=== PATIENT | female | born 1930 | race Caucasian/White ===

== ENCOUNTER 2018-02-24 13:14 | Inpatient (IN) | payer MEDICARE, OTHER ==
[~2018-02-24] VITALS: Ht 149.9 cm; Wt 58.1 kg
--- NOTE | ~2018-02-24 | PROC ---
[address] [address] PROCEDURE REPORT Name: ALVINJOSE Room: [address] IN M.R.#: [id number] Admission: 02/24/18 Attend Phys: Tania Cantu Discharge: Date of : 31 Report #: [id number] THIS REPORT FOR: //name// For GI report, please see the Provation report in Perceptive 7 content. By: [facility] Records Staff [facility] /PATRIC
--- NOTE | ~2018-02-24 | OP ---
[facility] [address] [place] [address] OPERATIVE REPORT Name: ROMEL ESQUIVEL Room: [address] IN M.R.#: [id number] Admission: 02/24/18 Attend Phys: Tania Cantu Discharge: Date of : 31 Report #: [id number] THIS REPORT FOR: //name// CC: Martina Ohara DATE OF SERVICE: 02/27/2018 PREPROCEDURE DIAGNOSIS: Cholecystitis. POSTOPERATIVE DIAGNOSES: Cholelithiasis, cholecystitis. SURGEON: Martine Hardy M.D. SITE IDENTIFICATION SPECIALIST: Eliceo Mckeon, PGY-3; Sumanth Goldstein, PGY-2. OPERATION PERFORMED: Laparoscopic cholecystectomy with intraoperative cholangiogram. ANESTHESIA: General endotracheal and local. ESTIMATED BLOOD LOSS: 250 mL. SPECIMEN REMOVED: Gallbladder. COMPLICATIONS: None. INDICATIONS FOR PROCEDURE: The patient is an 87-year-old female who was admitted to the hospital with abdominal pain. She began having pain after eating a high fat meal without any nausea, vomiting, fevers or chills. Pain was in the right upper quadrant with radiation to the right scapula. On ultrasound, she was found to have thickened gallbladder wall as well as gallstones. On presentation, she also had symptoms of urinary tract infection and an elevated troponin. Imaging did reveal dilated ducts, so she underwent an MRCP preoperatively that showed intra and extrahepatic ductal dilatation. However, her bilirubin was not elevated. Her AST, ALT and alkaline phosphatase were elevated, but down trending prior to her operation, DESCRIPTION OF PROCEDURE: After informed consent was obtained, with risks including but not limited to bleeding, infection, damage to common bile duct, damage to other intra-abdominal structures, hernia pain at incisions, and catastrophic complications including cardiopulmonary failure and , the patient was brought to the operating room and placed in a supine position. General anesthesia was administered. The patient was [place] [address] OPERATIVE REPORT Name: ROMEL ESQUIVEL Room: [address] IN [facility].#: [id number] Admission: 02/24/18 Attend Phys: Tania Cantu Discharge: Date of : 31 Report #: [id number] usual sterile fashion. Antibiotics were normal scheduled antibiotics given on the floor. A surgical pause was held to confirm proper patient and procedure. A 12 mm vertical incision was made superior to the umbilicus. Dissection was carried down using Bovie electrocautery until the fascia was identified and elevated with 2 Kochers, incised further using Bovie electrocautery. The peritoneum was bluntly entered. A finger sweep was performed to ensure no adhesions underlying. The 0 Vicryl was placed on either side of the fascia. Tej port was introduced under direct visualization and secured with the 0 Vicryl. The abdomen was insufflated. Camera was introduced and a brief exploration of the abdomen was undertaken. No damage to structures under the incision was noted. Attention was turned to the right upper quadrant. There was a great deal of omentum stuck to the liver and the gallbladder fossa. This was bluntly swept down with ease. An additional 11 mm port was placed in the epigastrium and two 5 mm ports in the right upper quadrant were all introduced under direct visualization. After these adhesions were swept down, the gallbladder was found to be distended. It was aspirated with dark green contents removed, approximately 60 mL. The gallbladder was then elevated. Adhesions between the duodenum and the gallbladder as well as the omentum were taken down with a combination of cautery and Maryland dissector. The fundus of the gallbladder was retracted laterally. The cystic duct was carefully dissected using the Maryland dissector and the cystic artery as well. Retraction of the gallbladder caused a small portion to tear from the liver bed with some bleeding on the liver bed. Hemostasis was achieved using cautery. A critical view was obtained and confirmed. A clip was placed distally on the cystic duct. A 14 gauge Angiocath was introduced through the right upper quadrant through which the cholangiogram catheter was introduced. Scissors were then used to make an incision in the cystic duct. The cholangiogram catheter was then introduced through this hole and secured with a clip. A cholangiogram was performed with dilated ducts intra- and extrahepatic noted. There was great resistance to filling. There was noted to be contrast into the duodenum. The cystic duct, common duct, common hepatic ducts on left and right were all identified and the cystic duct was confirmed as previously thought on critical view. Glucagon was administered and additional saline and contrast was flushed to attempt to decrease the pressure and increase further flow into the duodenum. This was unsuccessful. The clip securing the catheter was removed. The catheter was removed from the incision. The cystic duct was quadruply clipped proximally. The cystic artery was doubly clipped proximally and singly clipped distally. These were cut using scissors. Gallbladder was then dissected carefully free from the liver bed using Bovie electrocautery. The gallbladder again tore from the liver bed causing some bleeding from the liver bed. This was cauterized extensively. During cautery the bleeding became more brisk. Pressure was held directly with immediate hemostasis. Surgicel was introduced into the abdomen and direct pressure was held against this portion of the liver bed and the gallbladder fossa while the remainder of the gallbladder was dissected free, placed in an EndoCatch bag and removed through the 11 mm epigastric port. The liver bed was inspected and noted to be hemostatic. [address] [address] OPERATIVE REPORT Name: ROMEL ESQUIVEL Room: [address] IN [facility].#: [id number] Admission: 02/24/18 Attend Phys: Tania Cantu Discharge: Date of : 31 Report #: [id number] FloSeal was used to fill the gallbladder fossa and an additional piece of Surgicel was placed within the gallbladder fossa. A suction librarian school was used to copiously irrigate and suction the right upper quadrant. The area was hemostatic after application of topical agents. All ports were removed under direct visualization. The abdomen was desufflated and reinsufflated to note any further bleeding under less pressure, it was still hemostatic. Prior to de-sufflation the Eriberto-Cory was used to close the epigastric port with an 0 Vicryl. The abdomen was desufflated. The fascia was elevated using previous stay sutures. An additional 0 Vicryl was placed in a [id number]-[id number]-hguzi fashion to close the fascia. The stay sutures were closed over top of this. A 4-0 Monocryl was used to close all skin incisions. Wounds were cleansed and dressed with Dermabond. The patient tolerated the procedure well and was transferred to the PACU in stable condition. By: 1600 [id number] nikki Lester
[~2018-02-24 13:14] MED LIST: ASPIR 8181 MG PO; BYSTOLIC 5 MG5 M1 PO; CEFUROXIME500 MG PO; CIPRO500 MG PO; COZAAR 50 MG TA50 M2 PO; COZAAR100 MG PO; FLAGYL500 MG PO; HYDRALAZINE 10M10 MG PO; NAPROSYN500 MG PO; PANTOPRAZOLE SO40 M1 PO; PRAVACHOL20 MG PO; RANEXA500 MG PO
[2018-02-24 13:16] VITALS: BP 175/64
[2018-02-24 13:38] LABS: HEMATOCRIT 28.1 % (37.0-47.0); HEMOGLOBIN 9.4 gm/dL (12.0-15.0); MCHC 33.5 g/dL (28.0-37.0); MCV 77.6 fL (80.0-100.0); NUCLEATED RBCS 0 /100WBC; PLATELET COUNT* 304 thou/uL (150-400); RBC 3.62 mil/uL (4.20-5.00); RDW-CV 15.3 % (10.5-14.5); WBC 9.6 thou/uL (4.0-11.0)
[2018-02-24] MEDS ORDERED: FLAGYL500 MG PO (13:45)
[2018-02-24] MEDS ORDERED: LEXAPRO 10 MG T10 M2 PO (13:45)
[2018-02-24 13:46] LABS: ANION GAP 10 mmol/L (7-16); BUN 20 mg/dL (7-18); CALCIUM 8.8 mg/dL (8.5-10.1); CHLORIDE 96 mmol/L (98-107); CO2 22 mmol/L (21-32); CREATININE 2.1 mg/dL (0.6-1.3); GLUCOSE 162 mg/dL (70-99); POTASSIUM 3.6 mmol/L (3.5-5.1); SODIUM 128 mmol/L (136-145)
[2018-02-24] MEDS ORDERED: VITAMIN D2000 UNIT PO (13:46)
[2018-02-24] MEDS ORDERED: PROTONIX 20 MG20 M1 PO (13:46)
[2018-02-24 13:49] LABS: APTT 30.3 Seconds (25.0-31.3); INR 1.1; PROTIME 10.5 Seconds (9.20-11.50)
[2018-02-24 14:05] LABS: ALBUMIN 3.8 g/dL (3.4-5.0); ALKALINE PHOSPHATASE 212 U/L (46-116); CK-MB MASS 1.9 ng/mL (<0.5-3.6); LIPASE 174 U/L (73-393); MAGNESIUM 1.7 mg/dL (1.8-2.4); NT-PRO BRAIN NAT PEPTIDE 1339 pg/mL (<300); SGOT 117 U/L (15-37); SGPT 45 U/L (30-65); TOTAL BILIRUBIN 0.8 mg/dL (<0.1-1.0); TOTAL PROTEIN 7.4 g/dL (6.4-8.2); TROPONIN-I LEVEL <0.06 ng/mL (<0.06)
[2018-02-24 14:40] LABS: ABSOLUTE LYMPHOCYTES 0.3 thou/uL (0.8-5.3); ABSOLUTE MONOCYTES 0.2 thou/uL (0.0-1.2); ABSOLUTE NEUTROPHILS 9.1 thou/uL (1.6-8.1); ANISOCYTOSIS Occasional; PLATELET ESTIMATE ADEQUATE
[2018-02-24 14:41] LABS: MICROCYTES Occasional
[2018-02-24 16:05] VITALS: BP 147/82
[2018-02-24 16:34] VITALS: BP 173/67
[2018-02-24 16:52] LABS: URINE BILIRUBIN NEGATIVE (Negative); URINE BLOOD NEGATIVE (Negative); URINE CLARITY CLEAR; URINE COLOR YELLOW; URINE GLUCOSE-RANDOM NEGATIVE (Negative); URINE KETONES NEGATIVE (Negative); URINE PROTEIN TRACE (Negative); URINE SPECIFIC GRAVITY 1.015 (1.005-1.030); URINE UROBILINOGEN 0.2 E.U./dl (0.2-1.0)
[2018-02-24 16:56] LABS: URINE LEUKOCYTES-REFLEX 2+ (Negative); URINE NITRITE-REFLEX POSITIVE (Negative)
[2018-02-24 17:00] LABS: BACTERIA-REFLEX >30 Many /HPF (None Seen); SQUAMOUS 4-10 Moderate /LPF (0-3); URINE RBC 3-10 Few /HPF (0-2); URINE WBC-REFLEX >25 Many /HPF (0-5)
[2018-02-24 17:01] LABS: CRYSTALS None Seen /LPF (None Seen); HYALINE CASTS 4-10 Moderate /LPF (None Seen); MUCUS 0-3 Light strn/LPF (None Seen)
--- NOTE | 2018-02-24 19:05 | NUR ---
PATIENT ADMITTED TO ROOM 202 FROM ER. ALERT AND ORIENTED 4. DENIES CHEST PAIN, C/O ABD PAIN AND NAUSEA. PRN PHENERGAN INFUSING AT THIS TIME. DR. ALLEN NOTIIED OF NEGATIVE CARDIAC ENZYMES AND EKG. UP TO BATHROOM WITH ASSISTANCE. REFUSING DINNER THIS EVENING. ORIENTED TO CALL LIGHT. CALL LIGHT WITHIN REACH, WILL CONTINUE TO MONITOR.
[2018-02-24 20:00] VITALS: BP 123/44
[2018-02-25] VITALS: BP 144/68
--- NOTE | 2018-02-25 02:03 | NUR ---
ASSUMED PT CARE AT 19;15 REPORT RECEIVED FORM NURSE, PT IS ALET AWAKE, ORIENTED X 4 ANXIOUS ABOUT HER HEADACHE. VITAL SIGNS WITHIN NORMAL LIMIT. TYLENOL WAS ADMINISTERED FOR HEADACHE WHICH HAS SUBSIDES. O2 SATURATIO WAS 92 % ON RA . OXYGEN WAS INITIATED 2L NC PT SATURATION WENT UP TO 94%. 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 IV LINE PATENT NS RUNNING AT 75CC/HR ORDERED. ROUTINE EKG PERFORMED RESULT SHOWS SINUS RYTHM. HOSPITALIST LEATHER NOVELTY PARTS CUTTER PLACED DR ON NPO FOR AFTER MIDNIGHT FOR MACHINIST SUPERVISOR CONSULT IN THE MORNING. DR SAVAGE WAS FOUND AND EXPECTING TO SEE PT AT 07:30 AM DISCUSSED WITH ANSWERING SERVICE. BALJINDER CONTINUE TO MONITOR.
[2018-02-25 04:00] VITALS: BP 151/56
--- NOTE | 2018-02-25 04:06 | NUR ---
PT HEART RYTHM CONVERTED TO A FIB AT 0400. DR ISSA CONTATED. PT IS ASYMPTOMATIC , RATE CONTROLLEF I 60 AND BELOW 60. EXCEPT FOR SOB WHICH WAS DISPLAYED BEFORE BELOW 50 SOMETIMES. STAT EKG ORDER
--- NOTE | 2018-02-25 04:20 | NUR ---
EKG RESULT SHOWS A FIB. NO NEW ORDER RECEIVED/ WILL CONTINUE TO MAKONITOR TE WORK EVIRONNENT MICHELET/
--- NOTE | 2018-02-25 07:15 | NUR ---
ASSUMED CARE OF PT ASSESSED AND DOCUMENTED. PT ON CARDIAC MONITER TRACING A-FIB HR 66. PT IS A&O. VSS WNL. PT IS AFEBRILE. SHE HAS NO C/O N&V. SHE DOES STATE SHE HAS CHEST PAIN RATES A 6 ON PAIN SCALE BUT REQUIRES NO PAIN MED.PT ON 3L OF OF STAT 98 SO LOWERED TO 2L. BED IS IN LOW POSITION CALL LIGHT IS IN REACH. WM.
[2018-02-25 08:00] VITALS: BP 133/46
[2018-02-25 12:30] VITALS: BP 173/55
--- NOTE | 2018-02-25 14:14 | NUR ---
Pt is A&O. Pt resides at [facility]. Pt is independent with ADLS and IADLs. Pt stated that she has the choice to either cook her meals or dine in the DR, Pt stated that the majority of the time she cooks her own meals. House cleaning is provided. No DME. Hx of [facility]. No hx of SNF. Strong support sx that is involved in POC. Goal is to return home at dc. Following for dc needs.
--- NOTE | 2018-02-25 15:04 | EKG ---
[place] [address] ELECTROCARDIOGRAM REPORT Name: ROMEL ESQUIVEL Room: [address] ADM IN .R.#: [id number] Admission: 02/24/18 Attend Phys: Tania Cantu Discharge: Date of : 31 Report #: [id number] THIS REPORT FOR: //name// [facility] ED Test Date: 2018-02-24 Test Time: 13:21:41 Pat Name: ROMEL ESQUIVEL Department: Room: [address] Gender: F Net Software Engineer: GERSON : 1930 Requested By: Harvinder Odonnell Order Number: [id number] Reading MD: Alex Garrett Measurements Intervals [place] Rate: 69 P: 27 NM: 217 QRS: -21 QRSD: 106 T: 81 QT: 458 QTc: 491 Interpretive Statements Sinus rhythm Borderline prolonged NM interval Borderline left axis deviation Repol abnrm suggests ischemia, anterolateral Compared to ECG 02/19/2017 20:47:12 Possible ischemia now present Electronically Signed On 02-25-2018 15:03:49 CDT by Alex Garrett [email or web address] <ELECTRONICALLY SIGNED> By: Alex Garrett MD, FAC 02/25/18 1503 1321 1321 Alex Garrett MD, [facility] /EPI
--- NOTE | 2018-02-25 15:06 | EKG ---
[place] [address] ELECTROCARDIOGRAM REPORT Name: ROMEL ESQUIVEL Room: [address] IN [facility]#: [id number] Admission: 02/24/18 Attend Phys: Tania Cantu Discharge: Date of : 31 Report #: [id number] THIS REPORT FOR: //name// [facility] Test Date: 2018-02-24 Test Time: 16:24:46 Pat Name: ROMEL ESQUIVEL Department: Room: Gender: F Slate Roofer: : 1930 Requested By: Harvinder Odonnell Order Number: [id number] MD: Alex Garrett Measurements Intervals [place] Rate: 89 P: 120 MN: 256 QRS: -19 QRSD: 151 T: 92 QT: 353 QTc: 430 Interpretive Statements Sinus rhythm Prolonged MN interval t wave changes noted Electronically Signed On 02-25-2018 15:06:26 CDT by Alex Garrett [email or web address] <ELECTRONICALLY SIGNED> By: Alex Garrett MD, [facility] 02/25/18 1506 1624 1624 Alex Garrett MD, [facility] /EPI
--- NOTE | 2018-02-25 15:08 | EKG ---
[place] [address] ELECTROCARDIOGRAM REPORT Name: ROMEL ESQUIVEL Room: [address] ADM IN M.R.#: [id number] Admission: 02/24/18 Attend Phys: Tania Cantu Discharge: Date of : 31 Report #: [id number] THIS REPORT FOR: //name// [facility] Test Date: 2018-02-24 Test Time: 19:37:51 Pat Name: ROMEL ESQUIVEL Department: Room: [address] Gender: F Head Of Store Operations: MARY : 1930 Requested By: Harvinder Odonnell Order Number: [id number] Zac MD: Alex Garrett Measurements Intervals [place] Rate: 80 P: 8 VA: 239 QRS: -24 QRSD: 94 T: -11 QT: 452 QTc: 522 Interpretive Statements Sinus rhythm Prolonged VA interval Borderline left axis deviation Abnormal R-wave progression, late transition Borderline repolarization abnormality Prolonged QT interval Electronically Signed On 02-25-2018 15:08:30 CDT by Alex Garrett [email or web address] <ELECTRONICALLY SIGNED> By: Alex Garrett MD, [facility] 02/25/18 1508 36 36 Alex Garrett MD, [facility] /EPI
[2018-02-25 15:21] VITALS: BP 140/42
--- NOTE | 2018-02-25 15:22 | EKG ---
[place] [address] ELECTROCARDIOGRAM REPORT Name: ROMEL ESQUIVEL Room: [address] ADM IN M.R.#: [id number] Admission: 02/24/18 Attend Phys: Tania Cantu Discharge: Date of : 31 Report #: [id number] THIS REPORT FOR: //name// [facility] Test Date: 2018-02-25 Test Time: 04:16:17 Pat Name: ROMEL ESQUIVEL Department: Room: [address] Gender: F Appraisal Manager: MARY : 1930 Requested By: Cathy Dewitt Order Number: [id number] Zac MD: Alex Garrett Measurements Intervals [place] Rate: 60 P: WI: QRS: -25 QRSD: 104 T: 26 QT: 517 QTc: 517 Interpretive Statements sinus rhythm with first degree av block Borderline left axis deviation RSR' in V1 or V2, probably normal variant Borderline repolarization abnormality Prolonged QT interval Electronically Signed On 02-25-2018 15:22:16 CDT by Alex Garrett [email or web address] <ELECTRONICALLY SIGNED> By: Alex Garrett MD, [facility] 02/25/18 1522 0416 0416 Alex Garrett MD, [facility] /EPI
--- NOTE | 2018-02-25 16:21 | CON ---
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 The old records are not available. The patient has been here to [facility] in the past. The history is obtained from the patient. Apparently 6 years ago, she had chest pain and was admitted to [facility]. She is found to have multivessel coronary artery disease. She underwent multivessel bypass surgery she claims during the night. She had a free radial graft placed from her left arm. She notes a couple of years later, she had a stent placed at [facility]. She actually had a nuclear stress test here at [facility] a year ago, 12/2016. Her nuclear stress test showed no perfusion abnormalities with ejection fraction of 60%. She also had an echocardiogram at that time that showed ejection fraction of 60%. Left ventricular hypertrophy, left atrial enlargement, mild mitral regurgitation. The patient states she has been doing fairly well and continues to see Dr. Gage. She goes for walks every day. She has had no recent chest pain. She has been short of breath, but no palpitations, syncope. She was doing well until yesterday, she felt a pain in her right upper quadrant of her abdomen. She apparently felt nauseated, vomited. She was brought here to [facility] and admitted. Cardiology consultation requested. She denied any chest pain, palpitations, syncope. She has had no blood in her vomit. She denied any rash. PAST MEDICAL HISTORY: Otherwise significant for an appendectomy. She does have a history of hypertension, hyperlipidemia. No history of diabetes. MEDICATIONS: On admission included aspirin, nebivolol, pravastatin, Ranexa. ALLERGIES: SHE HAS AN ALLERGY TO PENICILLIN, SULFA. FAMILY HISTORY: Her mom of heart attack. 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 She currently lives in a shelter home. No smoking or alcohol abuse. REVIEW OF SYSTEMS: She has had no history of stroke or asthma. She had a peptic ulcer years ago. No history of kidney disease. She has had breast cancer in the past. No psychiatric illness. No chronic skin condition. PHYSICAL EXAMINATION: [place] [address] CONSULTATION Name: ROMEL ESQUIVEL Room: [address] IN .R.#: [id number] Admission: 02/24/18 Attend Phys: Tania Cantu Discharge: Date of : 31 Report #: [id number] GENERAL: Revealed an elderly female, lying in bed. She appeared in no acute distress. VITAL SIGNS: She had a blood pressure of 140/70, pulse 70. She is afebrile. HEENT: She was anicteric, conjunctiva pink. Mucous membranes moist. NECK: Veins nondistended. Neck was supple. CHEST: Clear to auscultation. CARDIOVASCULAR: Regular rate and rhythm without murmur. ABDOMEN: Soft and she had mild right upper quadrant tenderness. EXTREMITIES: Had no edema. Dorsalis pedis pulse could not be palpated. SKIN: Cool and dry. NEUROLOGIC: Nonfocal. LABORATORY DATA: ECG showed a sinus rhythm with nonspecific T-wave changes. Her workup yesterday, she had CT scan of the abdomen and pelvis that showed gallstone, prominent bile duct, renal scarring, possible diverticulitis. She had a CT scan of the chest that showed a hiatal hernia. She had a previous CT scan of the head in 02/2017 that showed no acute abnormality. Sodium 128, BUN 20. Creatinine 2.1, which is elevated from a year ago. Liver function studies showed normal findings. Troponin was 0.16. BNP 1339. White blood cell count 9.6, hemoglobin 9.4, which was unchanged from 2017. IMPRESSION AND RECOMMENDATIONS: 1. Right upper quadrant pain. Suspect cholecystitis. 2. Coronary artery disease. No history of angina. Troponin borderline elevated. Recommend no further cardiac workup. 3. Hypertension. The patient is on a beta mindy. 4. Hyperlipidemia. The patient is on a statin drug. 5. History of breast cancer. 6. Chronic kidney disease. 7. Anemia. No history of bleeding. <ELECTRONICALLY SIGNED> By: Alex Garrett MD, [facility] 02/25/18 1621 0925 [id number] Garrett MD, [facility] /nt
--- NOTE | 2018-02-25 16:51 | NUR ---
PT HAS RESTED IN HER ROOM THIS SHIFT. SHE WAS NPO UNTILL APPROX 1550 WHEN I GAVE HER A BOXED LUNCH. PT IS TO BE NPO AFTER MIDNIGHT FOR MRCP TOMORROW. EDUCATION GIVEN ON DEMAND. HOURLY ROUNDING COMPLETE.
[2018-02-25 20:00] VITALS: BP 131/61
[2018-02-26] VITALS (7 sets, daily range): BP systolic 129–164; BP diastolic 55–100
--- NOTE | 2018-02-26 02:13 | NUR ---
ASSUMED PT CARE AT 19:15 REPORT RECEIVED FROM NURSE. PT IS ALERT AWAKE ORIENTED X4 SINUS RYTHM 1ST DEGREE AV BLOCK ON THE MONITOR. COMPLAIN OF PAIN IN LOWER BACK. TYLEMOL GIVEN. PAIN SUBSIDES. IV ANTIBIOTIC ADMINISTERED ORDERED. IV FLUID RUNNING AT 100CC.HR. PT ON RA SATURATIONIS 96% NO SOB NOTED. VITALS ARE WITHIN NORMAL LIMT. SHE IS NPO AFTER MIDNIGHT FOR EGD IN THE AM. PT HAD EPISODE OF HARD COUGHING TODAY AND SPUTUM WAS THICK WHITE SMALL AMOUNT. SHE SAID SHE FELT WARM BUT DD NOT HAVE A TEMP. WET COLD COMPRESSED WAS APPLIED TO HER HEAD AND SIP OF SEVEN UP PROVIDED. PT SAYS SHE FEELS BETTER. SHE IS NOW LAYING IN BED. BED ALARM ON. WILL CONTINUE TO MONITOR
[2018-02-26 05:21] LABS: ALBUMIN 2.8 g/dL (3.4-5.0); DIRECT BILIRUBIN 0.2 mg/dL (<0.1-0.3); TOTAL BILIRUBIN 0.5 mg/dL (<0.1-1.0); TOTAL PROTEIN 5.9 g/dL (6.4-8.2)
[2018-02-26 06:00] LABS: % SATURATION 4 % (20-39); IRON 11 ug/dL (50-175)
--- NOTE | 2018-02-26 11:18 | NUR ---
ASSUMED CARE OF PATIENT THIS AM AT 0730. PATIENT IS ALERT AND ORIENTED X 4. SHE DENIES PAIN, NAUSEA AND VOMITING THIS AM. PATIENT KEPT NPO FOR PROCEDURES TODAY. IV FLUID INFUSING AT 100/HR. PATIENT HAS BIBASILAR CRACKLES ON AULSCULTATION. PATIENT TAKEN TO RADIOLOGY PER W/C FOR MRI AND RETURNED. TELE SHOWS SR WITH A 1DAVB. WILL CONTINUE TO MONITOR COMFORT AND LAB RESULTS.
--- NOTE | 2018-02-26 16:59 | CON ---
[address] [address] CONSULTATION Name: ROMEL ESQUIVEL Room: [address] IN .R.#: [id number] Admission: 02/24/18 Attend Phys: Tania Cantu Discharge: Date of : 31 Report #: [id number] THIS REPORT FOR: //name// CC: Martina Voss DO DATE OF SERVICE: 02/25/2018 REQUESTING PHYSICIAN: Chano Voss DO HISTORY OF PRESENT ILLNESS: This is an 87-year-old female with acute abdominal pain, which prompted her to come to hospital. Since hospitalization, the patient was found to have cholelithiasis and cholecystitis as she has thickened gallbladder wall, gallstones, and positive Crane sign per imaging. The patient also found to be anemic with hemoglobin in range of 9, which is microcytic as MCV is 77. She denies any hematochezia or melena. She has never had any endoscopic evaluation. She complains of early satiety, which has been a problem for her for a long time. She takes a PPI for GERD. PAST MEDICAL HISTORY: Significant for history of hypertension, coronary artery disease status post CABG, bilateral mastectomy, appendectomy, pneumonia, dyslipidemia, depression, chronic aspirin use, and cholelithiasis. ALLERGIES: SIGNIFICANT TO PENICILLIN, SULFA AND THE PATIENT HAS LATEX ALLERGY. MEDICATIONS: Please refer to hospital MAR. 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 FAMILY HISTORY: Negative for GI malignancy. PHYSICAL EXAMINATION: VITAL SIGNS: Reveals blood pressure of 140/42, respirations 17, pulse 66, temperature 99.3. LUNGS: Clear. CARDIOVASCULAR: Regular. ABDOMEN: Soft, mildly tender to palpation in the right upper quadrant. Bowel sounds are positive. NEUROLOGIC: The patient is hard of hearing, but is alert and oriented x 3. LABORATORY DATA: Reveal sodium of 128, potassium is 3.6, BUN is 20, creatinine is 2.1, AST is 117, ALT is 45, alkaline phosphatase is 212. CPK is 517. INR is 1.1. WBC is 9.6 with hemoglobin of 9.4 and platelets of 304. UA reveals wbc's more than 25 [place] [address] CONSULTATION Name: ROMEL ESQUIVEL Room: [address] IN [facility].#: [id number] Admission: 02/24/18 Attend Phys: Tania Cantu Discharge: Date of : 31 Report #: [id number] IMAGING: CT of abdomen and pelvis and ultrasound has been obtained and discussed above. Note that MRI is pending. ASSESSMENT AND PLAN: The patient with anemia with a hemoglobin of 9 and MCV of 77. She has never been scoped and also complains of early satiety. We will consider EGD. She also has cholecystitis and rhabdomyolysis. Her elevation of transaminases is suggestive of rhabdo as her ALT is normal and AST is 3 times ALT. The patient's alkaline phosphatase is also elevated. We will consider GGT and await MRCP results. Finally, the patient is hyponatremic, her sodium should be replaced. We will continue to monitor her during this hospital stay. I will make further recommendation after completing her EGD and reviewing her MRCP. <ELECTRONICALLY SIGNED> By: Carolina Key MD 02/26/18 1659 1559 [id number] Key MD /nt
--- NOTE | 2018-02-26 19:20 | NUR ---
ASSUMED CARE AT 1920, ASSESSMENT CHARTED. PATIENT ALERT/ORIENTED X4, FORGETFUL AT TIMES, RESTING IN BED. ON TELE, SR. ON ROOM AIR, SOB NOTED WITH TALKING/EXERTION, SATS 93%. IVF INFUSING TO RIGHT WRIST IV SITE PER OCT. UP WITH SBA TO BATHROOM. DENIES PAIN OR NEEDS BUT STATES HAVING TENDERNESS OVER RUQ WHEN PALPATED. DR. ISSA NOTIFIED REGARDING PATIENT BEING SOA, ORDERS RECEIVED AND NOTED. REFUSING SCD'S. BED ALARM ON. CALL LIGHT WITHIN REACH, ENCOURAGED TO CALL FOR NEEDS.
[2018-02-27] VITALS (7 sets, daily range): BP systolic 134–165; BP diastolic 49–78
--- NOTE | 2018-02-27 | NUR ---
DR. ISSA NOTIFIED REGARDING XRAY RESULTS, NEW ORDERS RECEIVED. UP WITH SBA TO BATHROOM. BED ALARM ON. WILL MONITOR.
[2018-02-27 04:31] LABS: HEMOGLOBIN 7.5 gm/dL (12.0-15.0); RDW-CV 15.7 % (10.5-14.5)
[2018-02-27 04:36] LABS: HEMATOCRIT 22.5 % (37.0-47.0); MCHC 33.3 g/dL (28.0-37.0); MPV 7.8 fl. (7.2-11.1); RBC 2.89 mil/uL (4.20-5.00); WBC 8.1 thou/uL (4.0-11.0)
[2018-02-27 05:34] LABS: ALBUMIN 2.7 g/dL (3.4-5.0); CALCIUM 8.1 mg/dL (8.5-10.1); CREATININE 1.7 mg/dL (0.6-1.3); MAGNESIUM 1.5 mg/dL (1.8-2.4); POTASSIUM 3.1 mmol/L (3.5-5.1); TOTAL BILIRUBIN 0.6 mg/dL (<0.1-1.0); TOTAL PROTEIN 5.9 g/dL (6.4-8.2)
--- NOTE | 2018-02-27 07:25 | NUR ---
PATIENT RESTING IN BED. REPORT GIVEN TO ONCOMING NURSE. PATIENT NOTED TO HAVE IMPROVEMENT WITH BREATHING. DR. ISSA NOTIFIED WITH AM LABS, ORDERS RECEIVED. BED ALARM ON. WILL MONITOR.
--- NOTE | 2018-02-27 11:46 | NUR ---
ASSUMED CARE OF PT AROUND 0730 THIS AM. REFER TO ASSESSMENT. PT GETTING IV POTASSIUM REPLACEMENT AND REQUIRING BLOOD TRANSFUSION AT THIS TIME BEFORE SURGERY. ATTEMPTED TO OBTAIN A 2ND IV ACCESS WITHOUT SUCCESS TO INFUSE BOTH. PT TO HAVE SURGERY TO REMOVE GALLBLADDER ANTICIPATED AT 1300 TODAY. CURRENTLY NPO. HAD TO GIVE ONE DOSE ORAL MAG THIS AM D/T NO IV MAG IN HOSPITAL. VSS. SISTER AT BEDSIDE. NO OTHER CONCERNS AT THIS TIME. CLWR. WCTM.
[2018-02-27 19:17] LABS: HEMATOCRIT 33.7 % (37.0-47.0); HEMOGLOBIN 11.4 gm/dL (12.0-15.0); MCH 27.8 pg (26.0-34.0); MCV 81.7 fL (80.0-100.0); MPV 7.9 fl. (7.2-11.1); NUCLEATED RBCS 0 /100WBC; PLATELET COUNT* 230 thou/uL (150-400); RBC 4.12 mil/uL (4.20-5.00); RDW-CV 16.4 % (10.5-14.5); WBC 10.1 thou/uL (4.0-11.0)
[2018-02-27 19:22] LABS: CALCIUM 8.7 mg/dL (8.5-10.1); CREATININE 1.5 mg/dL (0.6-1.3)
[2018-02-27 19:27] LABS: POTASSIUM 4.2 mmol/L (3.5-5.1)
[2018-02-27 19:39] LABS: ABSOLUTE LYMPHOCYTES 0.2 thou/uL (0.8-5.3); ABSOLUTE MONOCYTES 0.3 thou/uL (0.0-1.2); ABSOLUTE NEUTROPHILS 9.6 thou/uL (1.6-8.1); ANISOCYTOSIS 1+; PLATELET ESTIMATE ADEQUATE
[2018-02-27 19:40] LABS: OVALOCYTES Occasional
[2018-02-28] VITALS (7 sets, daily range): BP systolic 146–186; BP diastolic 65–91
--- NOTE | 2018-02-28 03:59 | NUR ---
ASSUMED PT CARE AT 1915 REPORT RECEIVED FROM NURSE. PT IS ALERT SLEEPING IN BED. VITAL SIGN WITHIN NORMAL LIMIT. DOES NOT COMPLAIN OF PAIN AT THIS TIME. SHE IS ON 3 L NC AND SATURATION IS 100% SOB ON CONTINUOUS PULSE OXYGEN WHICH HAS BEEN READING A SATURATION OF 96% AND ABOVE FOR THE WHOLE NIGHT. IV LINE PATENT SALINE LOCK. FOUR LAP SITES ARE OPEN TO AIR, NO DRESSING, NO DRAINAGE, PAIN LEVEL OF 3 AT SITES TYLENOL GIVEN . PT BP WAS 170/100 AT MIDNIGHT LABETOLOL ORDER RECEIVED FRON SAND MIXER OPERATOR. AFTER 1 HOUR OF ADMINISTRATION OF BP MED BP DECREASED TO 146/65 . WILL CONTINUE TO MONITIOR
[2018-02-28 04:27] LABS: HEMATOCRIT 31.2 % (37.0-47.0); HEMOGLOBIN 10.6 gm/dL (12.0-15.0); MCH 27.5 pg (26.0-34.0); MCHC 33.9 g/dL (28.0-37.0); MPV 7.8 fl. (7.2-11.1); RBC 3.86 mil/uL (4.20-5.00); RDW-CV 15.8 % (10.5-14.5); WBC 10.3 thou/uL (4.0-11.0)
[2018-02-28 04:41] LABS: ALBUMIN 2.9 g/dL (3.4-5.0); CALCIUM 8.1 mg/dL (8.5-10.1); CREATININE 1.8 mg/dL (0.6-1.3); MAGNESIUM 1.7 mg/dL (1.8-2.4); POTASSIUM 4.1 mmol/L (3.5-5.1); TOTAL BILIRUBIN 0.8 mg/dL (<0.1-1.0); TOTAL PROTEIN 6.2 g/dL (6.4-8.2)
--- NOTE | 2018-02-28 16:57 | NUR ---
PATIENT SITTING IN CHAIR MOST OF SHIFT. PRN TYLENOL GIVEN X 1 FOR ABD PAIN. SURGERY REQUESTING THAT GI ROUND ON PATIENT REGARDING CHOLANGIOGRAM ON 02/27, SPOKE WITH DR. ELISE AND HERE ROUNDING ON PATIENT. PATIENT ADVANCED TO FULL LIQUID DIET THIS EVENING. PATIENT HAD SMALL BM'S X 2. PATIENT CALLING OUT STATING SHE THOUGHT THERE WAS BLOOD IN STOOL, THIS NURSE OBSERVED STOOL WITH URINE IN TOILET AND NO BLOOD NOTED. PATIENT URINE ORANGE IN COLOR. DR. ELISE AWARE. NPO AFTER MIDNIGHT FOR POSSIBLE ERCP TOMORROW.
[2018-03-01 03:23] LABS: URINE BILIRUBIN NEGATIVE (Negative); URINE BLOOD NEGATIVE (Negative); URINE CLARITY CLEAR; URINE COLOR YELLOW; URINE GLUCOSE-RANDOM NEGATIVE (Negative); URINE KETONES NEGATIVE (Negative); URINE PROTEIN 1+ (Negative); URINE UROBILINOGEN 0.2 E.U./dl (0.2-1.0)
[2018-03-01 03:27] LABS: URINE LEUKOCYTES-REFLEX 2+ (Negative); URINE NITRITE-REFLEX POSITIVE (Negative)
[2018-03-01 03:47] LABS: BACTERIA-REFLEX >30 Many /HPF (None Seen); CASTS None Seen /LPF (None Seen); CRYSTALS None Seen /LPF (None Seen); MUCUS 0-3 Light strn/LPF (None Seen); SQUAMOUS 0-3 Few /LPF (0-3); URINE RBC 0-2 Rare /HPF (0-2); URINE WBC-REFLEX >25 Many /HPF (0-5); WBC CLUMPS Moderate (None Seen)
[2018-03-01 04:00] VITALS: BP 150/71
[2018-03-01 04:24] LABS: HEMATOCRIT 30.2 % (37.0-47.0); HEMOGLOBIN 10.2 gm/dL (12.0-15.0); MCH 27.1 pg (26.0-34.0); MCHC 33.7 g/dL (28.0-37.0); MCV 80.4 fL (80.0-100.0); MPV 7.8 fl. (7.2-11.1); RBC 3.75 mil/uL (4.20-5.00); WBC 12.3 thou/uL (4.0-11.0)
--- NOTE | 2018-03-01 04:30 | NUR ---
ASSUMED PT CARE AT 1930, PT IS A&OX4, PT IS FORGETFUL AND CONFUSED AT TIMES. PT IS TRACING NSR ON THE MONITOR, ON 2L NC SATTING MID TO HIGH 90'S. PT IS ONE DAY POST OP WITH A LAP MAMIE. 4 LAP SITES CDI TO ABDOMEN. PT C/O A HEADACHE ONCE THIS SHIFT. PRN PAIN MEDICATION GIVEN PER OCT. BED IN LOW POSITION, CALL LIGHT IN REACH, BED ALARM ON, YELLOW ARM BAND AND SOCKS IN PLACE. HOURLY ROUNING COMPLETED FOR PT SAFETY.
[2018-03-01 05:14] LABS: ALBUMIN 2.8 g/dL (3.4-5.0); CALCIUM 7.8 mg/dL (8.5-10.1); CREATININE 1.6 mg/dL (0.6-1.3); MAGNESIUM 1.9 mg/dL (1.8-2.4); PHOSPHORUS* 2.4 mg/dL (2.5-4.9); TOTAL BILIRUBIN 0.6 mg/dL (<0.1-1.0); TOTAL PROTEIN 5.5 g/dL (6.4-8.2)
[2018-03-01 09:00] VITALS: BP 169/74
[2018-03-01 11:35] VITALS: BP 169/74
[2018-03-01] MEDS ORDERED: CEFUROXIME250 MG PO (11:41)
--- NOTE | 2018-03-01 13:24 | NUR ---
PATIENT REFUSING ERCP TODAY, SPOKE WITH DR. ELISE AND OK FOR PATIENT TO DISCHARGE AND HAVE LFT'S DRAWN IN 1 WEEK. SURGERY OK TO DISCHARGE HOME. PATIENT TOLERATED LOW FAT DIET. IV DC'D. VERBALIZED UNDERSTANDING OF PAPERWORK AND SCRIPT FOR UTI ABX. PATIENT TAKEN OUT VIA WHEELCHAIR WITH STAFF AND ALL BELONINGS.
--- NOTE | 2018-03-04 07:52 | CON ---
[address] [address] CONSULTATION Name: ROMEL ESQUIVEL Room: [address] IN .R.#: [id number] Admission: 02/24/18 Attend Phys: Tania Cantu Discharge: 03/01/18 Date of : 31 Report #: [id number] THIS REPORT FOR: //name// CC: Martina Voss DATE OF SERVICE: 03/01/2018 ATTENDING PHYSICIAN: Dr. Voss. REASON FOR EVALUATION: Complicated urinary tract infection due to moderately resistant Escherichia coli. HISTORY OF PRESENT ILLNESS: Chart reviewed, the patient examined. This is an 87-year-old with known vasculopathy, coronary artery disease who was admitted with fairly severe abdominal pain. She states at that point, she almost passed out. She was evaluated and found to have cholecystitis secondary to cholelithiasis. She did undergo resuscitative measures 02/27/2018 and underwent laparoscopic cholecystectomy with intraoperative cholangiogram. Postop LFTs are still mildly elevated. There is some recommendation for ERCP; however, she has declined. EGD did show mild hiatal hernia. It is not entirely clear, but on 02/28/2018, blood cultures, urine culture were collected. Urine culture now with growth of Escherichia coli as notably urinalysis did show marked pyuria, greater than 25 white cells. She denies significant difficulty with urinating. No burning. No flank pain. Does have residual right upper quadrant pain. She has not been febrile. She was started empirically on Levaquin, results today show it is in vitro resistant. ALLERGIES: TO PENICILLINS AND SULFA, BOTH OF WHICH CAUSES A RASH, ALSO LATEX. CURRENT MEDICATIONS: Include levofloxacin, cholecalciferol, escitalopram, pantoprazole, atorvastatin, hydrocodone. PAST MEDICAL HISTORY: Known coronary artery disease, hypertension, bilateral breast cancer with mastectomies, appendectomy. SOCIAL HISTORY: Nonsmoker, no ethanol. FAMILY HISTORY: Noncontributory. REVIEW OF SYSTEMS: As above. Denies any significant pulmonary-related complaints. She is on supplemental oxygen, which she states that she is on at night [facility]. PHYSICAL EXAMINATION: GENERAL: Pleasant, alert, cooperative, mildly undernourished[place] [address] CONSULTATION Name: ROMEL ESQUIVEL Room: [address]#: [id number] Admission: 02/24/18 Attend Phys: Tania Cantu Discharge: 03/01/18 Date of : 31 Report #: [id number]. VITAL SIGNS: Temperature 98.6, pulse 63, respirations 16, blood pressure 150/71. SKIN: Warm, dry, no rashes. HEENT: She has got nasal cannula oxygen in place. NECK: Supple. LUNGS: Few scattered coarse breath sounds. HEART: Regular. Borderline bradycardic. I do not appreciate a murmur. ABDOMEN: Soft, nontender, nondistended. No CVA tenderness. GENITOURINARY AND RECTAL: Deferred. LABORATORY DATA: Urine culture with greater than 100,000 gram-negative rods identified as Escherichia coli. It is in vitro resistant to ampicillin, cefazolin and quinolones. Blood culture is sterile thus far. Electrolytes: Sodium 131, potassium 4, chloride 102, bicarbonate is 20, BUN and creatinine 29 and 1.6, glucose of 100, total bilirubin of 0.6, albumin 2.8, total protein of 5.5. LFTs unremarkable. CBC: White count 12.3, H and H 10.2 and 30.2, platelets of 240. Urinalysis greater than 25 white cells, greater than 30 bacteria. Lactic acid of 2.0, most recently on 02/28/2018. Prealbumin of 12.8. ASSESSMENT AND PLAN: Complicated urinary tract infection. At this point, we did have confirmation of in vitro resistant to the quinolones. We will adjust therapy. Sounds as if she may be discharged. Treat for perhaps 7 days. This prescription being written. Thank you. We will follow as needed. <ELECTRONICALLY SIGNED> By: Paulie Caruso MD 03/04/18 0752 0932 [id number] Caruso MD /nt
--- NOTE | 2018-03-04 15:08 | PATH ---
[address] [address] PATHOLOGY RPT PROCEDURE Name: ROMEL ESQUIVEL Room: [address] IN M.R.#: [id number] Admission: 02/24/18 Date of : 31 Discharge: 03/01/18 Report #: [id number] Path Case #: [id number] [facility] Accession Number: [id number] . 01 Material submitted: . GALLBLADDER . 01 Clinical history: . Abdominal pain, cholecystitis, cholelithiasis . 02 Diagnosis: Gallbladder: - Chronic follicular cholecystitis and cholelithiasis. . (BECKY:mml; 03/01/18) [facility]/03/01/2018 . 02 Electronically signed: . Daron Bartlett MD, Pathologist NPI- [id number] . 01 Gross description: . Received in formalin labeled "Romel [place], gallbladder" is a glistening, velasquez, pink, markedly hemorrhagic, collapsed, and intact gallbladder(8.6 x 4.0 x 2.2 cm). The lumen contains 2 mL thick tenacious yellow-green bile and a few "sand-like" black calculi, 0.4 x 0.3 x 0.3 cm in aggregate. The wall is pliable with thickness ranging from 0.1 cm-0.3 cm. The mucosa is diffusely finely granular, slightly roughened, green, and hyperemic. Optical Glass Etcher sections are submitted as A1. (HARJIT; 02/28/2018) JBR/JBR . 02 Pathologist provided ICD-10: K80.10 . 02 CPT . 055309 Performed at: [address], [place] [id number] MD Jh Almaguer MD Phone: [phone] Performed at: 02 [facility] [address], [place], [place] [id number] MD Daron Bartlett MD Phone: [phone]
== END 2018-03-01 12:45 | disposition home or self-care (01) | DRG 417 ==
LOC: M.ERS 13:14 → M.2W 14:16 → M.TBA-ER 14:16 → M.2W 15:52
PROVIDERS: Family Medicine; Internal Medicine; Internal Medicine Gastroenterology; Surgery; ADMIT Internal Medicine
PROC: 0DJ08ZZ Inspection of Upper Intestinal Tract, Via Natural or Artificial Opening Endoscopic (ICD-10-PCS; principal; 2018-02-26)
PROC: 0FT44ZZ Resection of Gallbladder, Percutaneous Endoscopic Approach (ICD-10-PCS; 2018-02-27)
PROC: BF131ZZ Fluoroscopy of Gallbladder and Bile Ducts using Low Osmolar Contrast (ICD-10-PCS; 2018-02-27)
PROC: 30233N1 Transfusion of Nonautologous Red Blood Cells into Peripheral Vein, Percutaneous Approach (ICD-10-PCS; 2018-02-27)
DX: K80.11 Calculus of gallbladder with chronic cholecystitis with obstruction (principal); I50.33 Acute on chronic diastolic (congestive) heart failure; E43 Unspecified severe protein-calorie malnutrition; I13.0 Hypertensive heart and chronic kidney disease with heart failure and stage 1 through stage 4 chronic kidney disease, or unspecified chronic kidney disease; N17.9 Acute kidney failure, unspecified; E87.1 Hypo-osmolality and hyponatremia; N39.0 Urinary tract infection, site not specified; K57.92 Diverticulitis of intestine, part unspecified, without perforation or abscess without bleeding; M31.9 Necrotizing vasculopathy, unspecified; M62.82 Rhabdomyolysis; I25.10 Atherosclerotic heart disease of native coronary artery without angina pectoris; R79.89 Other specified abnormal findings of blood chemistry; D64.9 Anemia, unspecified; K44.9 Diaphragmatic hernia without obstruction or gangrene; E83.42 Hypomagnesemia; N18.9 Chronic kidney disease, unspecified; E78.5 Hyperlipidemia, unspecified; F32.9 Major depressive disorder, single episode, unspecified; Z88.0 Allergy status to penicillin; Z88.2 Allergy status to sulfonamides; Z91.040 Latex allergy status; Z79.2 Long term (current) use of antibiotics; Z79.82 Long term (current) use of aspirin; Z79.899 Other long term (current) drug therapy; Z68.25 Body mass index [BMI] 25.0-25.9, adult; Z85.3 Personal history of malignant neoplasm of breast; Z90.49 Acquired absence of other specified parts of digestive tract; Z90.13 Acquired absence of bilateral breasts and nipples; Z95.1 Presence of aortocoronary bypass graft; Z82.49 Family history of ischemic heart disease and other diseases of the circulatory system

== ENCOUNTER 2018-04-14 08:11 | Inpatient (IN) | payer MEDICARE, OTHER ==
[2018-04-14] VITALS (10 sets, daily range): BP systolic 119–168; BP diastolic 60–109
[~2018-04-14] VITALS: Ht 144.8 cm; Wt 54.0 kg
[~2018-04-14 08:11] MED LIST changes: +CEFUROXIME250 MG PO; +LEXAPRO 10 MG T10 M2 PO; +PROTONIX 20 MG20 M1 PO; +VITAMIN D2000 UNIT PO
[2018-04-14 08:42] LABS: HEMATOCRIT 26.7 % (37.0-47.0); MCHC 33.8 g/dL (28.0-37.0); MPV 8.1 fl. (7.2-11.1); NUCLEATED RBCS 0 /100WBC; PLATELET COUNT* 263 thou/uL (150-400); RBC 3.22 mil/uL (4.20-5.00); RDW-CV 18.5 % (10.5-14.5); WBC 10.8 thou/uL (4.0-11.0)
[2018-04-14 08:48] LABS: ANION GAP 11 mmol/L (7-16); BUN 62 mg/dL (7-18); CHLORIDE 101 mmol/L (98-107); CO2 22 mmol/L (21-32); CREATININE 1.4 mg/dL (0.6-1.3); GLUCOSE 155 mg/dL (70-99); POTASSIUM 3.8 mmol/L (3.5-5.1); SODIUM 134 mmol/L (136-145)
[2018-04-14 08:55] LABS: ALBUMIN 3.3 g/dL (3.4-5.0); ALKALINE PHOSPHATASE 66 U/L (46-116); LIPASE 94 U/L (73-393); SGOT 14 U/L (15-37); SGPT 11 U/L (30-65); TOTAL BILIRUBIN 0.4 mg/dL (<0.1-1.0); TOTAL PROTEIN 6.7 g/dL (6.4-8.2); TROPONIN-I LEVEL <0.06 ng/mL (<0.06)
[2018-04-14 09:19] LABS: BE -2.7 mmol/L (-2 to +3); HCO3 20.6 mmol/L (22.0-26.0); PCO2 30.3 mmHg (35.0-45.0); PO2 71.7 mmHg (75.0-100.0); pH 7.451 (7.340-7.450)
[2018-04-14 09:20] LABS: ABSOLUTE MONOCYTES 0.1 thou/uL (0.0-1.2); ABSOLUTE NEUTROPHILS 9.7 thou/uL (1.6-8.1); ATYPICAL LYMPHS 1 %
[2018-04-14 09:21] LABS: PLATELET ESTIMATE ADEQUATE
[2018-04-14 09:38] LABS: URINE BILIRUBIN NEGATIVE (Negative); URINE BLOOD 1+ (Negative); URINE CLARITY CLEAR; URINE COLOR YELLOW; URINE GLUCOSE-RANDOM NEGATIVE (Negative); URINE KETONES NEGATIVE (Negative); URINE LEUKOCYTES-REFLEX NEGATIVE (Negative); URINE NITRITE-REFLEX NEGATIVE (Negative); URINE PROTEIN 1+ (Negative); URINE UROBILINOGEN 0.2 E.U./dl (0.2-1.0)
[2018-04-14 09:54] LABS: CASTS None Seen /LPF (None Seen); MUCUS 0-3 Light strn/LPF (None Seen); SQUAMOUS 0-3 Few /LPF (0-3)
[2018-04-14 09:55] LABS: AMORPHOUS PHOSPHATES Many /LPF (None Seen); URINE RBC None Seen /HPF (0-2); URINE WBC-REFLEX 0-5 Rare /HPF (0-5)
[2018-04-14 13:14] LABS: HEMATOCRIT 22.2 % (37.0-47.0); HEMOGLOBIN 7.5 gm/dL (12.0-15.0); MCH 27.8 pg (26.0-34.0); MCHC 33.8 g/dL (28.0-37.0); MCV 82.4 fL (80.0-100.0); MPV 7.7 fl. (7.2-11.1); RBC 2.69 mil/uL (4.20-5.00); RDW-CV 18.4 % (10.5-14.5); WBC 11.2 thou/uL (4.0-11.0)
--- NOTE | 2018-04-14 13:25 | NUR ---
BLACK STOOL NOTED WHEN EMPTYING COMODE. PROVIDER AND PRIMARY RN AWARE.
[2018-04-14 13:35] LABS: MAGNESIUM 1.6 mg/dL (1.8-2.4); PHOSPHORUS* 3.3 mg/dL (2.5-4.9)
[2018-04-14 13:37] LABS: APTT 18.9 Seconds (25.0-31.3); PROTIME 10.2 Seconds (9.20-11.50)
[2018-04-14 21:58] LABS: ABSOLUTE LYMPHOCYTES 0.9 thou/uL (0.8-5.3); ABSOLUTE MONOCYTES 0.7 thou/uL (0.0-1.2); ABSOLUTE NEUTROPHILS 7.6 thou/uL (1.6-8.1); BASOPHILS 0.3 %; EOSINOPHILS 0.1 %; HEMATOCRIT 22.8 % (37.0-47.0); HEMOGLOBIN 7.7 gm/dL (12.0-15.0); LYMPHOCYTES 9.3 %; MCH 28.2 pg (26.0-34.0); MCHC 33.8 g/dL (28.0-37.0); MCV 83.3 fL (80.0-100.0); MONOCYTES 7.9 %; MPV 7.9 fl. (7.2-11.1); NUCLEATED RBCS 0 /100WBC; POLYS 82.4 %; RBC 2.74 mil/uL (4.20-5.00); RDW-CV 17.7 % (10.5-14.5); WBC 9.2 thou/uL (4.0-11.0)
[2018-04-14 21:59] LABS: PLATELET COUNT* 179 thou/uL (150-400)
[2018-04-14 22:04] LABS: CALCIUM 7.7 mg/dL (8.5-10.1); CREATININE 1.2 mg/dL (0.6-1.3); POTASSIUM 3.3 mmol/L (3.5-5.1)
[2018-04-15] VITALS (11 sets, daily range): BP systolic 97–150; BP diastolic 45–77
[2018-04-15 04:01] LABS: HEMATOCRIT 24.1 % (37.0-47.0); HEMOGLOBIN 8.2 gm/dL (12.0-15.0); MCH 28.5 pg (26.0-34.0); MCHC 33.8 g/dL (28.0-37.0); MCV 84.2 fL (80.0-100.0); MPV 8.1 fl. (7.2-11.1); RBC 2.86 mil/uL (4.20-5.00); RDW-CV 17.6 % (10.5-14.5); WBC 9.5 thou/uL (4.0-11.0)
[2018-04-15 04:25] LABS: ABSOLUTE BASOPHILS 0.1 thou/uL (0.0-0.2); ABSOLUTE EOSINOPHILS 0.1 thou/uL (0.0-0.7); ABSOLUTE LYMPHOCYTES 0.9 thou/uL (0.8-5.3); ABSOLUTE MONOCYTES 0.6 thou/uL (0.0-1.2); ABSOLUTE NEUTROPHILS 7.8 thou/uL (1.6-8.1); BASOPHILS 0.6 %; EOSINOPHILS 0.6 %; HEMOGLOBIN 8.1 gm/dL (12.0-15.0); LYMPHOCYTES 9.6 %; MCH 28.5 pg (26.0-34.0); MCHC 33.6 g/dL (28.0-37.0); MCV 84.8 fL (80.0-100.0); MONOCYTES 6.3 %; NUCLEATED RBCS 0 /100WBC; PLATELET COUNT* 170 thou/uL (150-400); POLYS 82.9 %; RBC 2.84 mil/uL (4.20-5.00); RDW-CV 17.9 % (10.5-14.5); WBC 9.4 thou/uL (4.0-11.0)
[2018-04-15 04:52] LABS: ALBUMIN 2.5 g/dL (3.4-5.0); CALCIUM 7.8 mg/dL (8.5-10.1); CREATININE 1.2 mg/dL (0.6-1.3); POTASSIUM 3.1 mmol/L (3.5-5.1); TOTAL BILIRUBIN 0.3 mg/dL (<0.1-1.0)
[2018-04-15 04:56] LABS: TROPONIN-I LEVEL 5.56 ng/mL (<0.06)
[2018-04-15 05:03] LABS: CALCIUM 7.9 mg/dL (8.5-10.1); CREATININE 1.2 mg/dL (0.6-1.3); POTASSIUM 3.3 mmol/L (3.5-5.1)
--- NOTE | 2018-04-15 06:11 | NUR ---
PT. PROGRESSING TOWARDS GOALS. HGB 8.2. EGD TO BE DONE THIS A.M. AT 0800. NPO SINCE MIDNIGHT. MG+ REPLACED, POTASSIUM REPLACING AT THIS TIME. CALL LIGHT IN REACH, WILL CONTINUE TO MONITOR.
[2018-04-15 08:56] LABS: HEMATOCRIT 23.7 % (37.0-47.0); MCH 28.7 pg (26.0-34.0); MCHC 33.8 g/dL (28.0-37.0); MPV 8.3 fl. (7.2-11.1); RBC 2.78 mil/uL (4.20-5.00); RDW-CV 17.7 % (10.5-14.5); WBC 9.8 thou/uL (4.0-11.0)
[2018-04-15 09:01] LABS: CALCIUM 7.9 mg/dL (8.5-10.1); CREATININE 1.2 mg/dL (0.6-1.3); POTASSIUM 4.1 mmol/L (3.5-5.1)
--- NOTE | 2018-04-15 10:46 | EKG ---
[place] [address] ELECTROCARDIOGRAM REPORT Name: ROMEL ESQUIVEL Room: [address] ADM IN M.R.#: [id number] Admission: 04/14/18 Attend Phys: Lior Freitas, Discharge: Date of : 31 Report #: [id number] THIS REPORT FOR: //name// [facility] ED Test Date: 2018-04-14 Test Time: 08:31:38 Pat Name: ROMEL ESQUIVEL Department: Room: [facility] Gender: F Shop Worker: CAROLINE : 1930 Requested By: Marcy Stewart Order Number: [id number] MD: Benjy Serna Measurements Intervals [place] Rate: 107 P: [place]: QRS: -24 QRSD: 83 T: 141 QT: 367 QTc: 490 Interpretive Statements Atrial fibrillation Borderline left axis deviation Repol abnrm suggests ischemia, anterolateral Compared to ECG 02/25/2018 04:16:17 Possible ischemia now present Sinus rhythm no longer present First degree AV block no longer present Prolonged QT interval no longer present Electronically Signed On 04-15-2018 10:46:41 CDT by Benjy Serna [email or web address] <ELECTRONICALLY SIGNED> By: Benjy Serna MD, [facility] 04/15/18 1046 Benjy Serna MD, FAC /EPI
--- NOTE | 2018-04-15 14:35 | NUR ---
PT REQUESTING TO HAVE LEADS, BP AND FINGER PROBE REMOVED. SHE STATED IT MAKES IT DIFFICULT TO GET UP THE THE COMODE AND BACK TO BED. I INFORMED THE PATIENT THAT UNFORTUNATELY SHE WILL NEED TO KEEP THEM ON WHILE SHE IS IN ICU. SHE HAS REQUESTED TO BE PLACED IN TELE. LEFT A MESSAGE WITH DR. LINARES'S STUDENT FOR STATUS CHANGE TO TELE.
[2018-04-15 18:05] LABS: HEMATOCRIT 23.8 % (37.0-47.0)
[2018-04-15 18:12] LABS: CREATININE 1.3 mg/dL (0.6-1.3); POTASSIUM 4.3 mmol/L (3.5-5.1)
--- NOTE | 2018-04-15 19:35 | NUR ---
PT PROGRESSING TOWARD GOALS. PT ABLE TO AMUBLATE TO CHAIR WITH LITTLE ASSISTANCE. PT COMPLAINS SHE IS NOT HUNGRY AND HAS EATEN VERY LITTLE. PT REQUESTING MEDICATION TO ASSIST WITH SLEEP THIS EVENING.
[2018-04-16] VITALS (8 sets, daily range): BP systolic 91–156; BP diastolic 52–87
[2018-04-16 05:09] LABS: ABSOLUTE EOSINOPHILS 0.1 thou/uL (0.0-0.7); ABSOLUTE LYMPHOCYTES 0.6 thou/uL (0.8-5.3); ABSOLUTE MONOCYTES 0.9 thou/uL (0.0-1.2); ABSOLUTE NEUTROPHILS 7.5 thou/uL (1.6-8.1); BASOPHILS 0.2 %; EOSINOPHILS 1.1 %; HEMATOCRIT 22.7 % (37.0-47.0); HEMOGLOBIN 7.5 gm/dL (12.0-15.0); LYMPHOCYTES 6.8 %; MCH 28.6 pg (26.0-34.0); MCHC 33.3 g/dL (28.0-37.0); MCV 85.8 fL (80.0-100.0); NUCLEATED RBCS 0 /100WBC; PLATELET COUNT* 146 thou/uL (150-400); POLYS 81.9 %; RBC 2.64 mil/uL (4.20-5.00); RDW-CV 17.4 % (10.5-14.5); WBC 9.1 thou/uL (4.0-11.0)
[2018-04-16 05:24] LABS: CALCIUM 7.7 mg/dL (8.5-10.1); CREATININE 1.4 mg/dL (0.6-1.3); POTASSIUM 3.8 mmol/L (3.5-5.1)
--- NOTE | 2018-04-16 05:24 | NUR ---
PT SLEPT WELL AFTER RECIEVING PO NORCO AND KLONAPIN. PT BEING TRANSFERED TO ROOM 213. REPORT GIVEN TO FELICITA PERDUE RN.
--- NOTE | 2018-04-16 07:16 | NUR ---
PT TO FLOOR APROX 0600 AND ASSUMED CARE. PT BELONGINGS IN ROOM. SR ON THE MONITOR. VITALS WNL. PT COMFORTABLE IN BED.
--- NOTE | 2018-04-16 08:02 | CON ---
[address] [address] CONSULTATION Name: ROMEL ESQUIVEL Room: [address] IN M.R.#: [id number] Admission: 04/14/18 Attend Phys: Lior Freitas, Discharge: Date of : 31 Report #: [id number] THIS REPORT FOR: //name// CC: Martina Freitas DATE OF SERVICE: 04/15/2018 ATTENDING PHYSICIAN: Lior Freitas MD REASON FOR EVALUATION: Acute diverticulitis. HISTORY OF PRESENT ILLNESS: Chart reviewed, patient examined. This is an 87-year-old whom I am familiar with having seen her last month. At that point, she presented with abdominal pain, was felt to have acute cholecystitis. She did require some resuscitation, underwent laparoscopic cholecystectomy. She does have probably urinary tract infection as well. She was treated; however, she was readmitted through the Emergency Room yesterday with complaints of vomiting, associated nausea with diarrhea, right lower quadrant pain, did have some fevers as well. Evaluation including imaging suggested evidence of acute diverticulitis involving the hepatic flexure. There is no evidence of perforation or abscess. She was empirically started on therapy with metronidazole and Cipro. She is scheduled to undergo EGD. She is quite anxious, does admit to significant pain associated with the right side. ALLERGIES: PENICILLINS, SULFA, LATEX. MEDICATIONS: Include pantoprazole, metronidazole, ciprofloxacin, p.r.n. analgesics, antiemetics. PAST MEDICAL HISTORY: The patient has known vasculopathy, coronary artery disease, hypertension. PREVIOUS SURGERIES: Coronary artery bypass grafting, cholecystectomy, appendectomy, bilateral mastectomies. SOCIAL HISTORY: Nonsmoker, no ethanol. FAMILY HISTORY: Noncontributory. REVIEW OF SYSTEMS: Somewhat limited. PHYSICAL EXAMINATION: GENERAL: Again, quite anxious, very scared. VITAL SIGNS: Temperature 98.7, pulse 85, respirations 36, blood pressure 128/56. [place] [address] CONSULTATION Name: ROMEL ESQUIVEL Room: [address]#: [id number] Admission: 04/14/18 Attend Phys: Lior Freitas, Discharge: Date of : 31 Report #: [id number] SKIN: Warm, dry, no rashes. HEENT: Otherwise, unremarkable. Nasal cannula oxygen in place. NECK: Supple. LUNGS: Diminished breath sounds, scattered crackles at the bases. HEART: Regular. I do not appreciate murmur. ABDOMEN: Soft. There are no overt peritoneal signs. It is tender, particularly on the right side. GENITOURINARY: Deferred. RECTAL: Deferred. LABORATORY DATA: Most recent labs, sodium 139, potassium 4.1, chloride 111, bicarbonate is 23, BUN and creatinine 33 and 1.2, glucose of 103. Estimated GFR of 43. CBC: White count 9.8, H and H 8.0 and 23.7, platelets 168. Blood cultures are sterile thus far. Chest x-ray initially showed no acute process. LFTs unremarkable. Albumin of 3.3. Total protein of 6.7. ABGs: PH 7.451, pCO2 of 30.3, pO2 of 71.7 on room air. Lactic acid initially was 1.1. Urinalysis 0-[address] as noted above. ASSESSMENT: Acute diverticulitis in the setting of recent hospitalization. We will continue broad spectrum therapy. Await results pending studies. We will have to monitor expectantly. Certainly at risk for nosocomial related infectious complications. <ELECTRONICALLY SIGNED> By: Paulie Caruso MD 04/16/18 0802 1027 1327Josebucky Caruso MD /nt
--- NOTE | 2018-04-16 10:01 | NUR ---
ASSUMED CARE OF PT THIS AM AROUND 07- SENIOR QA ENGINEER IN PLACE ORDERED, TRACING SR- UPON ASSESSMENT PT NOTED TO BE RESTING IN BED- PT A&O X4, FORGETFULL-NOTED ANXIETY AT TIMES- CONTINET OF BOWEL AND BLADDER- LCTA, EXPIRATORY WHEEZE NOTED TO BASES- OCCASSIONAL NON-PRODUCTIVE COUGH NOTED- ABDOMEN SOFT/ROUND/NON-TENDER, BS X4 QUADS- PT REPORTED TO HAVE HAD BM EARLY AM, NO VISIBLE SIGNS OF BLEEDING REPORTED- LEFT SUB-CLAV TRIPLE LUMEN PICC NNOTED INTACT WITH IVF INFUSSING PRESCIBED, DRESSING C/D/I WITH NO S/S INFECTION-IV ABT GIVEN THIS AM WITH NO ADVERSE REACTIONS NOTED- PT DENIES ANY C/O PAIN/DISCOMFORT- POOR PO INTAKE NOTED-CALL LIGHT AND PERSONAL BELONGINGS WITH IN REACH-HOURLY ROUNDS IN PLACE R/T SAFETY/NEEDS- CHAIR/BED ALARM IN PLACE R/T SAFETY/NEEDS- ALL NEEDS MET AT THIS TIME-WCTM
--- NOTE | 2018-04-16 12:44 | EKG ---
[place] [address] ELECTROCARDIOGRAM REPORT Name: ROMEL ESQUIVEL Room: [address] ADM IN .R.#: [id number] Admission: 04/14/18 Attend Phys: Lior Freitas, Discharge: Date of : 31 Report #: [id number] THIS REPORT FOR: //name// [facility] ED Test Date: 2018-04-14 Test Time: 11:56:02 Pat Name: ROMEL ESQUIVEL Department: Room: [facility] Gender: F Stiff Neck Loader: MS : 1930 Requested By: Marcy Stewart Order Number: [id number] MD: Benjy Serna Measurements Intervals [place] Rate: 88 P: 84 [place]: 190 QRS: -24 QRSD: 80 T: -23 QT: 457 QTc: 553 Interpretive Statements Sinus rhythm Borderline left axis deviation RSR' in V1 or V2, probably normal variant Borderline repolarization abnormality Prolonged QT interval Baseline wander in lead(s) V6 Compared to ECG 04/14/2018 08:31:38 RSR' in V1 or V2 now present Prolonged QT interval now present Atrial fibrillation no longer present Possible ischemia no longer present Electronically Signed On 04-16-2018 12:44:39 CDT by Benjy Serna [email or web address] <ELECTRONICALLY SIGNED> By: Benjy Serna MD, [facility] 04/16/18 1244 1156 1156 Benjy Serna MD, [facility] /EPI
--- NOTE | 2018-04-16 12:47 | EKG ---
[place] [address] ELECTROCARDIOGRAM REPORT Name: ROMEL ESQUIVEL Room: [address] ADM IN .R.#: [id number] Admission: 04/14/18 Attend Phys: Lior Freitas, Discharge: Date of : 31 Report #: [id number] THIS REPORT FOR: //name// [facility] ED Test Date: 2018-04-14 Test Time: 14:20:10 Pat Name: ROMEL ESQUIVEL Department: Room: [facility] Gender: F Stenographer Print Shop: NICK : 1930 Requested By: Marcy Stewart Order Number: [id number] MD: Benjy Serna Measurements Intervals [place] Rate: 102 P: 142 [place]: 187 QRS: -16 QRSD: 77 T: 142 QT: 371 QTc: 484 Interpretive Statements Sinus tachycardia Atrial premature complex Borderline left axis deviation Repol abnrm, severe global ischemia (LM/MVD) Compared to ECG 04/14/2018 08:31:38 Atrial premature complex(es) now present anterolateral and high lateral st depression more prominent Electronically Signed On 04-16-2018 12:47:30 CDT by Benjy Serna [email or web address] <ELECTRONICALLY SIGNED> By: Benjy Serna MD, FAC 04/16/18 1247 1420 1420 Benjy Serna MD, FAC /EPI
--- NOTE | 2018-04-16 12:54 | EKG ---
[place] [address] ELECTROCARDIOGRAM REPORT Name: ROMEL ESQUIVEL Room: [address] ADM IN M.R.#: [id number] Admission: 04/14/18 Attend Phys: Lior Freitas, Discharge: Date of : 31 Report #: [id number] THIS REPORT FOR: //name// [facility] Test Date: 2018-04-15 Test Time: 11:36:44 Pat Name: ROMEL ESQUIVEL Department: Room: [facility] Gender: F Centrifugal Separator: FRITZ : 1930 Requested By: Quan Ramires Order Number: [id number] Reading MD: Benjy Serna Measurements Intervals [place] Rate: 90 P: 104 [place]: 204 QRS: -23 QRSD: 93 T: 250 QT: 384 QTc: 470 Interpretive Statements Sinus rhythm Borderline left axis deviation Nonspecific repol abnormality, diffuse leads Baseline wander in lead(s) I,II,aVR Compared to ECG 04/14/2018 08:31:38 Atrial fibrillation no longer present Possible ischemia no longer present Electronically Signed On 04-16-2018 12:53:54 CDT by Benjy Serna [email or web address] <ELECTRONICALLY SIGNED> By: Benjy Serna MD, [facility] 04/16/18 1253 1136 1136 Benjy Serna MD, [facility] /EPI
--- NOTE | 2018-04-16 13:21 | 2DMMODE ---
[place] [address] 2 D/M-MODE ECHOCARDIOGRAM Name: ROMEL ESQUIVEL Room: [address] IN [facility]#: [id number] Admission: 04/14/18 Attend Phys: Lior Saldaña Discharge: Date of : 31 Date of Service: 04/16/18 1320 Report #: [id number] THIS REPORT FOR: //name// APPROVED REPORT Study performed: 04/16/2018 10:50:42 EXAM: Comprehensive 2D, Doppler, and color-flow Echocardiogram Patient Location: In-Patient Room #: formerly [facility] Status: routine BSA: 1.45 HR: 97 bpm BP: 143/66 mmHg Rhythm: NSR Other Information Study Quality: Good Indications Acute MO 2D Dimensions LVEF(%): 66.25 (>50%) IVSd: 11.69 (7-11mm) LVOT Diam: 16.67 (18-24mm) LVDd: 40.95 mm PWd: 10.40 (7-11mm) Ascending Ao: 26.16 (22-36mm) LVDs: 26.16 (25-40mm) Aortic Root: 25.81 mm Mireles's LVEF: 66.25 % Volumes Left Atrial Volume (Systole) LA ESV Index: 58.00 mL/m2 Aortic Valve AoV Peak Martinez.: 1.60 m/s AO Peak Gr.: 10.25 mmHg LVOT Max P.99 mmHg AO Mean Gr.: 5.64 mmHg LVOT Mean P.06 mmHg LVOT Max V: 0.71 m/s AO V2 VTI: 29.61 cm LVOT Mean V: 0.48 m/s DANNIE (VTI): 1.05 cm2 LVOT V1 VTI: 14.28 cm AI Trimble: 2.65 m/s2 AI PHT: 382.97 [place] [address] 2 D/M-MODE ECHOCARDIOGRAM Name: ROMEL ESQUIVEL Room: [address] IN .R.#: [id number] Admission: 04/14/18 Attend Phys: Lior Saldaña Discharge: Date of : 31 Date of Service: 04/16/18 1320 Report #: [id number] Mitral Valve E/A Ratio: 1.37 MV Decel. Time: 126.39 ms MV E Max Martinez.: 1.46 m/s MV PHT: 36.65 ms MVA (PHT): 6.00 cm2 TDI E/Lateral E': 20.86 Lateral E' Martinez.: 0.07 m/s Pulmonary Valve PV Peak Martinez.: 1.03 m/s PV Peak Gr.: 4.27 mmHg Tricuspid Valve RAP Estimate: 5.00 mmHg TR Peak Gr.: 39.77 mmHg RVSP: 44.77 mmHg PA Pressure: 44.77 mmHg Left Ventricle The left ventricle is normal size. There is normal LV segmental wall motion. There is normal left ventricular wall thickness. Left ventricular systolic function is normal. LVEF is 50-55%. Transmitral Doppler flow pattern suggests impaired LV relaxation. Right Ventricle The right ventricle is normal size. The right ventricular systolic function is normal. Atria Left atrium is moderately dilated. Right atrium is moderately dilated. Aortic Valve Moderate aortic valve sclerosis. Mild aortic regurgitation. Mild aortic stenosis. Mitral Valve The mitral valve is normal in structure. Mild mitral regurgitation. No evidence of mitral valve stenosis. Tricuspid Valve The tricuspid valve is normal in structure. Moderate tricuspid regurgitation. Moderate pulmonary [place] [address] 2 D/M-MODE ECHOCARDIOGRAM Name: ROMEL ESQUIVEL Room: [address] IN [facility]#: [id number] Admission: 04/14/18 Attend Phys: Lior Saldaña Discharge: Date of : 31 Date of Service: 04/16/18 1320 Report #: [id number] The pulmonary valve is normal in structure. Trace pulmonic regurgitation. Great Vessels The aortic root is normal in size. IVC is normal in size and collapses with >50% inspiration Pericardium There is no pericardial effusion. <Conclusion> The left ventricle is normal size. There is normal left ventricular wall thickness. Left ventricular systolic function is normal. LVEF is 50-55%. Transmitral Doppler flow pattern suggests impaired LV relaxation. Left atrium is moderately dilated. Right atrium is moderately dilated. Moderate aortic valve sclerosis. Mild aortic regurgitation. Mild aortic stenosis. Mild mitral regurgitation. Moderate tricuspid regurgitation. Moderate pulmonary hypertension. Trace pulmonic regurgitation. <ELECTRONICALLY SIGNED> By: Kraig Wiseman MD, FACC 04/16/18 1320 19 19 Kraig Wiseman MD, FACC /INF
--- NOTE | 2018-04-16 16:25 | NUR ---
PT CURRENTLY RESTING IN BED- JOURNEYMAN PRESS OPERATOR IN PLACE ORDERED, TRACING SR- LEFT CHEST PICC IN PLACE, IVF INFUSSING PRESCRIBED- IV CIPRO NOTED TO BE D/C'D THIS SHIFT PER THIS SHIFT WITH CEFEPIME BID IV ORDERED AND GIVEN- PT NOTED TO VERY ANXIOUIS AT TIMES, INDECISIVE WITH DECISSION MAKING AND MOSER AT TIMES- PT C/O X1 OF FEELLING SLIGHT DISCOMFORT TO CHEST WITH HARD TIME BREATHING- VS NOTED TO BE 156/87 96-HR 97.6 AND 97.6 TEMP- THIS NURSE TRY TO GIVE EDUCATION TO PT ON ANXIETY, WHEN PT SISTER STATES "HOW ARE YOU GOING TO JUMP TO THAT CONCLUSION, I'M A NURSE TO AND YOU CAN NOT JUST AUTOMATICALLY GO THERE"- UPDATED ON PT ASSESSMENT FINDINGS ALONG WITH COMPLAINTS- ORDERS NOTED FOR D-DIMMER AND BLE US DOPPLER- D-DIMER NOTED TO BE WNL OF 0.43 AND US NEGATIVE FOR DVT- ECHO COMPLETED THIS SHIFT, RESULTS NOTE 50-55% LVEF- PT REPORTING TO OTHER STAFF THAT 2 MEN LAST NIGHT TOOK HER TO THE SMOKE ROOM, POSSIBLE HALLUCINATIONS, CONFUSSION NOTED- GI HERE TO SEE, COLONOSCOPY ON HOLD RIGHT NOW WITH PLANS OP IN 2 WEEKS-PT OFFERED TO GET UP TO BED SIDE RECLINER, BUT REFUSSES- POOR PO INTAKE NOTED WITH MEALS, ALTERNATIVES OFFERED AND REFUSSED PER PT- CALL LIGHT AND PERSONAL BELONGINGS WITH IN REACH- BED ALARM IN PLACE AND WORKING FOR PT SAFETY- ALL NEEDS MET AT THIS TIME-[facility]
[2018-04-17 00:03] VITALS: BP 147/65
[2018-04-17 04:00] VITALS: BP 144/64
[2018-04-17 04:50] LABS: HEMATOCRIT 23.7 % (37.0-47.0); HEMOGLOBIN 7.9 gm/dL (12.0-15.0); MCH 28.9 pg (26.0-34.0); MCHC 33.2 g/dL (28.0-37.0); MPV 8.6 fl. (7.2-11.1); NUCLEATED RBCS 0 /100WBC; PLATELET COUNT* 163 thou/uL (150-400); RBC 2.72 mil/uL (4.20-5.00); RDW-CV 18.5 % (10.5-14.5); WBC 9.7 thou/uL (4.0-11.0)
[2018-04-17 05:13] LABS: ALBUMIN 2.6 g/dL (3.4-5.0); CALCIUM 8.1 mg/dL (8.5-10.1); CREATININE 1.3 mg/dL (0.6-1.3); TOTAL BILIRUBIN 0.6 mg/dL (<0.1-1.0); TOTAL PROTEIN 5.8 g/dL (6.4-8.2)
[2018-04-17 06:01] LABS: ABSOLUTE BASOPHILS 0.1 thou/uL (0.0-0.2); ABSOLUTE LYMPHOCYTES 0.4 thou/uL (0.8-5.3); ABSOLUTE MONOCYTES 0.7 thou/uL (0.0-1.2); ABSOLUTE NEUTROPHILS 8.5 thou/uL (1.6-8.1); PLATELET ESTIMATE ADEQUATE
[2018-04-17 06:02] LABS: ANISOCYTOSIS 1+; POIKILOCYTOSIS 1+
--- NOTE | 2018-04-17 06:05 | NUR ---
PT AAOX3 RESP REG AND UNALBORED SKIN WITH NO ACUTE DISTRESS NOTED. PT DOES HOWEVER BECOME SOB WTH EXERTION. O2 2L BNC INTACT. PTS LEFT SUBCLAVIAN IV IS LEAKING AND NOT ABLE TO USE AT THIS TIME. DRESSING CHANGED. VSS AND NO ACUTE CHANGES DURING THIS SHIFT. WILL CONTINUE TO MONITOR. TELEMETRY PACK INTACT WITH ALARMS SET.
[2018-04-17 07:30] VITALS: BP 148/77
[2018-04-17 13:04] VITALS: BP 160/87
--- NOTE | 2018-04-17 15:51 | NUR ---
Pt known to this CM from previous hospital stay. Pt A&O, maybe a little confused when CM asked orientation questions. Pt resides at [facility]. Normally independent, no DME. Hx of [facility]. No hx of SNF. Strong support sx. Pt would like to go to [facility] [place], wants to go to [facility]. CM to fax referral to [facility]. Following.
[2018-04-17 16:30] VITALS: BP 146/71
--- NOTE | 2018-04-17 19:00 | NUR ---
PATIENT PROGRESSING TOWARDS GOALS. IV SALINE LOCKED. SHE IS TOLERATING HER DIET WELL WITHOUT NAUSEA OR VOMIITNG. UP WITH ASSIST X1 TO BEDSIDE COMMODE. GAIT UNSTEADY. PAIN CONTROLLED WITH PRN PAIN MEDICATION. REPOSITIONED FOR COMFORT. SHE WAS UP IN THE CHAIR FOR MEALS. BED ALARM ON. CALL LIGHT WITHIN REACH. HOURLY ROUNDING CHARTED. PLANNING FOR DC TO SNF TOMORROW IF STABLE. WILL CONTINUE TO MONITOR.
[2018-04-18 00:31] VITALS: BP 124/73
--- NOTE | 2018-04-18 05:05 | NUR ---
PT AAOX3 BUT IS FORGETFUL. PT WAS UPSET AT BEGINNING OF SHIFT STATIGN THAT HER BROTHER HAD BEEN ADMITTED TO THE HOSPITAL [place] ANOTHER CITY. TELEMETRY PACK INTACT WITH ALARMS SET. O2 2L BNC INTACT. PT IS GETING UP EASIER TODAY WITH NO DISTRESS NOTED. VSS AND NO ACUTE CHANGES DURIGN SHIFT. PT STATED SHE HOPES TO GO TO REHAB TODAY. WILL CONTINUE TO MONITOR
[2018-04-18 05:32] LABS: ABSOLUTE EOSINOPHILS 0.2 thou/uL (0.0-0.7); ABSOLUTE LYMPHOCYTES 0.6 thou/uL (0.8-5.3); ABSOLUTE MONOCYTES 0.8 thou/uL (0.0-1.2); ABSOLUTE NEUTROPHILS 6.2 thou/uL (1.6-8.1); BASOPHILS 0.4 %; EOSINOPHILS 2.5 %; HEMATOCRIT 20.1 % (37.0-47.0); LYMPHOCYTES 7.4 %; MCH 28.9 pg (26.0-34.0); MCHC 33.1 g/dL (28.0-37.0); MCV 87.3 fL (80.0-100.0); MONOCYTES 10.3 %; MPV 8.2 fl. (7.2-11.1); NUCLEATED RBCS 0 /100WBC; PLATELET COUNT* 160 thou/uL (150-400); POLYS 79.4 %; RDW-CV 18.7 % (10.5-14.5); WBC 7.8 thou/uL (4.0-11.0)
[2018-04-18 05:39] LABS: HEMOGLOBIN 6.7 gm/dL (12.0-15.0)
[2018-04-18 06:12] LABS: ANION GAP 8 mmol/L (7-16); BUN 23 mg/dL (7-18); CALCIUM 7.9 mg/dL (8.5-10.1); CHLORIDE 109 mmol/L (98-107); CO2 18 mmol/L (21-32); CREATININE 1.4 mg/dL (0.6-1.3); GLUCOSE 102 mg/dL (70-99); SODIUM 135 mmol/L (136-145)
[2018-04-18 06:13] LABS: NT-PRO BRAIN NAT PEPTIDE > 35000 pg/mL (<300)
[2018-04-18 07:30] VITALS: BP 136/60
--- NOTE | 2018-04-18 08:54 | NUR ---
Nutrition: Pt assessed for supplement order. Heart Healthy diet, supplements requested bid. Wt loss of ~7-10# in 3 months. Usual wt was ~130#, current wt is 120#. Admitted with N/V, abd pain. H/o gallstones, diverticulitis, CAD, CKD, HTN, UTI. Pt is tolerating diet well, no N/V today, feeling better. RD ordered Ensure Enlive b.i.d. for added kcals/protein. Consider Mild risk at this time. GOALS: >75% intake of meals/supplements, no wt loss from 119#. Follow up 04/25/18.
[2018-04-18 10:01] VITALS: BP 130/87; BP 132/78; BP 141/73; BP 153/80
[2018-04-18 11:52] VITALS: BP 141/73
--- NOTE | 2018-04-18 13:00 | NUR ---
RECEIVED PT CARE 0700. SHE IS ALERT AND ORIENTED X4, FORGETFUL AT TIMES. VSS. 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 O2 SAT 99% ON 2L NC. TITRATED TO ROOM AIR. UP WITH ASSIST X1 TO CHAIR/BEDSIDE COMMODE. AM ASSESSMENT CHARTED. MEDS PER OCT. SHE C/O BACK PAIN AND RLQ PAIN. PRN PAIN MEDICATION GIVEN WITH GOOD RELIEF. HGB 6.7. 1 UNIT PACKED RBC'S TRANSFUSED. VITAL SIGNS STABLE. BED/CHAIR ALARM ON. WILL CONTINUE TO MONITOR.
[2018-04-18 16:08] VITALS: BP 156/80
[2018-04-18 18:17] LABS: HEMATOCRIT 24.7 % (37.0-47.0); HEMOGLOBIN 8.5 gm/dL (12.0-15.0); MCH 29.5 pg (26.0-34.0); MCHC 34.4 g/dL (28.0-37.0); MCV 85.9 fL (80.0-100.0); MPV 8.3 fl. (7.2-11.1); RBC 2.87 mil/uL (4.20-5.00); RDW-CV 17.5 % (10.5-14.5); WBC 9.9 thou/uL (4.0-11.0)
[2018-04-19] VITALS: BP 153/84
--- NOTE | 2018-04-19 02:33 | NUR ---
ASSUMED CARE OF PT AT 1900. PT IS ALERT AND ORIENTED. VSS. PERRLA. PT REPORTS SOME BACK PAIN. PT BECAME SLIGHTLY CONFUSED AND A LITTLE ANGRY RIGHT BEFORE SHE FELL ASLEEP. PT IS IN SINUS RYTHM ON THE TELEMETRY. PT IS RESTING COMFORTABLY IN BED. RESPIRATIONS ARE EVEN AND NONLABORED. WILL CONTINUE TO MONITOR PT.
[2018-04-19 04:00] VITALS: BP 145/78
[2018-04-19 05:05] LABS: HEMATOCRIT 26.7 % (37.0-47.0); HEMOGLOBIN 9.3 gm/dL (12.0-15.0); MCH 29.4 pg (26.0-34.0); MCHC 34.7 g/dL (28.0-37.0); MCV 84.7 fL (80.0-100.0); MPV 8.3 fl. (7.2-11.1); RBC 3.15 mil/uL (4.20-5.00); RDW-CV 17.2 % (10.5-14.5); WBC 8.7 thou/uL (4.0-11.0)
[2018-04-19 05:31] LABS: ALBUMIN 2.6 g/dL (3.4-5.0); CALCIUM 8.3 mg/dL (8.5-10.1); CREATININE 1.5 mg/dL (0.6-1.3); POTASSIUM 3.8 mmol/L (3.5-5.1); TOTAL BILIRUBIN 0.5 mg/dL (<0.1-1.0); TOTAL PROTEIN 5.7 g/dL (6.4-8.2)
--- NOTE | 2018-04-19 09:14 | CON ---
[address] [address] CONSULTATION Name: ROMEL ESQUIVEL Room: [address] IN .R.#: [id number] Admission: 04/14/18 Attend Phys: Lior Freitas, Discharge: Date of : 31 Report #: [id number] THIS REPORT FOR: //name// CC: Martina Freitas DATE OF SERVICE: 04/15/2018 CHIEF COMPLAINT: GI bleeding, abnormal troponin and ECG. HISTORY OF PRESENT ILLNESS: The patient is an 87-year-old female who had a laparoscopic cholecystectomy for cholelithiasis and on 02/27/2018. She had done well relatively until a few days ago when she started to have lower quadrant pain and presented to the Emergency Department with acute diverticulitis, nausea and vomiting and fever. At that time, her hemoglobin was 9.0. She was admitted for acute diverticulitis and her hemoglobin dropped to 7.5. She denied having chest pain or pressure, but somewhere along the line serial cardiac troponin levels were checked and her troponin I was 5.56 this morning. A second set is pending. Upon my arrival, the patient's ECG shows a sinus rhythm with diffuse T-wave inversions, but no ST segment elevation. She remains chest pain free. She is alert, oriented. She is now in the ICU with stable hemodynamics. She had an EGD, which revealed a hiatal hernia with multiple Rosendo ulcers and she has been on Protonix IV. The plan is for her to have a colonoscopy later in the hospitalization because of diverticula noted on the CT scan of the abdomen. From a cardiovascular standpoint, she has a history of prior bypass surgery remotely when she is followed by Dr. Gage fairly regularly and has had negative stress test in the past. She has hypertension, hyperlipidemia, frequent urinary tract infections and known history of diverticulitis and known history of chronic anemia. ALLERGIES: SHE HAS ALLERGIES TO PENICILLIN AND SULFA. HOME MEDICATIONS: Include pravastatin 20 mg daily, baby aspirin, Protonix, Bystolic 5 mg daily and escitalopram 10 mg daily. PAST SURGICAL HISTORY: Prior in addition to bypass surgery she has also had breast cancer surgery and the aforementioned cholecystectomy. REVIEW OF SYSTEMS: GASTROINTESTINAL: No nausea or vomiting at this time. No abdominal pain. GENITOURINARY: No dysuria or hematuria. CARDIOVASCULAR: No chest pain or pressure. No neck or jaw discomfort. [place] [address] CONSULTATION Name: ROMEL ESQUIVEL Room: [address]#: [id number] Admission: 04/14/18 Attend Phys: Lior Freitas, Discharge: Date of : 31 Report #: [id number] PULMONARY: No shortness of breath. HEMATOLOGIC: Positive anemia. No bleeding disorders. RENAL: No history of kidney failure. GENERAL: No fevers or chills. SKIN: No rashes. NEUROLOGIC: Denies any headaches, blurry vision, slurred speech, numbness or weakness. PHYSICAL EXAMINATION: VITAL SIGNS: Blood pressure is 128/56, pulse is 85, respiratory rate 18, O2 sats 92% on 3 liters nasal cannula. GENERAL: This is an elderly female. She is alert, oriented, no apparent distress. HEENT: Eyes: EOMs intact. No facial asymmetry. Sclerae are anicteric. There is some pallor in her sclerae. NECK: Supple. No jugular venous distention. CARDIOVASCULAR: Regular, I cannot hear a murmur. There is no rub or gallop. LUNGS: Clear to auscultation. ABDOMEN: Soft, diffusely tender. EXTREMITIES: There is no peripheral edema. There is some peripheral wasting. LABORATORY DATA: Hemoglobin is 8.0, white blood count is 9.8, platelet count 168,000. INR is 1.0. Chest x-ray, 04/14/2018, demonstrates mild cardiomegaly with slight vascular prominence. IMPRESSION: 1. Abnormal troponin. She has an abnormally elevated troponin level secondary to demand ischemia most likely. Her blood pressures are currently stable in the 120s/50s and she remains in a sinus rhythm. Her ECG is abnormal. However, she has no clinical symptoms for angina and this does not seem to be an acute thrombotic event, so I would continue with the conservative approach. 2. Anemia. I would like to keep her hemoglobin level greater than 9. 3. Coronary artery disease status post prior coronary artery bypass graft. We will check an echocardiogram to assess left ventricular function and compared to prior studies in 2017 her echocardiogram showed grossly normal left ventricular function. 4. Acute diverticulitis and hiatal hernia with Rosendo ulcers. She is on aggressive proton pump inhibitor therapy and colonoscopy is likely to be performed. <ELECTRONICALLY SIGNED> By: Quan Ramires MD, FACC 04/19/18 0914 1126 [id number] Ramires MD, FACC /nt
[2018-04-19 11:59] VITALS: BP 150/69
--- NOTE | 2018-04-19 11:59 | NUR ---
Pt discharging to acute rehab today. Faxed dc orders. Sister aware of disposition.
[2018-04-19 12:02] VITALS: BP 150/69
[2018-04-19 12:17] VITALS: BP 155/72
[2018-04-19] MEDS ORDERED: IRON325 PO (13:16)
[2018-04-19] MEDS ORDERED: FLAGYL500 MG PO (13:17)
[2018-04-19] MEDS ORDERED: MIRALAX17 GM PO (13:20)
[2018-04-19] MEDS ORDERED: CEFDINIR300 MG PO (13:22)
[2018-04-19] MEDS ORDERED: HYDROCHLOROTHIA25 M2 PO (13:25)
--- NOTE | 2018-04-19 14:50 | NUR ---
ASSUMED CARE THIS AM, A/O, VSS, NO DISTRESS NOTED, SEE ASSESSMENT FOR DETAILS. ORDERS RECEIVED FOR DISCHARGE TO ACUTE REHAB, REPORT GIVEN TO VIRI, PERSONAL EFFECTS GATHERED, ACCOUNTED FOR, IN COMPANY OF PATIENT, TRANSPORTED VIA WHEELCHAIR TO [facility] IN STABLE CONDITION.
--- NOTE | 2018-04-20 07:55 | CON ---
[address] [address] CONSULTATION Name: ROMEL ESQUIVEL Room: [address] IN M.R.#: [id number] Admission: 04/14/18 Attend Phys: Lior Freitas, Discharge: 04/19/18 Date of : 31 Report #: [id number] THIS REPORT FOR: //name// CC: Martina Vásquez MD [facility] Lior Freitas MD DATE OF SERVICE: 04/14/2018 REFERRING PHYSICIAN: Lior Freitas MD REASON FOR CONSULTATION: Hematemesis. IMPRESSION: 1. Acute anemia with associated melena and hematemesis - suspect upper gastrointestinal bleed. 2. Right upper quadrant pain with abnormal CAT scan of the abdomen and pelvis revealing some thickening of the colon to the level of hepatic flexure with pericolonic stranding - evaluate for diverticulitis versus colitis versus less likely tumor. 3. History of diverticulitis in the past involving the descending and sigmoid colon. 4. Coronary artery disease with previous bypass surgery for the same. 5. Personal history of breast cancer with previous mastectomies. 6. Mild dementia. RECOMMENDATIONS: 1. Agree with the patient being admitted to ICU. 2. N.p.o. except for ice chips for now. 3. We will begin the patient on Protonix 40 mg IV q. 12 hours. 4. Agree with IV antibiotics for possible diverticulitis. 5. We will proceed with upper endoscopy tomorrow either tomorrow late morning or early afternoon or earlier if she should develop any overt hematemesis. 6. We would hold all anticoagulants nonsteroidals, and aspirin for now. I have discussed the plans with the patient as well and she is agreeable to the same. HISTORY OF PRESENT ILLNESS: The patient is a pleasant 87-year-old white female who had been having some problem with rather severe abdominal pain associated with nausea, vomiting, and black tarry stools. She is recently recovered from recent laparoscopic cholecystectomy for gallbladder disease, had been doing well until she came to the emergency room. She has a known history of diverticular disease in the past and has been treated for the [place] [address] CONSULTATION Name: ROMEL ESQUIVEL Room: [address]#: [id number] Admission: 04/14/18 Attend Phys: Lior Freitas, Discharge: 04/19/18 Date of : 31 Report #: [id number] complaints of any dysphagia, odynophagia, postprandial pain or any other major issues. She is very emotional at this time and her history is not all that well received. Most of the history is obtained from the patient's emergency room visit. She also received some promethazine in the emergency room because of problems with nausea. She is admitted to the hospital for further treatment. ALLERGIES: LATEX, PENICILLIN, SULFA. MEDICATIONS: Lexapro, vitamin D3, Pravachol, aspirin, pantoprazole 40 mg once daily and Bystolic. She may or may not have been taking naproxen, but she does not recall. PAST MEDICAL AND SURGICAL HISTORY: Remarkable for previous coronary artery disease with previous open heart surgery for the same. She has had bilateral breast cancer, for which she has had surgeries for the same. Appendectomy. She has underlying hyperlipidemia, diabetes, chronic reflux, history of hiatal hernia. She has had a broken arm in the past. SOCIAL HISTORY: The patient does not smoke or drink. FAMILY HISTORY: Negative. PHYSICAL EXAMINATION: GENERAL: Pleasant, but very anxious 87-year-old white female who is awake and alert. CARDIOPULMONARY: Revealed a regular rate and rhythm. LUNGS: Clear. ABDOMEN: Soft. She is mildly tender in lower quadrants. No rebound or guarding noted. LABORATORY TESTS: From admission revealed a white count of 10.8, hemoglobin 9.0; platelet count 263,000, MCV is 83, RDW 18.5. Her sodium is 134, potassium 3.8, chloride 101, bicarbonate is 22. Her BUN is 62, creatinine 1.4. Her total bilirubin is 0.4, alkaline phosphatase 66, AST is 14, ALT is 11. Her albumin is 3.3. Her INR is 1.0. Her troponin is less than 0.6. Within 6 hours, the patient's hemoglobin dropped down to 7.5 with some hemodynamic instability. She is admitted to the ICU for further care. The patient did undergo a CT scan of the abdomen and pelvis with IV contrast, which revealed short segment of mural thickening and pericolonic soft tissue stranding at the level of hepatic flexure, which could represent diverticular disease. In comparison to previous CT scan done in February, this was not present and likely represents an area of diverticulosis, as the patient has had previous bouts of the same. [address] [address] CONSULTATION Name: ROMEL ESQUIVEL Room: [address] [facility] IN M.R.#: [id number] Admission: 04/14/18 Attend Phys: Lior TimothyAnjali Samuelrigo, Discharge: 04/19/18 Date of : 31 Report #: [id number] DISCUSSION: At the present time, the patient has some issues with GI bleed. We will proceed with upper endoscopy today or tomorrow depending on how she is doing and make further recommendations thereafter. Discussed the plans with the patient as well and she is agreeable to the same. With regards to the pericolonic stranding at level of hepatic flexure, we will determine whether or not we will treat her empirically for diverticulitis and whether or not she is a candidate for endoscopic evaluation of her lower GI tract even during his hospital stay or more likely as an outpatient testing and otherwise. <ELECTRONICALLY SIGNED> By: Abdiel Nelson DO 04/20/18 0755 0500 [id number] Nelson DO /nt
== END 2018-04-19 14:53 | DRG 871 ==
LOC: M.ERS 08:11 → M.TBA-ER 11:03 → M.ERS 11:03 → M.TBA-ER 11:52 → M.ERS 11:52 → M.2W 13:23 → M.ICU 13:23 → M.TBA-ER 13:23 → M.ICU 15:20 → M.2W 04-16 06:00
PROVIDERS: Internal Medicine; Internal Medicine Gastroenterology; Personal Emergency Response Attendant; ADMIT Family Medicine
DX: A41.9 Sepsis, unspecified organism (principal); G93.40 Encephalopathy, unspecified; I21.4 Non-ST elevation (NSTEMI) myocardial infarction; R57.1 Hypovolemic shock; K25.4 Chronic or unspecified gastric ulcer with hemorrhage; K57.33 Diverticulitis of large intestine without perforation or abscess with bleeding; N39.0 Urinary tract infection, site not specified; N17.9 Acute kidney failure, unspecified; K92.1 Melena; M31.9 Necrotizing vasculopathy, unspecified; I13.0 Hypertensive heart and chronic kidney disease with heart failure and stage 1 through stage 4 chronic kidney disease, or unspecified chronic kidney disease; I25.10 Atherosclerotic heart disease of native coronary artery without angina pectoris; K21.9 Gastro-esophageal reflux disease without esophagitis; I45.81 Long QT syndrome; E78.5 Hyperlipidemia, unspecified; D64.9 Anemia, unspecified; K44.9 Diaphragmatic hernia without obstruction or gangrene; F03.90 Unspecified dementia, unspecified severity, without behavioral disturbance, psychotic disturbance, mood disturbance, and anxiety; N18.9 Chronic kidney disease, unspecified; E11.22 Type 2 diabetes mellitus with diabetic chronic kidney disease; E87.6 Hypokalemia; E53.8 Deficiency of other specified B group vitamins; I50.9 Heart failure, unspecified; Z85.3 Personal history of malignant neoplasm of breast; Z90.13 Acquired absence of bilateral breasts and nipples; Z90.49 Acquired absence of other specified parts of digestive tract; Z87.01 Personal history of pneumonia (recurrent); Z79.899 Other long term (current) drug therapy; Z79.82 Long term (current) use of aspirin; Z88.0 Allergy status to penicillin; Z88.2 Allergy status to sulfonamides; Z91.040 Latex allergy status; Z95.1 Presence of aortocoronary bypass graft; Z87.440 Personal history of urinary (tract) infections; Z80.0 Family history of malignant neoplasm of digestive organs

== ENCOUNTER 2018-04-19 12:14 | Inpatient (IN) | payer MEDICARE, OTHER ==
[~2018-04-19] VITALS: Ht 149.9 cm; Wt 58.2 kg
[2018-04-19] MEDS ORDERED: IRON325 PO (13:16)
[2018-04-19] MEDS ORDERED: FLAGYL500 MG PO ×2 (13:17)
[2018-04-19] MEDS ORDERED: MIRALAX17 GM PO ×2 (13:20)
[2018-04-19] MEDS ORDERED: CEFDINIR300 MG PO ×2 (13:22)
[2018-04-19] MEDS ORDERED: HYDROCHLOROTHIA25 M2 PO ×2 (13:25)
[2018-04-19 19:45] VITALS: BP 147/77
[2018-04-20 03:58] LABS: HEMOGLOBIN 9.2 gm/dL (12.0-15.0); MCHC 34.2 g/dL (28.0-37.0); MCV 84.7 fL (80.0-100.0); MPV 7.7 fl. (7.2-11.1); RBC 3.18 mil/uL (4.20-5.00); RDW-CV 17.9 % (10.5-14.5); WBC 7.8 thou/uL (4.0-11.0)
[2018-04-20 04:19] LABS: CREATININE 1.4 mg/dL (0.6-1.3); POTASSIUM 3.4 mmol/L (3.5-5.1)
[2018-04-20 20:00] VITALS: BP 143/86
[2018-04-21 04:49] LABS: CALCIUM 8.2 mg/dL (8.5-10.1); CREATININE 1.4 mg/dL (0.6-1.3); POTASSIUM 3.5 mmol/L (3.5-5.1)
[2018-04-21 08:07] VITALS: BP 156/83
[2018-04-21 20:00] VITALS: BP 136/65
[2018-04-22 07:30] VITALS: BP 148/74
[2018-04-22 20:00] VITALS: BP 141/77
[2018-04-23 08:00] VITALS: BP 144/61
[2018-04-23 20:00] VITALS: BP 137/75
[2018-04-24 08:03] VITALS: BP 141/75
[2018-04-24 20:00] VITALS: BP 138/58
[2018-04-25 08:00] VITALS: BP 148/61
[2018-04-25 08:27] VITALS: BP 148/61
[2018-04-25 20:19] VITALS: BP 141/62
[2018-04-26 08:05] VITALS: BP 142/68
[2018-04-26 20:19] VITALS: BP 130/71
[2018-04-27 08:00] VITALS: BP 138/70
[2018-04-27 11:27] LABS: HEMATOCRIT 27.1 % (37.0-47.0); HEMOGLOBIN 9.2 gm/dL (12.0-15.0); MCH 28.9 pg (26.0-34.0); MCHC 33.8 g/dL (28.0-37.0); MCV 85.5 fL (80.0-100.0); MPV 8.4 fl. (7.2-11.1); RBC 3.18 mil/uL (4.20-5.00); RDW-CV 16.9 % (10.5-14.5); WBC 7.6 thou/uL (4.0-11.0)
[2018-04-27 11:41] LABS: ALBUMIN 2.7 g/dL (3.4-5.0); CALCIUM 8.4 mg/dL (8.5-10.1); CREATININE 1.5 mg/dL (0.6-1.3); POTASSIUM 4.3 mmol/L (3.5-5.1); TOTAL BILIRUBIN 0.4 mg/dL (<0.1-1.0); TOTAL PROTEIN 5.9 g/dL (6.4-8.2)
[2018-04-27 20:00] VITALS: BP 120/53
[2018-04-28 07:30] VITALS: BP 134/63
[2018-04-28 08:27] VITALS: BP 157/75
[2018-04-28 19:00] VITALS: BP 140/76
[2018-04-29 07:15] VITALS: BP 132/66
[2018-04-29 19:12] LABS: ALBUMIN 3.1 g/dL (3.4-5.0); CALCIUM 8.8 mg/dL (8.5-10.1); CREATININE 1.5 mg/dL (0.6-1.3); POTASSIUM 3.9 mmol/L (3.5-5.1); TOTAL BILIRUBIN 0.5 mg/dL (<0.1-1.0); TOTAL PROTEIN 7.1 g/dL (6.4-8.2)
[2018-04-29 19:30] VITALS: BP 131/67
[2018-04-30 07:45] VITALS: BP 149/66
[2018-04-30 08:22] VITALS: BP 149/66
[2018-04-30 15:15] VITALS: BP 138/70
[2018-05-01] MEDS ORDERED: LOPRESSOR25 PO (15:34)
--- NOTE | 2018-05-02 13:19 | H ---
[address] [address] HISTORY AND PHYSICAL Name: ROMEL ESQUIVEL Room: [address] IN .R.#: [id number] Admission: 04/19/18 Attend Phys: Angie Montemayor DO Discharge: 04/30/18 Date of : 31 Report #: [id number] THIS REPORT FOR: //name// CC: Martina Montemayor DATE OF SERVICE: 04/19/2018 HISTORY OF PRESENT ILLNESS: This is a female admitted to inpatient rehabilitation status post acute hospitalization for hepatic flexure diverticulitis and encephalopathy and UTI. 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 Needs in PT, OT and BOOK SALESMAN. No significant changes since preadmission screening. Previous level of function is vklyckkxrjr-bp-hbyweuxv independent with activities of daily living. Current level of function is rwpzjys-jw-cmlwpuju assistance of 1-2 depending on therapy, activity and time of day. Estimated length of stay is 16-17 days, with discharge disposition to the home setting with supportive family and an accessible home. PMH: HTN CAD DM, UNCONTROLLED UTI ANEMIA HGB 9.3 DYSURIA CKD B/L BREAST CANCER GERD SEPSIS NAUSEA AND VOMITING ACUTE RENAL FILURE PSH: APPENDECTOMY B/L MASTECTOMIES CABG CHOLECYSTECTOMY Allergies: Latex, PNC, Sulfa [address] [place] [address] HISTORY AND PHYSICAL Name: ROMEL ESQUIVEL Room: [address] IN [facility]#: [id number] Admission: 04/19/18 Attend Phys: Angie Montemayor DO Discharge: 04/30/18 Date of : 31 Report #: [id number] Social Hx: no tobacco, alcohol or illicity drug use Medications: reviewed, reconciled and in the MAR Family Hx: cardiac disease and DM ROS: 14 point completed and negative except as mentioned in the HPI Physical Exam: AA NAD VSS CV reg Pulmonary symmetric expansion Neuro: 5/5 BLLE, BLUE MSK: no CCE Skin: warm and dry Assessment: Diverticulitis Encephalopathy UTI DM Vasculopathy Plan: PT, OT, BOOK SALESMAN HMS, CM, RN to make evaluations HP/ POC (pending) team weekly <ELECTRONICALLY SIGNED> By: Angie Montemayor DO 05/02/18 1319 1130 1251Angie Montemayor DO /nt
--- NOTE | 2018-06-06 10:39 | D ---
[address] [address] DISCHARGE SUMMARY Name: ROMEL ESQUIVEL Room: [address] IN M.R.#: [id number] Admission: 04/19/18 Attend Phys: Angie Montemayor DO Discharge: 04/30/18 Date of : 31 Report #: [id number] THIS REPORT FOR: //name// CC: Martina Montemayor DATE OF SERVICE: 04/30/2018 HOSPITAL COURSE: The patient was admitted with encephalopathy, complicated urinary tract infection, hepatic flexure diverticulitis with multiple medical comorbid conditions. She was noted to have ongoing hyponatremia and after being seen by Internal Medicine it was decided she needed to be closely monitored on tele, so she was discharged urgently after rounds had been completed. MEDICATIONS: Reviewed and reconciled by Internal Medicine. Due to the urgency of her discharge, physical exam was not completed, but we will follow her on telemetry and we will anticipate return to acute inpatient rehabilitation once medically stable. <ELECTRONICALLY SIGNED> By: Angie Montemayor DO 06/06/18 1039 1347 [id number] Montemayor DO /nt
== END 2018-04-30 16:15 | disposition short-term general hospital (02) | DRG 70 ==
LOC: M.REH 12:14
PROVIDERS: Internal Medicine; ADMIT Physical Medicine & Rehabilitation
DX: G93.40 Encephalopathy, unspecified (principal); K57.33 Diverticulitis of large intestine without perforation or abscess with bleeding; K27.4 Chronic or unspecified peptic ulcer, site unspecified, with hemorrhage; S42.309A Unspecified fracture of shaft of humerus, unspecified arm, initial encounter for closed fracture; B02.8 Zoster with other complications; N39.0 Urinary tract infection, site not specified; E11.51 Type 2 diabetes mellitus with diabetic peripheral angiopathy without gangrene; K44.9 Diaphragmatic hernia without obstruction or gangrene; D52.9 Folate deficiency anemia, unspecified; H91.93 Unspecified hearing loss, bilateral; I25.10 Atherosclerotic heart disease of native coronary artery without angina pectoris; I12.9 Hypertensive chronic kidney disease with stage 1 through stage 4 chronic kidney disease, or unspecified chronic kidney disease; E11.22 Type 2 diabetes mellitus with diabetic chronic kidney disease; N18.9 Chronic kidney disease, unspecified; K21.9 Gastro-esophageal reflux disease without esophagitis; D50.0 Iron deficiency anemia secondary to blood loss (chronic); X58.XXXA Exposure to other specified factors, initial encounter; R10.9 Unspecified abdominal pain; Z90.13 Acquired absence of bilateral breasts and nipples; Z85.3 Personal history of malignant neoplasm of breast; Z95.1 Presence of aortocoronary bypass graft; Z87.440 Personal history of urinary (tract) infections; Z90.49 Acquired absence of other specified parts of digestive tract; Z88.0 Allergy status to penicillin; Z88.2 Allergy status to sulfonamides; Z91.040 Latex allergy status; Z82.49 Family history of ischemic heart disease and other diseases of the circulatory system; Z83.3 Family history of diabetes mellitus; Y93.89 Activity, other specified; Y92.89 Other specified places as the place of occurrence of the external cause; Y99.8 Other external cause status; Z79.899 Other long term (current) drug therapy; Z79.82 Long term (current) use of aspirin

== ENCOUNTER 2018-04-30 17:33 | Observation (INO) | payer MEDICARE, OTHER ==
[~2018-04-30] VITALS: Ht 149.9 cm; Wt 59.6 kg
[2018-04-30 14:30] VITALS: BP 138/55
[~2018-04-30 17:33] MED LIST changes: +CEFDINIR300 MG PO; +HYDROCHLOROTHIA25 M2 PO; +IRON325 PO; +MIRALAX17 GM PO
--- NOTE | 2018-04-30 18:33 | NUR ---
PT ADMITTED FROM REHAB WITH NA 117. ALERT AND ORIENTED X4, FORGETFUL AND ANXIOUS AT TIMES. PT SOA ON ARRIVAL THAT HAS WORSENED. CRACKLES IN LUNG BASES. RESPIRATIONS EVEN AND LABORED AT REST, SAT MID 90S RA. MADE AWARE. TELE SR HRR 80'S. PT UP WITH STEADY GAIT, SBA. PT ORIENTED TO ROOM, ABLE TO MAKE NEEDS KNOWN, CALL LIGHT IN REACH
[2018-04-30 19:10] LABS: BE -5.2 mmol/L (-2 to +3); HCO3 17.2 mmol/L (22.0-26.0); PCO2 24.4 mmHg (35.0-45.0); PO2 67.1 mmHg (75.0-100.0); pH 7.467 (7.340-7.450)
[2018-04-30 19:26] LABS: HEMATOCRIT 25.7 % (37.0-47.0); HEMOGLOBIN 9.1 gm/dL (12.0-15.0); MCHC 35.3 g/dL (28.0-37.0); MCV 85.1 fL (80.0-100.0); MPV 8.3 fl. (7.2-11.1); NUCLEATED RBCS 0 /100WBC; PLATELET COUNT* 275 thou/uL (150-400); RBC 3.03 mil/uL (4.20-5.00); RDW-CV 17.2 % (10.5-14.5); WBC 9.5 thou/uL (4.0-11.0)
[2018-04-30 19:47] LABS: ALBUMIN 2.9 g/dL (3.4-5.0); CREATININE 1.4 mg/dL (0.6-1.3); POTASSIUM 3.9 mmol/L (3.5-5.1); TOTAL BILIRUBIN 0.4 mg/dL (<0.1-1.0); TOTAL PROTEIN 6.3 g/dL (6.4-8.2)
[2018-04-30 20:00] LABS: ABSOLUTE EOSINOPHILS 0.1 thou/uL (0.0-0.7); ABSOLUTE LYMPHOCYTES 0.2 thou/uL (0.8-5.3); ABSOLUTE MONOCYTES 0.6 thou/uL (0.0-1.2); ABSOLUTE NEUTROPHILS 8.6 thou/uL (1.6-8.1); ANISOCYTOSIS 1+; PLATELET ESTIMATE ADEQUATE
[2018-04-30 20:34] VITALS: BP 123/71
[2018-04-30 21:58] LABS: ESR (SEDRATE) 42 mm/hr (0-30)
[2018-05-01] VITALS: BP 129/66
[2018-05-01 04:00] VITALS: BP 133/73
[2018-05-01 05:17] LABS: URINE BILIRUBIN NEGATIVE (Negative); URINE BLOOD NEGATIVE (Negative); URINE CLARITY CLEAR; URINE COLOR YELLOW; URINE GLUCOSE-RANDOM NEGATIVE (Negative); URINE KETONES NEGATIVE (Negative); URINE LEUKOCYTES 1+ (Negative); URINE NITRITE NEGATIVE (Negative); URINE PROTEIN 1+ (Negative); URINE SPECIFIC GRAVITY <= 1.005 (1.005-1.030); URINE UROBILINOGEN 0.2 E.U./dl (0.2-1.0)
[2018-05-01 05:42] LABS: BACTERIA 1-9 Few /HPF (None Seen); CASTS None Seen /LPF (None Seen); CRYSTALS None Seen /LPF (None Seen); MUCUS 0-3 Light strn/LPF (None Seen); SQUAMOUS 4-10 Moderate /LPF (0-3); URINE RBC 0-2 Rare /HPF (0-2); URINE WBC 6-15 Few /HPF (0-5)
--- NOTE | 2018-05-01 06:57 | NUR ---
PT IS ABLE TO COMMUNICATE HER NEEDS TO STAFF EFFECTIVELY; SHE IS A LITTLE [id number]. SHE HAS DENIED THE NEED FOR PAIN MEDICATION UP TO THIS TIME. CONTACT ISOLATION FOR OLD SCABBED OVER SHINGLES ON HER RIGHT TORSO MAINTAINED. NEPHROLOGY CONSULT ORDERED.
[2018-05-01 08:00] VITALS: BP 149/63
[2018-05-01 12:00] VITALS: BP 146/54
--- NOTE | 2018-05-01 14:36 | NUR ---
PT ADMITTED FROM INPT REHAB WITH HYPONATREMIA. PER DR MARRUFO, MAY RETURN TO REHAB TODAY. SPOKE WITH ANGELO AND DR READ, NO FURTHER W/U PLANNED PER DR MARRUFO. MET WITH PT AND HER SISTER, IN AGREEMENT WITH RETURN TO REHAB. PT HOPEFUL TO GO HOME SOON. UPDATED GUERLINE JIMENEZ.
[2018-05-01] MEDS ORDERED: LOPRESSOR25 PO (15:34)
[2018-05-01 16:02] VITALS: BP 146/54
--- NOTE | 2018-05-01 17:03 | NUR ---
ASSUMED PT CARE AT 0730, FULL ASSESMENT DONE CHARTED. PT A/O X4, VERY [place], C/O SOME PAIN IN RIGHT FLANK FROM SHINGLES, THEY ARE SCABBED OVER, DRY. PT DENIES THE NEED FOR ANY PAIN MEDS WHEN ASKED SEVERAL TIMES THROUGHOUT THE SHIFT. PT UP WITH ASSIST, FEELING VERY TIRED. PTS VSS, SR/1ST AVB ON THE MONITOR. REVCIEVED OK TO DISCHARGE BACK TO REHAB TODAY. DISCHARGE ORDERS REVIEWED WITH PT. REPORT GIVEN TO JERRY CUNHA ON REHAB. PT TRANSFERED TO ROOM 328 AT APPROX 1650 WITH STAFF
== END 2018-05-01 16:45 | disposition still patient (30) ==
LOC: M.2W 17:33
PROVIDERS: ADMIT Internal Medicine
DX: R53.1 Weakness (principal); I25.10 Atherosclerotic heart disease of native coronary artery without angina pectoris; I10 Essential (primary) hypertension; Z95.5 Presence of coronary angioplasty implant and graft; Z90.13 Acquired absence of bilateral breasts and nipples; Z90.49 Acquired absence of other specified parts of digestive tract; Z98.890 Other specified postprocedural states; Z87.19 Personal history of other diseases of the digestive system; E87.1 Hypo-osmolality and hyponatremia

== ENCOUNTER 2018-05-01 14:44 | Inpatient (IN) | payer MEDICARE, OTHER ==
[~2018-05-01] VITALS: Ht 149.9 cm; Wt 57.6 kg
[2018-05-01] MEDS ORDERED: LOPRESSOR25 PO (15:34)
[2018-05-01 17:17] VITALS: BP 133/67
[2018-05-01 20:00] VITALS: BP 135/54
[2018-05-02 04:33] LABS: HEMATOCRIT 26.2 % (37.0-47.0); MCH 30.3 pg (26.0-34.0); MCHC 34.5 g/dL (28.0-37.0); MCV 87.9 fL (80.0-100.0); MPV 8.9 fl. (7.2-11.1); RBC 2.98 mil/uL (4.20-5.00); RDW-CV 17.6 % (10.5-14.5); WBC 8.8 thou/uL (4.0-11.0)
[2018-05-02 04:49] LABS: CALCIUM 8.3 mg/dL (8.5-10.1); CREATININE 1.3 mg/dL (0.6-1.3); POTASSIUM 4.4 mmol/L (3.5-5.1)
[2018-05-02 07:30] VITALS: BP 150/82
[2018-05-02 20:17] VITALS: BP 127/60
[2018-05-03 08:25] VITALS: BP 149/77
[2018-05-03 11:30] VITALS: BP 143/60
[2018-05-03 20:00] VITALS: BP 146/77
[2018-05-04 08:00] VITALS: BP 143/67
[2018-05-04 21:01] VITALS: BP 152/68
[2018-05-05 08:30] VITALS: BP 136/60
[2018-05-05 13:31] LABS: CALCIUM 8.3 mg/dL (8.5-10.1); CREATININE 1.6 mg/dL (0.6-1.3); POTASSIUM 4.5 mmol/L (3.5-5.1)
[2018-05-05 20:00] VITALS: BP 134/73
[2018-05-06 07:30] VITALS: BP 149/70
--- NOTE | 2018-05-06 11:08 | CON ---
[address] [address] CONSULTATION Name: ROMEL ESQUIVEL Room: [address] IN .R.#: [id number] Admission: 05/01/18 Attend Phys: Angie Montemayor DO Discharge: Date of : 31 Report #: [id number] THIS REPORT FOR: //name// CC: Martina Montemayor DATE OF SERVICE: 05/01/2018 REQUESTING PHYSICIAN: Italo Robison M.D. REASON FOR CONSULTATION: Hyponatremia. HISTORY OF PRESENT ILLNESS: The patient is an 87-year-old female who was transferred here for evaluation of hyponatremia from rehabilitation. She has history of hyponatremia in the past and they had the numbers were low in the past, we did see her in 2017. At that time, assessment was hyponatremia, probably due to over production of ADH. At this time, her serum sodium also dropped down to 117 after she was given normal saline. She has multiple medical problems including chronic abdominal pain, coronary artery disease, chronic kidney disease, diverticulitis, history of hypertension, history of recurrent urinary tract infection, history of recurrent hyponatremia. She also has a history of bilateral mastectomies for breast cancer 12 years ago. SOCIAL HISTORY: No tobacco or alcohol abuse. MEDICATIONS: Reviewed from my standpoint, she was on hydrochlorothiazide. FAMILY HISTORY: Noncontributory to this 87-year-old female. PHYSICAL EXAMINATION: GENERAL: Awake, alert, oriented. VITAL SIGNS: Blood pressure 149/63, heart rate 79, afebrile. HEENT: Pupils are round. NECK: Supple. LUNGS: Clear. CARDIOVASCULAR: Regular rate. ABDOMEN: Soft. LOWER EXTREMITIES: No edema. LABORATORY DATA: This morning, serum sodium of 127, potassium 3.9, chloride 90, carbon dioxide 25, BUN 25, creatinine 1.4, the urine sodium was 30. [place] [address] CONSULTATION Name: ROMEL ESQUIVEL Room: [address] IN [facility]#: [id number] Admission: 05/01/18 Attend Phys: Angie Montemayor DO Discharge: Date of : 31 Report #: [id number] ASSESSMENT: An 87-year-old female with hyponatremia. It is difficult to say the etiology of that, but probably was overproduction of ADH because her serum sodium actually dropped after she was given normal saline with a history of the breast cancer even it was 12 years ago, but still make sure she does not have any breast cancer recurrence. PLAN: She is an 87-year-old and not sure what kind of options will be available later. At hydrochlorothiazide was appropriately stopped. I will keep her on a fluid restriction and monitor serum sodium very carefully. Chronic kidney disease stage 3. I discussed this case with Dr. Wilcox. <ELECTRONICALLY SIGNED> By: Dion Huerta MD 05/06/18 1108 1207 [id number] Huerta, /gonzalez
[2018-05-06 12:00] LABS: CALCIUM 8.4 mg/dL (8.5-10.1); CREATININE 1.5 mg/dL (0.6-1.3); POTASSIUM 4.6 mmol/L (3.5-5.1)
[2018-05-06 12:43] LABS: URINE BILIRUBIN NEGATIVE (Negative); URINE BLOOD NEGATIVE (Negative); URINE CLARITY CLEAR; URINE COLOR YELLOW; URINE GLUCOSE-RANDOM NEGATIVE (Negative); URINE KETONES NEGATIVE (Negative); URINE LEUKOCYTES NEGATIVE (Negative); URINE NITRITE NEGATIVE (Negative); URINE PROTEIN TRACE (Negative); URINE UROBILINOGEN 0.2 E.U./dl (0.2-1.0)
[2018-05-06 20:00] VITALS: BP 144/83
[2018-05-07 04:26] LABS: CALCIUM 8.5 mg/dL (8.5-10.1); CREATININE 1.5 mg/dL (0.6-1.3); POTASSIUM 4.2 mmol/L (3.5-5.1)
[2018-05-07 07:30] VITALS: BP 137/76
[2018-05-07 20:26] VITALS: BP 138/61
[2018-05-08 08:14] VITALS: BP 144/67
[2018-05-08 08:50] LABS: CALCIUM 8.5 mg/dL (8.5-10.1); CREATININE 1.6 mg/dL (0.6-1.3); POTASSIUM 4.6 mmol/L (3.5-5.1)
[2018-05-08 19:30] VITALS: BP 138/58
[2018-05-09 04:35] LABS: CALCIUM 9.2 mg/dL (8.5-10.1); CREATININE 1.5 mg/dL (0.6-1.3); POTASSIUM 4.6 mmol/L (3.5-5.1)
[2018-05-09 08:03] VITALS: BP 132/60
[2018-05-09 19:20] VITALS: BP 144/60
[2018-05-10 02:09] VITALS: BP 144/60
[2018-05-10 08:07] VITALS: BP 149/63
[2018-05-10 10:55] VITALS: BP 144/60
--- NOTE | 2018-05-27 10:19 | D ---
[address] [address] DISCHARGE SUMMARY Name: ROMEL ESQUIVEL Room: [address] IN M.R.#: [id number] Admission: 05/01/18 Attend Phys: Angie Montemayor, Discharge: 05/10/18 Date of : 31 Report #: [id number] THIS REPORT FOR: //name// CC: Martina Montemayor DISCHARGE DIAGNOSIS: Encephalopathy. DISCHARGE DISPOSITION: To home with home health PT, OT and nursing. She will follow with her primary care physician in 1 week. Notifications for physician were given. She will maintain a heart-healthy diet. Monitor weight gain and maintain fall precautions. MEDICATIONS: Reviewed and reconciled by myself and are available in the MAR. One medication change was initiated as her Lexapro was increased to 20; however, on discharge it was replaced back to the 10 mg daily as opposed to 20. She did have some sustained hyponatremia. She had an interrupted stay where she went down to acute for a short time to be evaluated a little bit more closely for that. Otherwise, she did well with her rehabilitation process. DISCHARGE PHYSICAL EXAMINATION: GENERAL: Alert, oriented, no apparent distress. VITAL SIGNS: Reviewed and are stable. HEENT: Head atraumatic, normocephalic. Pupils equal, round, reactive. ABDOMEN: Soft, nontender, nondistended. NEUROLOGIC: Cranial nerves 2-12 are grossly intact with no focal neuro deficits, 5/5 strength in the bilateral upper and lower extremities. SKIN: Warm and dry. No rashes or lesions noted. The patient's sister is going to come stay with her upon discharge for supervision and safety until she is settled in her independent living space. <ELECTRONICALLY SIGNED> By: Angie Montemayor DO 05/27/18 1019 1348 [id number] Montemayor DO /nt
--- NOTE | 2018-06-19 13:56 | H ---
[address] [address] HISTORY AND PHYSICAL Name: ROMEL ESQUIVEL Room: [address] IN M.R.#: [id number] Admission: 05/01/18 Attend Phys: Angie Montemayor DO Discharge: 05/10/18 Date of : 32 Report #: [id number] THIS REPORT FOR: //name// CC: Martina Montemayor Please note this was an interrupted stay. The previous medical record that this current stay should be linked to is [id number]. The patient was taken to acute for 24-hour period to be monitored closely for hyponatremia. She was then brought back to acute inpatient rehabilitation to finish her stay. Please refer to the plan of care on as needed. <ELECTRONICALLY SIGNED> By: Angie Montemayor DO 06/19/18 1356 1345 [id number] Montemayor DO /nt
== END 2018-05-10 13:22 | disposition home health service (06) | DRG 948 ==
LOC: M.REH 14:44
PROVIDERS: Internal Medicine; Internal Medicine Nephrology; ADMIT Physical Medicine & Rehabilitation
DX: R53.1 Weakness (principal); E87.1 Hypo-osmolality and hyponatremia; D64.9 Anemia, unspecified; G89.29 Other chronic pain; R10.9 Unspecified abdominal pain; I25.10 Atherosclerotic heart disease of native coronary artery without angina pectoris; K57.90 Diverticulosis of intestine, part unspecified, without perforation or abscess without bleeding; I12.9 Hypertensive chronic kidney disease with stage 1 through stage 4 chronic kidney disease, or unspecified chronic kidney disease; E86.0 Dehydration; B02.9 Zoster without complications; N18.3 Chronic kidney disease, stage 3 (moderate); Z87.440 Personal history of urinary (tract) infections; Z90.13 Acquired absence of bilateral breasts and nipples; Z85.3 Personal history of malignant neoplasm of breast; Z88.0 Allergy status to penicillin; Z88.2 Allergy status to sulfonamides; Z91.040 Latex allergy status; Z79.899 Other long term (current) drug therapy; Z79.82 Long term (current) use of aspirin; Z95.1 Presence of aortocoronary bypass graft; Z87.01 Personal history of pneumonia (recurrent); Z90.49 Acquired absence of other specified parts of digestive tract; Z80.0 Family history of malignant neoplasm of digestive organs

== ENCOUNTER 2018-06-08 21:38 | Inpatient (IN) | payer MEDICARE, OTHER ==
[~2018-06-08] VITALS: Ht 149.9 cm; Wt 57.6 kg
[~2018-06-08 21:38] MED LIST changes: +LOPRESSOR25 PO
[2018-06-08 21:39] VITALS: BP 164/87
[2018-06-08 22:26] LABS: HEMATOCRIT 29.5 % (37.0-47.0); HEMOGLOBIN 9.6 gm/dL (12.0-15.0); MCH 27.7 pg (26.0-34.0); MCHC 32.7 g/dL (28.0-37.0); MCV 84.9 fL (80.0-100.0); NUCLEATED RBCS 0 /100WBC; PLATELET COUNT* 253 thou/uL (150-400); RBC 3.47 mil/uL (4.20-5.00); WBC 10.5 thou/uL (4.0-11.0)
[2018-06-08 22:45] LABS: INR 1.3; PROTIME 12.8 Seconds (9.20-11.50)
[2018-06-08 22:46] LABS: ANION GAP 15 mmol/L (7-16); BUN 24 mg/dL (7-18); CHLORIDE 97 mmol/L (98-107); CO2 18 mmol/L (21-32); CREATININE 1.6 mg/dL (0.6-1.3); GLUCOSE 170 mg/dL (70-99); POTASSIUM 4.1 mmol/L (3.5-5.1); SODIUM 130 mmol/L (136-145)
[2018-06-08 22:59] LABS: ALBUMIN 3.6 g/dL (3.4-5.0); ALKALINE PHOSPHATASE 93 U/L (46-116); NT-PRO BRAIN NAT PEPTIDE > 35000 pg/mL (<300); SGOT 26 U/L (15-37); SGPT 17 U/L (30-65); TOTAL BILIRUBIN 0.9 mg/dL (<0.1-1.0); TROPONIN-I LEVEL 0.11 ng/mL (<0.06)
[2018-06-08 23:40] LABS: BE -6.9 mmol/L (-2 to +3); HCO3 17.8 mmol/L (22.0-26.0); PCO2 32.9 mmHg (35.0-45.0); pH 7.352 (7.340-7.450)
[2018-06-08 23:49] LABS: ABSOLUTE LYMPHOCYTES 0.1 thou/uL (0.8-5.3); ABSOLUTE MONOCYTES 0.2 thou/uL (0.0-1.2); ABSOLUTE NEUTROPHILS 10.2 thou/uL (1.6-8.1)
[2018-06-08 23:50] LABS: ANISOCYTOSIS 1+; HYPOCHROMASIA 1+; PLATELET ESTIMATE ADEQUATE
[2018-06-09 00:02] LABS: URINE BILIRUBIN NEGATIVE (Negative); URINE BLOOD TRACE (Negative); URINE CLARITY CLEAR; URINE COLOR YELLOW; URINE GLUCOSE-RANDOM NEGATIVE (Negative); URINE KETONES NEGATIVE (Negative); URINE LEUKOCYTES-REFLEX NEGATIVE (Negative); URINE NITRITE-REFLEX NEGATIVE (Negative); URINE PROTEIN 2+ (Negative); URINE SPECIFIC GRAVITY >= 1.030 (1.005-1.030); URINE UROBILINOGEN 0.2 E.U./dl (0.2-1.0)
[2018-06-09 00:46] LABS: BACTERIA-REFLEX 1-9 Few /HPF (None Seen); CASTS None Seen /LPF (None Seen); SQUAMOUS NONE SEEN /LPF (0-3); URINE RBC 0-2 Rare /HPF (0-2); URINE WBC-REFLEX 0-5 Rare /HPF (0-5)
[2018-06-09 00:47] LABS: AMORPHOUS URATES Moderate /LPF (None Seen)
[2018-06-09 03:31] LABS: BE -8.6 mmol/L (-2 to +3); HCO3 16.9 mmol/L (22.0-26.0); PCO2 34.4 mmHg (35.0-45.0); pH 7.308 (7.340-7.450)
[2018-06-09 03:36] LABS: PO2 34.1 mmHg (75.0-100.0)
[2018-06-09 05:23] VITALS: BP 131/86
[2018-06-09 06:01] VITALS: BP 128/64
[2018-06-09 07:19] LABS: HEMATOCRIT 28.8 % (37.0-47.0); HEMOGLOBIN 9.4 gm/dL (12.0-15.0); MCH 27.6 pg (26.0-34.0); MCHC 32.6 g/dL (28.0-37.0); MCV 84.6 fL (80.0-100.0); MPV 8.2 fl. (7.2-11.1); RBC 3.4 mil/uL (4.20-5.00); RDW-CV 18.1 % (10.5-14.5); WBC 7.8 thou/uL (4.0-11.0)
[2018-06-09 07:32] LABS: ALBUMIN 3.5 g/dL (3.4-5.0); CALCIUM 8.6 mg/dL (8.5-10.1); CREATININE 1.7 mg/dL (0.6-1.3); POTASSIUM 4.3 mmol/L (3.5-5.1); TOTAL BILIRUBIN 0.6 mg/dL (<0.1-1.0); TOTAL PROTEIN 6.7 g/dL (6.4-8.2)
[2018-06-09 08:00] VITALS: BP 129/68
--- NOTE | 2018-06-09 11:25 | NUR ---
ASSUMED PT CARE AT 0700 PT C/O PAIN IN LEFT LEG GAVE PT PAIN MEDS PT STATES PAIN MEDS HELP, PT DENIES SOA ON 15L/NON-REBREATHER PT REEDUCATED TO KEEP MASK ON, PT IS BEDREST PT IS TURNED Q2 HOURS, PT IS SR 1ST ON MONITOR, SPOKE WITH ORTHO WHO STATES NO SURGERY TODAY NEEDS CARDIOLOGY CLEARANCE AND MAY PROCEED WITH SURGERY TOMORROW, PT IS HARD OF HEARING ORTHO CLEARED PT TO EAT TODAY PT WILL BE NPO AT MIDNIGHT EDUCATED PT ON PLAN OF CARE PT STATES UNDERSTANDING, WILL CONTINUE TO MONITOR
--- NOTE | 2018-06-09 12:00 | EKG ---
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 : 1930 Requested By: Maddy Green Order Number: [id number] MD: Quan Ramires Measurements Intervals [place] Rate: 91 P: 56 ND: 203 QRS: -13 QRSD: 86 T: 166 QT: 406 QTc: 500 Interpretive Statements Sinus rhythm Low voltage, extremity leads Repol abnrm suggests ischemia, lateral leads Compared to ECG 04/15/2018 11:36:44 Low QRS voltage now present Possible ischemia now present Electronically Signed On 06-09-2018 12:00:21 CDT by Quan Ramires [email or web address] <ELECTRONICALLY SIGNED> By: Quan Ramires MD, FACC 06/09/18 1200 03 03 Quan Ramires MD, FACC /EPI
--- NOTE | 2018-06-09 12:01 | EKG ---
[place] [address] ELECTROCARDIOGRAM REPORT Name: ROMEL ESQUIVEL Room: [address] ADM IN M.R.#: [id number] Admission: 06/09/18 Attend Phys: Lior Freitas, Discharge: Date of : 31 Report #: [id number] THIS REPORT FOR: //name// [facility] ED Test Date: 2018-06-09 Test Time: 03:17:46 Pat Name: ROMEL ESQUIVEL Department: Room: 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: : 1930 Requested By: Maddy Green Order Number: [id number] MD: Quan Ramires Measurements Intervals [place] Rate: 84 P: 51 HI: 196 QRS: -34 QRSD: 95 T: 122 QT: 470 QTc: 556 Interpretive Statements Sinus rhythm Left axis deviation Borderline low voltage, extremity leads Abnormal R-wave progression, late transition Borderline repolarization abnormality Prolonged QT interval Compared to ECG 04/15/2018 11:36:44 Prolonged QT interval now present Electronically Signed On 06-09-2018 12:01:25 CDT by Quan Ramires [email or web address] <ELECTRONICALLY SIGNED> By: Quan Ramires MD, FACC 06/09/18 1201 0317 6 Quan Ramires MD, FAC /EPI
[2018-06-09 12:02] VITALS: BP 127/61
[2018-06-09 16:00] VITALS: BP 103/76
[2018-06-09 17:03] LABS: BE -5.8 mmol/L (-2 to +3); HCO3 18.1 mmol/L (22.0-26.0); PCO2 29.4 mmHg (35.0-45.0); pH 7.406 (7.340-7.450)
[2018-06-09 17:04] LABS: PO2 168.4 mmHg (75.0-100.0)
[2018-06-09 19:50] VITALS: BP 157/53
[2018-06-10] VITALS: BP 124/61
[2018-06-10 04:00] VITALS: BP 136/52
[2018-06-10 04:56] LABS: HEMATOCRIT 26.4 % (37.0-47.0); HEMOGLOBIN 8.6 gm/dL (12.0-15.0); MCH 27.7 pg (26.0-34.0); MCHC 32.5 g/dL (28.0-37.0); MCV 85.3 fL (80.0-100.0); MPV 8.2 fl. (7.2-11.1); RBC 3.1 mil/uL (4.20-5.00); RDW-CV 17.7 % (10.5-14.5)
[2018-06-10 05:20] LABS: ALBUMIN 3.2 g/dL (3.4-5.0); CALCIUM 8.8 mg/dL (8.5-10.1); CREATININE 1.9 mg/dL (0.6-1.3); MAGNESIUM 1.8 mg/dL (1.8-2.4); TOTAL BILIRUBIN 0.6 mg/dL (<0.1-1.0); TOTAL PROTEIN 6.1 g/dL (6.4-8.2)
--- NOTE | 2018-06-10 06:03 | NUR ---
END SHIFT: PT RESTED WELL. PAIN CONTROLLED WITH PAIN MEDICATION, IV AND ORAL. HAS REMAINED NPO SINCE [place] AWAITING DECISION FOR SURGERY. NSR/SB ON MONITOR. TITRATED OFF NRB TO NC AND TOLERATING WELL. LUNGS REMAIN WET AND COURSE SOUNDING. ICE PACK TO LEFT HIP FOR COMFORT. MCKINNON DRAINING ADEQUATE. SAFETY PRECAUTIONS IN PLACE. VSS. ASSESSMENT UNCHANGED. CALL LIGHT IN REACH. PERFORMED HOURLY ROUNDING. WILL CONT TO MONITOR.
[2018-06-10 08:00] VITALS: BP 150/66
--- NOTE | 2018-06-10 09:11 | CON ---
[address] [address] CONSULTATION Name: ROMEL ESQUIVEL Room: [address] IN .R.#: [id number] Admission: 06/09/18 Attend Phys: Lior Freitas, Discharge: Date of : 31 Report #: [id number] THIS REPORT FOR: //name// CC: Martina Freitas DATE OF SERVICE: 06/09/2018 INPATIENT CONSULTATION REASON FOR CONSULTATION: Preop hip surgery, congestive heart failure. HISTORY OF PRESENT ILLNESS: The patient is an 87-year-old female with a history of diastolic heart failure who presents with a fall and fracture of her hip. We were asked to see her for preop evaluation. She had a mildly displaced intertrochanteric fracture of the left femoral neck. She has a significant oxygen requirement and presents with bilateral rales. She denies chest pain or pressure, but admits she had been short of breath increasingly over the last several days. She denies palpitations. She presents in sinus rhythm. She has a known history of preserved LV systolic function, but mild valvular disease, mild aortic valve stenosis. PAST MEDICAL HISTORY: She has a history of chronic diastolic heart failure, followed by Dr. Gage. She also has remote history of atherosclerotic heart disease; records are not available. She has chronic kidney disease, remote history of GI bleeding, frequent urinary tract infections. ALLERGIES: SHE HAS ALLERGIES TO LATEX, PENICILLIN. MEDICATIONS: She takes iron, Protonix 40 mg daily, baby aspirin, Toprol 25 mg p.o. b.i.d. REVIEW OF SYSTEMS: GASTROINTESTINAL: No nausea or vomiting. HEMATOLOGIC: No anemia or bleeding disorders. GENITOURINARY: No dysuria or hematuria. MUSCULOSKELETAL: Positive fall. SKIN: No rashes. GENERAL: No fevers or chills. CARDIOVASCULAR: No chest pain. Positive dyspnea, positive orthopnea, positive PND. No palpitations. RENAL: No history of kidney failure. Chronic kidney [place] [address] CONSULTATION Name: ROMEL ESQUIVEL Room: [address]#: [id number] Admission: 06/09/18 Attend Phys: Lior Freitas, Discharge: Date of : 31 Report #: [id number] PHYSICAL EXAMINATION: VITAL SIGNS: Blood pressure is 128/64, pulse is 80. She is in a sinus rhythm. Respiratory rate is 22. Her O2 sats are 100% on oxygen via facemask delivery. GENERAL: This is a cachectic, elderly female. HEENT: There is no evidence of trauma. Eyes, EOMs are intact. Ears, she is hard of hearing. NECK: Supple. No jugular venous distention. CARDIOVASCULAR: Regular. Systolic murmur. LUNGS: Coarse breath sounds bilaterally. ABDOMEN: Soft, nontender. EXTREMITIES: No peripheral edema. There is peripheral wasting. DIAGNOSTIC DATA: X-ray shows congestive heart failure. V/Q scan was low probability for PE. LABORATORY DATA: Hemoglobin is 9.4, white blood cell count is 7.8, platelet count is 225,000. Sodium is 131, potassium is 4.3, chloride is 99, CO2 is 20, BUN is 25, creatinine is 1.7. Troponin I was 2.27, 1.33 on presentation. It is noted on 04/14/2018 her troponin I was normal and then on 04/15/2018 it was 5.56. IMPRESSION: 1. Acute congestive heart failure, diastolic. She has significant oxygen requirements and infiltrates on x-ray. She has been given a low dose of IV Lasix, I would redose this again today. We will continue with high-flow oxygen. 2. Non-ST elevation myocardial infarction. At this point in time, she reports no angina, but has a history of coronary artery disease and not currently a candidate for aggressive coronary intervention. 3. Hip fracture. She is a high risk for this type of surgery. We would need to stabilize her oxygen function, she presents with active congestive heart failure exacerbation and likely had a myocardial ischemic event recently. I will check a limited echocardiogram to assess her LV function. 4. Coronary artery disease. As noted above. 5. Acute kidney injury. We will need to monitor renal function closely. <ELECTRONICALLY SIGNED> By: Kraig Wiseman MD, FACC 06/10/18 0911 1152 [id number] Ramires MD, FACC /nt
--- NOTE | 2018-06-10 11:30 | NUR ---
MET WITH PT AND SR LAURA COLLADO IN ROOM TO DISCUSS HOME SITUATION/DC PLANNING. PT KNOWN TO CM FROM PREVIOUS STAY IN HOSPITAL AND REHAB STAY IN APR. 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 SHE HAS HH WITH [facility] AND USES WALKER AND W/C NEEDED. HAD FALL AND NOW WITH HIP FX, TO HAVE SURGERY SOON. DISCUSSED POSSIBLE DC NEEDS REHAB VS SNF. PER SR SANCHEZ, SHE IS DPOA WELL SR HORTENCIA TARIQ. SR SANCHEZ ALSO STATED THAT 'THE COMMUNITY' HELPS MAKE DECISIONS RE: LIVING SITUATION ALSO. WILL FOLLOW AND ASSIST
[2018-06-10 13:10] VITALS: BP 150/66; BP 158/65
--- NOTE | 2018-06-10 13:20 | 2DMMODE ---
[place] [address] 2 D/M-MODE ECHOCARDIOGRAM Name: ROMEL ESQUIVEL Room: [address] IN [facility]#: [id number] Admission: 06/09/18 Attend Phys: Lior Saldaña Discharge: Date of : 31 Date of Service: 06/10/18 1320 Report #: [id number] THIS REPORT FOR: //name// APPROVED REPORT Study performed: 06/10/2018 10:00:33 EXAM: Comprehensive 2D, Doppler, and color-flow Echocardiogram Patient Location: In-Patient Room #: [facility] Status: routine BSA: 1.54 HR: 74 bpm BP: 150/66 mmHg Rhythm: NSR Other Information Study Quality: Good Indications Dyspnea 2D Dimensions IVSd: 8.88 (7-11mm) LVOT Diam: 18.57 (18-24mm) LVDd: 41.13 mm PWd: 7.99 (7-11mm) Ascending Ao: 27.77 (22-36mm) LVDs: 29.64 (25-40mm) Aortic Root: 25.13 mm Volumes Left Atrial Volume (Systole) LA ESV Index: 44.00 mL/m2 Aortic Valve AoV Peak Martinez.: 1.68 m/s AO Peak Gr.: 11.26 mmHg LVOT Max P.12 mmHg AO Mean Gr.: 5.92 mmHg LVOT Mean P.12 mmHg LVOT Max V: 0.73 m/s AO V2 VTI: 33.09 cm LVOT Mean V: 0.49 m/s DANNIE (VTI): 1.31 cm2 LVOT V1 VTI: 15.99 cm Mitral Valve E/A Ratio: 1.51 MV Decel. Time: 171.97 ms MV E Max Martinez.: 1.14 m/[place] [address] 2 D/M-MODE ECHOCARDIOGRAM Name: ROMEL ESQUIVEL E Room: [address] IN .R.#: [id number] Admission: 06/09/18 Attend Phys: Lior Saldaña Discharge: Date of : 31 Date of Service: 06/10/18 1320 Report #: [id number] MV PHT: 49.87 ms MVA (PHT): 4.41 cm2 TDI E/Lateral E': 14.25 E/Medial E': 28.50 Medial E' Martinez.: 0.04 m/s Lateral E' Martinez.: 0.08 m/s Pulmonary Valve PV Peak Martinez.: 0.92 m/s PV Peak Gr.: 3.36 mmHg Tricuspid Valve RAP Estimate: 5.00 mmHg TR Peak Gr.: 39.16 mmHg RVSP: 44.00 mmHg PA Pressure: 44.00 mmHg Left Ventricle The left ventricle is normal size. There is normal LV segmental wall motion. There is normal left ventricular wall thickness. Left ventricular systolic function is mildly decreased. LVEF is 45%. The left ventricular diastolic function is normal. Right Ventricle Right ventricle is mildly dilated. Atria Left atrium is moderately dilated. Right atrium is mildly dilated. Aortic Valve Moderate aortic valve sclerosis. Trace aortic regurgitation. Mild aortic stenosis. Mitral Valve The mitral valve is normal in structure. Mild to moderate mitral regurgitation. No evidence of mitral valve stenosis. Tricuspid Valve The tricuspid valve is normal in structure. Mild tricuspid regurgitation. Moderate pulmonary hypertension. Pulmonic Valve The pulmonary valve is normal in structure. Mild pulmonic regurgitation[place] [address] 2 D/M-MODE ECHOCARDIOGRAM Name: ROMEL ESQUIVEL Room: [address] [facility].#: [id number] Admission: 06/09/18 Attend Phys: Lior Saldaña Discharge: Date of : 32 Date of Service: 06/10/18 1320 Report #: [id number] The aortic root is normal in size. IVC is normal in size and collapses >50% with inspiration. Pericardium There is no pericardial effusion. <Conclusion> The left ventricle is normal size. There is normal left ventricular wall thickness. Left ventricular systolic function is mildly decreased. LVEF is 45%. The left ventricular diastolic function is normal. Right ventricle is mildly dilated. Left atrium is moderately dilated. Right atrium is mildly dilated. Moderate aortic valve sclerosis. Trace aortic regurgitation. Mild aortic stenosis. The mitral valve is normal in structure. Mild to moderate mitral regurgitation. No evidence of mitral valve stenosis. The tricuspid valve is normal in structure. IVC is normal in size and collapses >50% with inspiration. There is no pericardial effusion. There is normal LV segmental wall motion. <ELECTRONICALLY SIGNED> By: Benjy Serna MD, FACC 06/10/18 132 1320 19 Benjy Serna MD, FACC /INF
[2018-06-10 20:00] VITALS: BP 133/62
[2018-06-11] VITALS: BP 139/61
[2018-06-11 04:00] VITALS: BP 116/50; BP 119/55
[2018-06-11 08:00] VITALS: BP 137/57
--- NOTE | 2018-06-11 08:49 | CON ---
[address] [address] CONSULTATION Name: MONET ESQUIVEL Room: [address] IN .R.#: [id number] Admission: 06/09/18 Attend Phys: Lior Freitas, Discharge: Date of : 31 Report #: [id number] THIS REPORT FOR: //name// CC: Martina Freitas DATE OF SERVICE: 06/10/2018 REQUESTING PHYSICIAN: Lior Freitas MD REASON FOR CONSULTATION: Hypoxic respiratory failure. DISCUSSION: The patient is an 87-year-old nonsmoking woman with no prior history of documented lung disease. She resides in a alf center. She was brought to the Emergency Department actually on the evening of 06/08/2018 following a fall. She had been in either some type of a chair or on the bed and slipped to the floor. She did not have a syncopal episode. Was having significant pain. EMS was called and she was brought to the hospital. When evaluated in the Emergency Department, she was found to have a fractured left hip. There was difficulty keeping up her O2 saturations in the ER. At one point she was on a nonrebreather. She has been weaned to a nasal cannula at the time I saw her this morning. She is a lifelong nonsmoker. She has no prior history of known pulmonary disease. She does have a history of coronary artery disease and also diastolic heart failure. She is known to have some mild aortic stenosis. X-rays including a CT scan done revealed cardiomegaly with pulmonary vascular congestion. A noncontrast CT chest revealed bilateral pleural effusions as well as vascular congestion. Previously, she had had some mild mediastinal adenopathy and that remained stable. Because of her high O2 needs and surgery being contemplated, we were asked to see her. Cardiology has been consulted as well. They did see her yesterday. Note that her troponins were elevated yesterday. Her proBNP was also greater than 3500. She does note she has been more short of breath recently. However, denies having any cough or congestion at home. She is not aware of any fevers at home. She has had several other falls. One of them may have also been associated with a syncopal episode. This morning, she is denying any cough, palpitations or chest pain. Main complaint is severe pain in her left hip and leg area. For obvious reasons, she is not wanting to be moved. PAST MEDICAL HISTORY: Primarily remarkable for coronary artery disease. She has had coronary artery bypass grafting surgery done at [facility]. She has also had stents placed. Again, all this has been at [facility]. She typically follows with Dr. Gage. [place] [address] CONSULTATION Name: MONET ESQUIVEL Room: [address] IN ..#: [id number] Admission: 06/09/18 Attend Phys: Lior Freitas, Discharge: Date of : 31 Report #: [id number] appendectomy, hypertension, diverticular disease and she had a prior laparoscopic cholecystectomy, prior episodes of SIADH. She has remote history of breast cancer and had bilateral mastectomy greater than 10 years ago. MEDICATIONS: At the time of admission, iron supplements, Protonix, aspirin, Lexapro, vitamin D, metoprolol. SOCIAL HISTORY: Nonsmoker. 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 She currently is residing in a alf facility. Did have TB skin tests done in the past, which were all negative. FAMILY HISTORY: Not pertinent in this elderly woman. REVIEW OF SYSTEMS: A 12-point ROS was done. Note positives above. It appears this fall was a mechanical fall and she denies any syncope or loss of consciousness prior to this event. However, she does admit to prior episodes of syncope. Has had some trouble getting around. Denies any difficulty swallowing. She has not had any nausea or vomiting. Has no chest pain. Has some occasional cough, no sputum. She is not aware of any fevers. It is otherwise negative. PHYSICAL EXAMINATION: GENERAL APPEARANCE: A woman who looks her stated age. She is alert, conversant, able to speak in full sentences. HEENT: She is quite hard of hearing. Head is normocephalic. She does have some ecchymotic areas noted. Has O2 running via nasal cannula. NECK: Negative for cervical adenopathy. No supraclavicular adenopathy. Neck veins may be a little well developed. HEART: Regular with occasional extrasystole. Tones are distant. LUNGS: She has a few crackles heard in the bases. No wheezing is heard. Exam is somewhat limited due to difficulty moving her. ABDOMEN: Soft, without appreciable hepatosplenomegaly. No guarding. Does have some discomfort in her left lower quadrant and over the left leg area. EXTREMITIES: Left leg was not moved or disturbed. Right extremity reveals few small varicosities. No significant edema. SKIN: Warm and dry. NEUROLOGIC: She is alert and oriented x 3. LABORATORY AND X-RAY FINDINGS: Chest x-ray and her CAT scan were reviewed. Her CT chest was done yesterday. She has bilateral pleural effusions noted. A hiatal hernia is also noted. Mild mediastinal adenopathy is noted. Arterial blood gases done yesterday on a nonrebreather, she had a pH of 7.41, a pCO2 of 29, a pO2 of 168, bicarbonate of 18 with a saturation of 98%. Her BUN is 28, creatinine of 1.9, potassium is 4.0. Her sodium is 135, up from 130 yesterday. ProBNP was greater than 35,000. Troponins peaked at 2.27 yesterday, down to 1.2 today. Echocardiogram has been done, [place] [address] CONSULTATION Name: MONET ESQUIVEL Room: [address] IN ..#: [id number] Admission: 06/09/18 Attend Phys: Lior Freitas, Discharge: Date of : 31 Report #: [id number] cell count 7000, hemoglobin is 8.6, hematocrit of 26.4, platelets 180,000. Echocardiogram done in early April revealed normal systolic function, 50-55% EF. Did suggest she had impaired LV relaxation. LA was moderately dilated. She had mild aortic stenosis and mild aortic regurgitation. Mild mitral regurgitation. Did have moderate pulmonary hypertension. IMPRESSION: 1. Hypoxic respiratory failure. O2 needs have already improved. She has gone from a nonrebreather down to nasal cannula at the time I saw her this morning. Clinically, I suspect this is probably pulmonary edema. Has bilateral pleural effusions. She had been getting progressively more short of breath even prior to her fall. May have had unrecognized myocardial infarction (non-ST elevation myocardial infarction). Clinically, doubt pneumonia. 2. Status post fall with left hip fracture. 3. Remote history of breast carcinoma. 4. Chronic kidney disease. 5. 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 6. History of hypertension. 7. Mild anemia. RECOMMENDATIONS: 1. Wean O2 as able. 2. Echo is pending. Cardiology is also following up. I think there okay for surgery is probably the most imperative. 3. Once she gets through her surgery, depending on followup imaging, could consider thoracentesis. Most likely this is related to her fluid status, but with remote history of breast cancer, recurrence does need to be kept into the differential diagnosis. <ELECTRONICALLY SIGNED> By: oMnet Pathak MD 06/11/18 0849 1322 [id number] Pathak MD /nt
[2018-06-11 12:12] VITALS: BP 94/42
--- NOTE | 2018-06-11 15:46 | NUR ---
MET WITH PT'S DPOA/SR GALO AND SR SANCHEZ TO DISCUSS DC PLANS AGAIN. PT CONFUSED TODAY. SR GALO STATED THAT PT WILL NEED SNF, THAT SHE DOESN'T KNOW YET BUT MAY NOT BE ABLE TO RETURN TO HER ILF. THE 'COMMUNITY' IS CONSIDERING OPTIONS FOR HER LIVING SITUATION/ DISCUSSED SNF OPTIONS, ANTICIPATE PT WILL BE READY BY END OF WEEK FOR DC. THEY WOULD LIKE [facility], IF NOT, THEN [facility] OR [facility]. CALLED AND FAXED REFERRAL TO NATE, CONNIE/NATE CAME TO VISIT WITH PT AND THEY WILL ACCEPT PT PENDING BED AVAILABILITY. STRESSED THAT IT'S IMPORTANT TO PT PER SR GALO TO BE WHERE SHE CAN RECEIVE COMMUNION AND MASS. WILL FOLLOW
[2018-06-11 16:00] VITALS: BP 113/55
--- NOTE | 2018-06-11 19:00 | NUR ---
PATINET RESTING IN BED. UP WITH ASSIST X1 AND WALKER AND 50 PERCENT WEIGHT BEARING TO LEFT HIP. VITAL SIGNS STABLE AND PATINET IN NOAPPARENT DISTRESS AT THIS TIME. HOURLY ROUNDING COMPLETED FOR PATINET SAFETY
[2018-06-11 20:00] VITALS: BP 115/55
[2018-06-12] VITALS: BP 151/72
[2018-06-12 04:00] VITALS: BP 131/62
--- NOTE | 2018-06-12 04:30 | NUR ---
AT 0300, PT BLADDER SCANNED, RESIDUAL >900 AFTER SMALL EPISODE OF URINARY INCONTINENCE AND INABILITY TO VOID. NEW ORDER RECEIVED BY DR. LINARES. SILICONE MCKINNON CATHETER INSERTED.
--- NOTE | 2018-06-12 04:59 | NUR ---
ASSUMED CARE OF PT AT 1930. VSS. TRACK LAYING EQUIPMENT OPERATOR IN PLACE. SR. [place] DRESSING CLEAN, DRY AND INTACT. Q 2 H REPOSITIONING COMPLETED. SILICONE MCKINNON INSERTED FOR URINARY RETENTION. HOURLY ROUNDING COMPLETED. FALL PRECAUTIONS IN PLACE. CALL LIGHT WITHIN REACH.
[2018-06-12 05:05] LABS: CALCIUM 8.7 mg/dL (8.5-10.1); CREATININE 2.1 mg/dL (0.6-1.3); POTASSIUM 4.1 mmol/L (3.5-5.1)
[2018-06-12 05:16] LABS: URINE BILIRUBIN NEGATIVE (Negative); URINE BLOOD NEGATIVE (Negative); URINE CLARITY CLEAR; URINE COLOR YELLOW; URINE GLUCOSE-RANDOM NEGATIVE (Negative); URINE KETONES NEGATIVE (Negative); URINE LEUKOCYTES NEGATIVE (Negative); URINE NITRITE NEGATIVE (Negative); URINE PROTEIN NEGATIVE (Negative); URINE UROBILINOGEN 0.2 E.U./dl (0.2-1.0)
[2018-06-12 08:21] VITALS: BP 143/65
--- NOTE | 2018-06-12 11:23 | NUR ---
re: CHF medication education. Met with pt to discuss heart failure medication. Discussion focused on metoprolol. Pt expressed she has limitations to understanding due to poor hearing & delegating medication coordination to her sister. We did review importance of compliance with regimen and discussed potential side effects. Left medication information for pt (& her sister) with contanct information for the pharmacy for any further questions or issues.
[2018-06-12 12:00] VITALS: BP 123/49
--- NOTE | 2018-06-12 12:10 | NUR ---
PT ALERT, ORIENTED AND ALL VSS ON 2L. TELE TRACKING NSR 80'S-90'S. C/O LEFT HIP/LEG PAIN- MEDEICATED PER EMAR. MCKINNON TO DD WITH ADEQUATE UO SO FAR THIS SHIFT. UP IN CHAIR THIS AM AND TOLERATING WELL. EDUCATED ON SAFETY AND PLAN OF CARE. PLEASE SEE ASSESSMENT FOR ADDITIONAL INFORMATION. WILL CONTINUE TO MONITOR.
[2018-06-12 14:00] VITALS: BP 141/63
--- NOTE | 2018-06-12 14:39 | NUR ---
I HAVE REVIEWED THE REASSESSMENT AND DOCUMENTATION BY STUDENT NURSE NOLBERTO CLINE AND AGREE
--- NOTE | 2018-06-12 19:01 | NUR ---
PT UP IN CHAIR SEVERAL TIMES THIS SHIFT. CONTINUES TO C/O LEFT HIP PAIN AND MEDICATED PER EMAR. WILL CONTINUE TO MONITOR
[2018-06-12 20:00] VITALS: BP 133/64
[2018-06-13] VITALS: BP 136/35
[2018-06-13 04:00] VITALS: BP 136/52
[2018-06-13 05:05] LABS: ANION GAP 8 mmol/L (7-16); BUN 40 mg/dL (7-18); CALCIUM 8.3 mg/dL (8.5-10.1); CHLORIDE 100 mmol/L (98-107); CHOLESTEROL 89 mg/dL (<200); CO2 24 mmol/L (21-32); CREATININE 1.9 mg/dL (0.6-1.3); GLUCOSE 93 mg/dL (70-99); HDL CHOLESTEROL 32 mg/dL (>40); LDL CHOLESTEROL 37 mg/dL (<100); POTASSIUM 3.7 mmol/L (3.5-5.1); SERUM ASSESSMENT CLEAR; SODIUM 132 mmol/L (136-145); TC:HDL 2.8 Ratio (Not establshd); TRIGLYCERIDE 100 mg/dL (<150); VLDL 20 mg/dL (<40)
[2018-06-13 08:00] VITALS: BP 137/62
--- NOTE | 2018-06-13 08:03 | NUR ---
ASSUMED PT CARE AT 1930. ASSESSMENT COMPLETED CHARTED. ABLE TO MAKE MY NEEDS KNOWN. C/O LEFT HIP PAIN FROM RECENT HIP SURGERY. Q2TURN. RESTED MOST OF THE SHIFT. WILL CONTINUE TO MONITOR.
--- NOTE | 2018-06-13 11:03 | NUR ---
PT DROWSY, BUT DOES READILY RESPOND TO VOICE. ORIENTED X2-3. VSS ON 2L. PT C/O LEFT HIP PAIN- EDUCATED PER EMAR. MCKINNON TO DD WITH ADEQUATE UO SO FAR THIS SHIFT. EDUCATED ON SAFETY AND PLAN OF CARE. PLEASE SEE ASSESSMENT FOR ADDITIONAL INFORMATION. WILL CONTINUE TO MONITOR
--- NOTE | 2018-06-13 12:08 | NUR ---
CONTINUE TO FOLLOW, DISCUSSED WITH DR MARRUFO. PT TO GO TO SNF AT [facility] [place], THEY WILL HAVE A BED FOR HER TOMORROW/FRI. UPDATED PT AND DPOA/SR GALO. IN AGREEMENT WITH PLAN. PT HAD REHAB CONSULT ALSO, DPOA PREFERS SNF, VOICED CONCERN THAT PT WILL NOT RETURN HOME AT [facility]. SPOKE WITH KATE/REHAB LIASON, WILL NOT PURSUE REHAB EVAL
[2018-06-13 12:21] VITALS: BP 125/66
[2018-06-13 16:00] VITALS: BP 134/45
--- NOTE | 2018-06-13 17:12 | NUR ---
PT STATES FEELING BETTER TODAY AND LOOKING FORWARD TO REHAB AND DC TOMORROW. ASSESSMENT REMAINS UNCHANGED. WILL CONTINUE TO MONITOR
[2018-06-13 20:10] VITALS: BP 151/60
[2018-06-14] VITALS: BP 128/52
--- NOTE | 2018-06-14 01:58 | NUR ---
PLASTIC TECHNICIAN IN PLACE AND RUNNING NSR. ON 2L O2 VIA NC. AX0 TO SELF AND LOCATION. UP WITH X2 ASSIST. HOURLY ROUNDING COMPLETED FOR PT SAFETY. CALL LIGHT IN REACH AND FALL PRECAUTIONS IN PLACE. WILL CONTINUE TO MONITOR.
[2018-06-14 04:50] VITALS: BP 147/69
--- NOTE | 2018-06-14 05:08 | NUR ---
THIS RN REVIEWED AND AGREES WITH [employer] STUDENT HARISH PAGAN ASSESSMENT.
[2018-06-14 07:40] LABS: CALCIUM 8.2 mg/dL (8.5-10.1); CREATININE 1.7 mg/dL (0.6-1.3); POTASSIUM 3.5 mmol/L (3.5-5.1)
[2018-06-14 08:00] VITALS: BP 123/53
--- NOTE | 2018-06-14 10:08 | NUR ---
0719 ASSUMED CARE OF PATIENT. PLEASE SEE DOCUMENTED ASSESSMENT. PT IS ORIENTED TO SELF ONLY. PLAN IS FOR DISCHARGE TO [facility] TODAY. LEFT LEG DRESSING DRY AND INTACT
--- NOTE | 2018-06-14 10:10 | NUR ---
0945 MCKINNON CATHETER REMOVED
--- NOTE | 2018-06-14 11:40 | NUR ---
SCARRER SPOKE TO ALBERTO WITH [facility] TO INFORM OF THE PATIENT'S D/C. ALBERTO INFORMS THAT [facility] WILL PROVIDE TRANSPORTATION TO THE FACILTIY AT 1630. D/C INSIDE SALES SPOKE TO THE PATIENT AND SR GALO TO DISCUSS DISCHARGE PLANNING NEEDS AND SNF AT [facility] WITH TRANSFER AT 1630. PATIENT AND SR GALO IN AGREEMENT. SCARRER INFORMED THE RN IN-CHARGE OF THE PATIENT OF THE PATIENT'S TIME OF TRANSFER AND WHERE TO CALL REPORT. RN IN AGREEMENT. CM WILL REMAIN AVAILABLE TO ASSIST AND FOLLOW NEEDED.
[2018-06-14] MEDS ORDERED: NORCO 5-325 TA1 EACH PO (11:59)
[2018-06-14 12:00] VITALS: BP 136/55
--- NOTE | 2018-06-14 13:00 | NUR ---
ACUTE INPATIENT REHAB UNIT CONSULT RECEIVED 06/13/18 AND ACKNOWLEDGED BY BLANKMAKER AND DR. READ. PER DROP MAN, FELICITA, PATIENT IS TO DISCHARGE TO A [facility] FACILITY. PATIENT IS S/P RECENT IRF STAY AND IS CURRENTLY 50% WEIGHT BEARING S/P HIP FX. PER CASE MANAGEMENT NOTES, PATIENT MAY NOT BE ABLE TO RETURN TO HER INDEPENDENT LIVING FACILITY. THANK YOU FOR THIS REFERRAL.
--- NOTE | 2018-06-14 14:58 | NUR ---
[place] [facility] [place]. BACK TO BED. MEDICATED FOR PAIN
--- NOTE | 2018-06-14 15:09 | NUR ---
ATTEMPTED TO CALL REPORT BUT [facility] BUSY AT THIS TIME AND TOLD TO CALL BACK
--- NOTE | 2018-06-14 15:40 | NUR ---
REPORT CALLED TO [facility].
--- NOTE | 2018-06-27 09:32 | OP ---
[address] [address] OPERATIVE REPORT Name: ROMEL ESQUIVEL Room: [address] IN M.R.#: [id number] Admission: 06/09/18 Attend Phys: Lior Freitas, Discharge: 06/14/18 Date of : 31 Report #: [id number] THIS REPORT FOR: //name// CC: Martina Freitas DATE OF SERVICE: 06/10/2018 FAMILY PHYSICIAN: Dr. Martina Gurrola. PREOPERATIVE DIAGNOSIS: Closed intertrochanteric fracture, left hip. POSTOPERATIVE DIAGNOSIS: Closed intertrochanteric fracture, left hip. OPERATION PERFORMED: Open reduction and internal fixation left hip with cephalomedullary nail, physician directed fluoroscopy by Dr. Whitfield under 1 hour. SURGEON: Kraig Whitfield DO. TELEMARKETING FUNDRAISER: Sim Graham DO. ANESTHESIA: General. GROSS PATHOLOGY: There was evidence of a closed intertrochanteric fracture of the left hip. IMPLANTS UTILIZED: Oanh standard gamma nail 125 degree angle. DESCRIPTION OF PROCEDURE: The patient was brought to the operating room. Test dose of Ancef was given without difficulty and 1 gram of Ancef was given IV piggyback. The patient was placed on the operating table. The left leg was placed in traction. The fracture was reduced, noted to be in acceptable position. Hibiclens scrub and a ChloraPrep, prep were done to the left hip and leg. The patient was draped in a sterile manner. An incision was made approximately 3 inches in length at the greater trochanteric area. This was carried down through the skin and subcuticular material by sharp and blunt dissection to the greater trochanter. A starting awl was utilized to make a hole in the greater trochanter. The guidewire was placed down the shaft of the femur and the C-arm was utilized to confirm guidewire in good position. The femur was then reamed starting with 9 mm up to 12.5 mm to the area where the heather will end and the femur was then reamed to 15.5 mm to the area of the lesser trochanter. The gamma heather was assembled, placed over the guidewire to the appropriate depth. The guidewire was removed. Utilizing the sleeve, incision was made down to the bone. The guidewire was inserted into the femoral neck and head to the appropriate depth, measurements were taken. [place] [address] OPERATIVE REPORT Name: ROMEL ESQUIVEL Room: [address]#: [id number] Admission: 06/09/18 Attend Phys: Lior Freitas, Discharge: 06/14/18 Date of : 31 Report #: [id number] reamed with the reamer. The guidewire was kept in place. The lag screw was placed over the guidewire to the appropriate depth. The proximal set screw was tightened into the lag screw and backed off a quarter turn. The guidewire was removed. Attention was turned to the distal portion of the heather. Utilizing the guide, a small incision was made. A drill was used to drill across the distal portion of the heather. Measurements were taken. The transverse screw was placed across the bone and heather. The assembling device was then removed. Final pictures revealed acceptable position of the fracture site and implant devices. The deep tissue was closed with 0 Vicryl suture, subcutaneous with 2-0 Vicryl and mode on the skin. Estimated blood loss 100 mL. The wounds were thoroughly irrigated throughout the entire procedure. Needle and sponge count reported as correct. <ELECTRONICALLY SIGNED> By: Kraig Whitfield DO 06/27/18 0932 1541 [id number] Whitfield DO /nt
== END 2018-06-14 16:30 | DRG 480 ==
LOC: M.ERS 21:38 → M.2W 06-09 05:04 → M.TBA-ER 06-09 05:04 → M.2W 06-09 06:00
PROVIDERS: Emergency Medicine; Internal Medicine; Internal Medicine Cardiovascular Disease; ADMIT Family Medicine
PROC: 0QS704Z Reposition Left Upper Femur with Internal Fixation Device, Open Approach (ICD-10-PCS; principal; 2018-06-10)
DX: S72.142A Displaced intertrochanteric fracture of left femur, initial encounter for closed fracture (principal); J96.91 Respiratory failure, unspecified with hypoxia; I21.4 Non-ST elevation (NSTEMI) myocardial infarction; I50.43 Acute on chronic combined systolic (congestive) and diastolic (congestive) heart failure; N17.9 Acute kidney failure, unspecified; E87.1 Hypo-osmolality and hyponatremia; I13.0 Hypertensive heart and chronic kidney disease with heart failure and stage 1 through stage 4 chronic kidney disease, or unspecified chronic kidney disease; I25.10 Atherosclerotic heart disease of native coronary artery without angina pectoris; K57.90 Diverticulosis of intestine, part unspecified, without perforation or abscess without bleeding; N18.9 Chronic kidney disease, unspecified; D64.9 Anemia, unspecified; F41.9 Anxiety disorder, unspecified; I27.20 Pulmonary hypertension, unspecified; I07.1 Rheumatic tricuspid insufficiency; E87.70 Fluid overload, unspecified; Z95.1 Presence of aortocoronary bypass graft; Z90.13 Acquired absence of bilateral breasts and nipples; Z85.3 Personal history of malignant neoplasm of breast; Z90.49 Acquired absence of other specified parts of digestive tract; Z88.0 Allergy status to penicillin; Z88.2 Allergy status to sulfonamides; Z91.040 Latex allergy status; W01.0XXA Fall on same level from slipping, tripping and stumbling without subsequent striking against object, initial encounter; Y93.89 Activity, other specified; Y92.89 Other specified places as the place of occurrence of the external cause; Y99.8 Other external cause status

== ENCOUNTER → 2018-06-19 | Outpatient (CLI) | payer MEDICARE, OTHER ==
[~2018-06-19] MED LIST changes: +ASPIRIN325 PO; +COLACE100 MG PO; +CONSTULOSE10 GM/152 PO; +CORRECTOL5 M1 PO; +ELIQUIS2.5 MG PO; +FLEET ENEMA133 ML RECTAL; +HYDROCODONE-AP1 EAC6 PO; +LEVAQUIN 750 M750 MG PO; +LIDOCAINE PAIN1 EACH TOP; +LISINOPRIL10 MG PO; +NORCO 5-325 TA1 EACH PO; +PREDNISONE 10 M10 MG PO; +PRENATAL PO; +REMERON15 MG PO; +TRAMADOL 50 MG50 MG PO; +TYLENOL EXTRA500 MG PO; +XARELTO10 MG PO; +ZOFRAN ODT4 MG DISSOLVE
[2018-06-19 09:13] VITALS: BP 102/50; BP 130/62; BP 132/70; BP 136/68
[2018-06-19 12:03] VITALS: BP 102/50; BP 129/58; BP 136/62; BP 138/64; BP 139/61
--- NOTE | 2018-06-19 15:29 | NUR ---
ARRIVED PER WHEELCHAIR. TRANSFERED SELF TO RECLINER. BLOOD TRANSFUSION COMPLETED AND TOLERATED WELL. ESCORTED TO FRONT FOR RIDE BACK TO [facility]
== END ==
LOC: M.INFUS 07:34
DX: D64.9 Anemia, unspecified (principal)

== ENCOUNTER 2018-06-23 02:45 | Inpatient (IN) | payer MEDICARE, OTHER ==
[~2018-06-23] VITALS: Ht 149.9 cm; Wt 50.3 kg
--- NOTE | ~2018-06-23 | PROC ---
[address] [address] PROCEDURE REPORT Name: ROMEL ESQUIVEL Room: [address] IN .R.#: [id number] Admission: 06/23/18 Attend Phys: Lior Freitas, Discharge: 06/27/18 Date of : 31 Report #: [id number] THIS REPORT FOR: //name// CC: Iraj Mendes MD DATE OF SERVICE: 06/23/2018 PROCEDURE PERFORMED: Esophagogastroduodenoscopy; ERCP with biliary sphincterotomy, followed by balloon dilation of papilla, followed by bile duct sweep of common bile duct. SEDATION USED: General endotracheal anesthesia. The patient received antibiotics in the form of Ancef prior to procedure. INDICATIONS: The patient is a pleasant 87-year-old white female who was admitted to hospital with rather severe abdominal pain associated with jaundice and suspected stones or sphincter of Oddi dysfunction. She was seen in consultation earlier today and scheduled for today's examination. See consultation for further details. PHYSICAL EXAMINATION: GENERAL: Pleasantly demented 87-year-old white female who is awake and alert. CARDIOPULMONARY: Revealed a regular rate and rhythm. LUNGS: Clear. ABDOMEN: Soft. She was tender in the epigastric area. No rebound or guarding noted. LABORATORY TESTS: Revealed a white count of 17.3, hemoglobin 12.4, platelet count of 288,000 and bilirubin 2.4, alkaline phosphatase 389. Her AST 71, ALT 34. DESCRIPTION OF PROCEDURE: After informed consent, once the patient was adequately sedated and placed in the semi-prone position and intubated, the Olympus video upper scope was advanced under direct vision into the esophagus which appeared completely normal. There were no esophagitis, rings, webs or strictures. Stomach was entered and examined in its entirety and revealed healed erosions and Rosendo erosions from the hiatal hernia sac. She has a large hiatal hernia sac. The antrum, body appeared normal as did the cardia and fundus with exception of hiatal hernia. Pylorus widely patent revealing a normal duodenal bulb and distal duodenum. Scope was withdrawn and exchanged [place] [id number] PROCEDURE REPORT Name: ROMEL ESQUIVELANOR Room: [address] IN [facility].#: [id number] Admission: 06/23/18 Attend Phys: Lior Freitas, Discharge: 06/27/18 Date of : 31 Report #: [id number] The Olympus video duodenoscope was advanced under direct vision into the esophagus and the stomach, the second portion of duodenum where the ampullary orifice was noted. The common bile duct, the duodenal segment was markedly dilated. A Hydratome catheter with guidewire was then advanced with the wire directly into the common bile duct after which the catheter was then advanced and opacification of biliary radicles was performed. The patient's bile duct was markedly dilated up to 14 mm. I do not see any obvious stones or debris within the common bile duct, but the duct was markedly dilated. For this reason, biliary sphincterotomy was performed in the 12 o'clock position followed by biliary balloon dilation of the papilla with a 10 mm x 4 mm biliary balloon dilator. Once this was achieved, bile duct was then swept of any debris with a 12/15 mm extraction balloon. No debris was noted from the same. This could represent either that a stone had passed causing transient biliary obstruction or that she had sphincter of Oddi type 1 causing the same process. In the event, the biliary sphincterotomy, biliary balloon dilation to sweep the common bile duct should take care of the issues related to her cholestatic jaundice. The patient was then extubated and sent to recovery room in stable condition. IMPRESSION: 1. Healed Rosendo erosion within the large hiatal hernia sac. 2. Otherwise, normal endoscopy. 3. Markedly dilated biliary tree of 14 mm with poor emptying from the same. 4. Successful biliary sphincterotomy followed by biliary balloon dilation of papilla. 5. Successful bile duct sweep of the common bile duct of any debris within the same. 6. Pancreatic duct not entered. RECOMMENDATIONS: 1. We will allow the patient go ahead and eat a heart healthy diet at this point in time. 2. If she is doing well, she can possibly go home tomorrow or next day. 3. I spoke with one of the patient's durable power of mergers and acquisitions attorney during the procedure. We will have her follow up with us if she gets out of the hospital as well. By: 1526 Joslyn Nelson DO /gonzalez
[~2018-06-23 02:45] MED LIST changes: -ASPIRIN325 PO; -COLACE100 MG PO; -CONSTULOSE10 GM/152 PO; -CORRECTOL5 M1 PO; -ELIQUIS2.5 MG PO; -FLEET ENEMA133 ML RECTAL; -HYDROCODONE-AP1 EAC6 PO; -LEVAQUIN 750 M750 MG PO; -LIDOCAINE PAIN1 EACH TOP; -LISINOPRIL10 MG PO; -PREDNISONE 10 M10 MG PO; -PRENATAL PO; -REMERON15 MG PO; -TRAMADOL 50 MG50 MG PO; -TYLENOL EXTRA500 MG PO; -XARELTO10 MG PO; -ZOFRAN ODT4 MG DISSOLVE
[2018-06-23 03:04] VITALS: BP 151/67
[2018-06-23 03:17] LABS: HEMATOCRIT 39.3 % (37.0-47.0); HEMOGLOBIN 12.4 gm/dL (12.0-15.0); MCH 27.3 pg (26.0-34.0); MCHC 31.6 g/dL (28.0-37.0); MCV 86.6 fL (80.0-100.0); NUCLEATED RBCS 0 /100WBC; PLATELET COUNT* 283 thou/uL (150-400); RBC 4.54 mil/uL (4.20-5.00); RDW-CV 18.4 % (10.5-14.5); WBC 17.3 thou/uL (4.0-11.0)
[2018-06-23 03:35] LABS: ANION GAP 12 mmol/L (7-16); BUN 26 mg/dL (7-18); CALCIUM 8.9 mg/dL (8.5-10.1); CHLORIDE 98 mmol/L (98-107); CO2 22 mmol/L (21-32); CREATININE 1.5 mg/dL (0.6-1.3); GLUCOSE 138 mg/dL (70-99); POTASSIUM 4.2 mmol/L (3.5-5.1); SODIUM 132 mmol/L (136-145)
[2018-06-23 03:40] LABS: ALBUMIN 3.1 g/dL (3.4-5.0); ALKALINE PHOSPHATASE 389 U/L (46-116); LIPASE 94 U/L (73-393); SGOT 71 U/L (15-37); SGPT 34 U/L (30-65); TOTAL BILIRUBIN 2.4 mg/dL (<0.1-1.0); TOTAL PROTEIN 6.8 g/dL (6.4-8.2); TROPONIN-I LEVEL <0.06 ng/mL (<0.06)
[2018-06-23 04:00] LABS: ABSOLUTE EOSINOPHILS 0.2 thou/uL (0.0-0.7); ABSOLUTE LYMPHOCYTES 0.2 thou/uL (0.8-5.3); ABSOLUTE MONOCYTES 0.3 thou/uL (0.0-1.2); ABSOLUTE NEUTROPHILS 16.6 thou/uL (1.6-8.1); ANISOCYTOSIS 1+; HYPOCHROMASIA 1+; PLATELET ESTIMATE ADEQUATE; POLYCHROMASIA 1+
[2018-06-23 04:01] LABS: TARGET CELLS Occasional
[2018-06-23 04:36] LABS: URINE BLOOD NEGATIVE (Negative); URINE CLARITY CLEAR; URINE COLOR DARK YELLOW; URINE GLUCOSE-RANDOM NEGATIVE (Negative); URINE KETONES TRACE (Negative); URINE LEUKOCYTES-REFLEX NEGATIVE (Negative); URINE NITRITE-REFLEX NEGATIVE (Negative); URINE PROTEIN 1+ (Negative); URINE SPECIFIC GRAVITY 1.025 (1.005-1.030)
[2018-06-23] MEDS ORDERED: ZOFRAN ODT4 MG DISSOLVE (04:38)
[2018-06-23 04:39] LABS: URINE BILIRUBIN 1+ (Negative)
[2018-06-23] MEDS ORDERED: MIRALAX17 GM PO (04:39)
[2018-06-23] MEDS ORDERED: CORRECTOL5 M1 PO (04:40)
[2018-06-23] MEDS ORDERED: FLEET ENEMA133 ML RECTAL (04:41)
[2018-06-23 04:42] LABS: ICTOTEST (BILI CONFIRMATORY) Negative (Negative)
[2018-06-23] MEDS ORDERED: COLACE100 MG PO (04:42)
[2018-06-23] MEDS ORDERED: CONSTULOSE10 GM/152 PO (04:44)
[2018-06-23 05:25] LABS: INR 1.1; PROTIME 11.7 Seconds (9.20-11.50)
[2018-06-23 06:34] VITALS: BP 105/51
[2018-06-23 10:00] VITALS: BP 110/47
--- NOTE | 2018-06-23 10:25 | EKG ---
[place] [address] ELECTROCARDIOGRAM REPORT Name: ROMEL ESQUIVEL Room: [address] ADM IN M.R.#: [id number] Admission: 06/23/18 Attend Phys: Lior Freitas, Discharge: Date of : 32 Report #: [id number] THIS REPORT FOR: //name// [facility] ED Test Date: 2018-06-23 Test Time: 03:16:55 Pat Name: ROMEL ESQUIVEL Department: Room: 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1930 Requested By: Maddy Green Order Number: [id number] MD: Kraig Wiseman Measurements Intervals [place] Rate: 93 P: 41 CO: 98 QRS: -7 QRSD: 89 T: 241 QT: 477 QTc: 594 Interpretive Statements Sinus rhythm Short CO interval T wave inversion anterior leads consider ischemia Lateral leads are also involved Prolonged QT interval Compared to ECG 06/09/2018 03:17:46 Short CO interval now present Left-axis deviation no longer present Electronically Signed On 06-23-2018 10:25:31 ELECTRONICS INSTRUCTOR by Kraig Wiseman [email or web address] <ELECTRONICALLY SIGNED> By: Kraig Wiseman MD, FACC 06/23/18 1025 0316 5 Kraig Wiseman MD, FAC /EPI
[2018-06-23 12:40] VITALS: BP 100/46
[2018-06-23 16:51] VITALS: BP 102/46
--- NOTE | 2018-06-23 17:57 | NUR ---
RECEIVED REPORT FROM RENATA AND ASSUMED CARE OF PT AT 0730. PT IS ALERT AND ORIENTED X 4 WITH CONFUSION AT TIMES. VSS. MED SURG STATUS. ASSESSMENT CHARTED. PT ON O2 2L/NC. SPO2 99%.IV RIGHT AC PATENT WITH IV FLUIDS INFUSING PER ORDERS. PT IS CALM AND COOPERATIVE WITH NO COMPLAINTS OF PAIN. ABDOMEN ULTRASOUND COMPLETED. NPO STATUS ADVANCED TO CLEAR LIQUIDS. PT TO BE NPO AT MIDNIGHT FOR MRCP IN AM. MRI QUESTIONAIRE COMPLETED AND ON CHART. EGD/ERCP PENDING MRCP RESULTS. CONSENT ON CHART BUT NOT SIGNED. LEFT HIP DRESSING CHANGED. SCD'S ON. PICTURE TAKEN OF COCCYX. PT IS UP WITH ONE ASSIST TO BSC. PT INFORMED OF PLAN OF CARE AND COMMUNICATES UNDERSTANDING. HOURLY ROUNDING COMPLETED FOR PT SAFETY. CALL LIGHT AND FALL PRECAUTIONS IN PLACE. WILL CONTINUE TO MONITOR FOR DURATION OF SHIFT.
[2018-06-23] MEDS ORDERED: TYLENOL EXTRA500 MG PO (18:23)
[2018-06-23 20:00] VITALS: BP 122/40
--- NOTE | 2018-06-23 20:00 | NUR ---
RECEIVED REPORT AND ASSUMED CARE OF PT, ASSESSMENT COMPLETED. PT VERY UPPER [place] BUT ABLE TO COMMUNICATED LOUD AND CLOSE TO PT. ASSISTED TO BSC, PT HAVING MOD AMT OF BROWN LIQ STOOL. COCCYX RED. LT HIP DRSG DRY AND INTACT. O2 ON AT 2L/NC, NO SOB NOTED. WILL CONT TO MONITOR AND ASSIST NEEDED.
[2018-06-24 05:55] LABS: CALCIUM 8.3 mg/dL (8.5-10.1); CREATININE 1.6 mg/dL (0.6-1.3); HEMATOCRIT 27.5 % (37.0-47.0); MCH 28.3 pg (26.0-34.0); MCHC 32.6 g/dL (28.0-37.0); MCV 86.6 fL (80.0-100.0); MPV 8.5 fl. (7.2-11.1); NUCLEATED RBCS 0 /100WBC; POTASSIUM 3.1 mmol/L (3.5-5.1); RBC 3.17 mil/uL (4.20-5.00); RDW-CV 18.5 % (10.5-14.5); WBC 4.4 thou/uL (4.0-11.0)
[2018-06-24 05:57] LABS: PLATELET COUNT* 181 thou/uL (150-400)
--- NOTE | 2018-06-24 06:05 | NUR ---
AWAKE FREQ DURING NIGHT WITH C/O LT HIP PAIN. PO MEDS GIVEN X2 AND EFFECTIVE. NPO AFTER MN FOR EGD, ERCP TODAY. ASSISTED TO BSC, HAVING LIQ STOOL AND INCONT FROM URGENCY. HS GOALS OF REST AND SAFETY PARTICALLY ACHIEVED. HOURLY ROUNDING OBSERVED.
[2018-06-24 06:48] LABS: % SATURATION 5 % (20-39); IRON 11 ug/dL (50-175)
[2018-06-24 07:04] LABS: ALBUMIN 2.4 g/dL (3.4-5.0); DIRECT BILIRUBIN 0.3 mg/dL (<0.1-0.3); TOTAL BILIRUBIN 0.6 mg/dL (<0.1-1.0)
[2018-06-24 07:14] LABS: ABSOLUTE EOSINOPHILS 0.1 thou/uL (0.0-0.7); ABSOLUTE LYMPHOCYTES 0.2 thou/uL (0.8-5.3); ABSOLUTE MONOCYTES 0.7 thou/uL (0.0-1.2); ABSOLUTE NEUTROPHILS 3.4 thou/uL (1.6-8.1)
[2018-06-24 07:15] LABS: ANISOCYTOSIS 2+; PLATELET ESTIMATE ADEQUATE
[2018-06-24 07:16] LABS: MICROCYTES 2+
[2018-06-24 07:19] LABS: HYPOCHROMASIA 2+
[2018-06-24 08:15] VITALS: BP 121/62
[2018-06-24 10:30] VITALS: BP 121/62
--- NOTE | 2018-06-24 13:16 | NUR ---
Nutrition: Pt assessed for pressure ulcer on coccyx. Currently NPO for EGD/ERCP. Pt likes Ensure. Will not order at this time d/t NPO status. H/o CAD, HTN, diverticulitis. Liquid BM today. Was eating ~50% of meals before NPO. K+ 3.4, alb 2.4. Usual wt is ~120#, today is recorded as 111#. RD will follow for diet advancement, po intake, BM, need for supplement, wt. Follow up 06/26/18.
[2018-06-24 15:00] VITALS: BP 130/56
--- NOTE | 2018-06-24 15:04 | NUR ---
Pt was out of room when CM went to assess, will f/u later
--- NOTE | 2018-06-24 16:08 | NUR ---
PATIENT NPO THIS AM FOR EGD/ERCP. PATIENT RETURNED TO ROOM AROUND 1500. VITALS STABLE CHARTED. IV SL, SCHED ABX INFUSING. POTASSIUM 3.1, REPLACING PER PROTOCOL PO. PATIENT HEART HEALTHY DIET. PATIENT TO TRANSFER DOWN TO ROOM 103. REPORT CALLED TO GUERLINE MANLEY. M/S STATUS.
[2018-06-24 16:10] VITALS: BP 147/78
--- NOTE | 2018-06-24 17:10 | NUR ---
PT. ARRIVED AT 1600 PER BED ALERT ORIENTED BUT FORGETFUL MCGRATH WEARS HEARING AIDS. HX OF VOMITING ABDOMINAL PAIN. RECENT L HIP REPLACEMENT DRESSING D/I 50% WB L LE PER FAMILY REPORT. DATE WAS May. MUCH BRUISING L SIDE BACK SMALL RED SLIT ABOVE COCCYX NOTED MOIDTURE BARRIER APPLIED. TURNED TO L SIDE TO PREVENT PRESSURE. EGD AND ERCP PROCEDURE TODAY BEFORE TRANSFER TO ROOM 103 FROM 222. IV INFUSING PER RT. ANTECUBITAL PER PUMP.
--- NOTE | 2018-06-24 17:39 | NUR ---
PT. TURNED AND REPOISITIONED EVERY 2HRS AFTER ARRIVAL HOURLY ROUNDING COMPLETED. SITTING UP IN BED AND FEEDING SELF AFTER BRIEF NAP. TOOK MEDS WITH WATER WITHOUT DIFFICULTY. PT. ASSISTS WITH TURNS AND STAYS O L SIDE.
[2018-06-24 21:00] VITALS: BP 136/60
[2018-06-25 04:47] LABS: HEMATOCRIT 27.3 % (37.0-47.0); HEMOGLOBIN 8.8 gm/dL (12.0-15.0); MCH 27.9 pg (26.0-34.0); MCHC 32.3 g/dL (28.0-37.0); MCV 86.4 fL (80.0-100.0); MPV 8.8 fl. (7.2-11.1); RBC 3.16 mil/uL (4.20-5.00); WBC 4.5 thou/uL (4.0-11.0)
[2018-06-25 05:00] LABS: ALBUMIN 2.3 g/dL (3.4-5.0); CALCIUM 8.5 mg/dL (8.5-10.1); CREATININE 1.8 mg/dL (0.6-1.3); MAGNESIUM 1.9 mg/dL (1.8-2.4); TOTAL BILIRUBIN 0.5 mg/dL (<0.1-1.0); TOTAL PROTEIN 5.2 g/dL (6.4-8.2)
[2018-06-25 05:03] LABS: POTASSIUM 4.5 mmol/L (3.5-5.1)
--- NOTE | 2018-06-25 06:07 | NUR ---
PATIENT HAS SLEPT WELL THROUGHOUT MOST OF THE NIGHT. VSS ON RA. PAIN MEDICATION GIVEN AND CHARTED. PATIENT UP WITH ASSIST X 1 TO BSC. PATIENT TURNED EVERY 2HRS AND PRN. MATT CARE PERFORMED. IV IN RIGHT AC-SL. FALL PRECAUTIONS IN PLACE AND HOURLY ROUNDS MADE. WILL CONTINUE WITH PLAN OF CARE AND NURSING TO MONITOR.
[2018-06-25 08:15] VITALS: BP 148/69
--- NOTE | 2018-06-25 10:22 | NUR ---
ASSUMED CARE OF PT THIS AM AROUND 0715- UPON ASSESSMENT PT NOTED TO BE RESTING IN BED- PT A&O X1-2 WITH NOTED CONFUSSION, TORRES MARTINEZ- CONTINENT VS INCONTINENT OF BOWEL AND BLADDER- ASSIST X1 TO BED SIDE COMMODE-LCTA, RESP EVEN AND UN-LABORED- VSS, O2 SAT 985 ON RA- ABDOMEN SOFT/ROUND/NON-TENDER, BS X4 QUADS- LAST BM REPORTED THIS AM- FAIR PO INTAKE NOTED THIS AM WITH BREAKFAST- CHEST X-RAY COMPLETED THIS AM WITH RESULTS NOTED IN MEDITECH- IV NOTED TO RIGHT AC INTACT AND SL, IV ABT GIVEN THIS AM PRESCIBED, NO ADVERSE REACTIONS TO NOTE- PT DENIES ANY C/O PAIN/DISCOMFORT AT THIS TIME- FAMILY AT SIDE VISITING- HOURLY ROUNDS IN PLACE R/T SAFETY/NEEDS- ALL NEEDS MET AT THIS TIME-WCTM
--- NOTE | 2018-06-25 14:45 | NUR ---
PT.UP IN CHAIR. SISTER FROM [place] HERE VISITING. PT.WANTS TO GO BACK TO [facility], AT DISCHARGE,TO A SKILLED BED. SHE HAD BEEN THERE ABOUT 9 DAYS BEFORE BEING SENT BACK WITH NAUSEA AND VOMITING. NORMALLY SHE [place] [address]. SHE HAS A WALKER. MESSAGE LEFT FOR ALBERTO/[facility] TO DISCUSS PT'S RETURN TOMORROW.
--- NOTE | 2018-06-25 16:06 | NUR ---
PT SEVERO RESTING IN BED, FRIEND AT BEDN SIDE- IV TO RIGHT AC NOTED TO HAVE FALLEN OUT THIS SHIFT- POOR PO INTAKE NOTED THIS SHIFT WITH MEALS- PT UP TO BED SIDE CHAIR MOST SHIFT, TOLERATING WELL- C/O PAIN X1 THIS SHIFT TO LEGS- PRN HYDROCODONE GIVEN AT 1230 THIS SHIFT- PT REPORTS MEDICATIONS TO BE EFFECTIVE- CALL LIGHT AND PERSONAL BELONGINGS WITH IN REACH- HOURLY ROUNDS IN PLACE R/T SAFETY/NEEDS- ALL NEEDS MET AT THIS TIME-WCTM
[2018-06-25 16:17] VITALS: BP 139/68
[2018-06-25 20:00] VITALS: BP 130/59
--- NOTE | 2018-06-26 03:30 | NUR ---
ASSESSMEN: PT REMAIN ALERT AND ORIENT TIMES 2, CONFUSED TO TIME, SITUATTION. DID NOT SLEEP WELL DURING THE NIGHT. CONTINUOUSLY CALLED OUT STATING THAT SHE HAD TO USE THE BATHROOM. AT THE BEGINNING OF THE SHIFT, PT'S UO = 40. AFTER GETTING UP TO THE BSC AND TO THE BR ON SEVERAL OCCASSIONS, PT WAS BLADDER SCAN AND SHE WAS ONLY RETAINING THE MAX OF 84 ML. A NEW IV WAS INITATED IN LEFT UPPER ARM, 20G. PT GETS IV ANTIBIOTICS. ACCORDING TO THE NOTES PT MAY DC TO A SNF TODAY, PT IS FROM [facility]. LEFT HIP DRESSING C/D/I. BRUISING ON HIP AND LOWER BACK AREA NOTED. HYDROCODONE WAS GIVEN PRN WITH PARTIAL RELIEF OF PAIN PER PT. AT 0100 PT REQUESTED TO SIT UP IN RECLINER. PT TOLERATED SITTING UP FOR 1.5 HRS. PT IS VERY [place], DOES HAVE AIDS. VSS, AFEBRILE. SLOW PROGRESS TOWARDS DC GOALS. WILL CONTINUE TO MONITOR.
[2018-06-26 05:01] LABS: HEMATOCRIT 31.2 % (37.0-47.0); HEMOGLOBIN 10.1 gm/dL (12.0-15.0); MCH 27.9 pg (26.0-34.0); MCHC 32.5 g/dL (28.0-37.0); MCV 85.9 fL (80.0-100.0); MPV 8.5 fl. (7.2-11.1); RBC 3.63 mil/uL (4.20-5.00); RDW-CV 18.3 % (10.5-14.5); WBC 7.3 thou/uL (4.0-11.0)
[2018-06-26 05:26] LABS: ALBUMIN 2.8 g/dL (3.4-5.0); CALCIUM 8.8 mg/dL (8.5-10.1); CREATININE 1.8 mg/dL (0.6-1.3); MAGNESIUM 1.9 mg/dL (1.8-2.4); POTASSIUM 3.7 mmol/L (3.5-5.1); TOTAL BILIRUBIN 0.5 mg/dL (<0.1-1.0); TOTAL PROTEIN 6.1 g/dL (6.4-8.2)
[2018-06-26 07:39] VITALS: BP 132/62
--- NOTE | 2018-06-26 10:44 | NUR ---
Nutrition: follow up note. Diet has advanced to Heart Healthy. Albumin 2.8, prealb 16.7. Wt still 111#. Had liquid BM. Will order Ensure pudding for added nutrition today. Mild risk. Follow up per protocol.
--- NOTE | 2018-06-26 12:25 | NUR ---
CONNIE/'[facility] CAME TO VISIT. SHE SAID UNFORTUNATELY THEY WILL NOT HAVE A ROOM FOR PT.UNTIL TOMORROW. INFORMED GUERLINE BOOGIE AND . PT.NOTIFIED. SHE SEEMED SHORT OF AIR AND SOME CONFUSION WITH HER STATEMENTS. NOTIFIED GUERLINE WALSH.
[2018-06-26 15:27] VITALS: BP 148/63
--- NOTE | 2018-06-26 15:33 | NUR ---
I have reviewed the reassessment and documentation by student nurse Se Allen and agree
--- NOTE | 2018-06-26 16:10 | CON ---
[address] [address] CONSULTATION Name: ROMEL ESQUIVEL Room: [address] IN M.R.#: [id number] Admission: 06/23/18 Attend Phys: Lior Freitas, Discharge: Date of : 31 Report #: [id number] THIS REPORT FOR: //name// CC: Iraj Gage MD [facility] Lior Mendes MD DATE OF SERVICE: 06/23/2018 REFERRING PHYSICIAN: Lior Freitas MD REASON FOR CONSULTATION: Abdominal pain and elevated liver function test. IMPRESSION: 1. Epigastric and right upper quadrant pain associated with cholestatic jaundice - suspect common bile duct stone or stones. 2. Anemia due to large hiatal hernia with Rosendo erosions. This patient is on chronic Protonix for the same. 3. Dementia. 4. History of breast cancer, for which the patient had undergone previous bilateral mastectomies. RECOMMENDATIONS: 1. Given the fact that the common bile duct has become massive enlarged and she had her gallbladder taken earlier this year, I suspect that she does have a distal common bile duct stone or stones within the same. In any event, we will proceed with an MRCP tomorrow morning and repeating her liver function tests as well. Depending on results of same, she may need to have an EGD to evaluate for healing of her Rosendo erosions, as well as an ERCP with biliary sphincterotomy and/or stent placement. I have discussed these plans with the patient, as well as one of her durable power of attorneys and they are agreeable to this plan as well. The patient is also on board though she does not have a great understanding of the same. HISTORY OF PRESENT ILLNESS: The patient is a very pleasant 87-year-old white female well known to me from previous evaluation earlier this year when she was admitted with acute anemia, associated melena, and hematemesis. Upper endoscopy revealed a large hiatal hernia with multiple Rosendo erosions. She was placed on Protonix for the same with plans for her to have her come back for repeat upper endoscopy in a couple of months. She was due to see me, but because of problems with a recent hip fracture, she has not been able to do so. She is accompanied by one of the sisters from her order who gives most of the history. The patient has been feeling poorly for the last day or two with epigastric pain associated with nausea, vomiting. Pain is over in [place] [address] CONSULTATION Name: ROMEL ESQUIVEL Room: [address] IN .R.#: [id number] Admission: 06/23/18 Attend Phys: Lior Freitas, Discharge: Date of : 31 Report #: [id number] underwent laparoscopic cholecystectomy with intraoperative cholangiogram earlier this year, which suggested there may be a filling defect in distal common bile duct, but her liver function tests improved, so no ERCP was performed. She now presents to the emergency room with these complaints and has an elevated bilirubin of 2.4 and elevated alkaline phosphatase plus an abdominal ultrasound and CT scan, which suggested the common bile duct has become massively dilated up to 14 mm. She was admitted to hospital for further evaluation and treatment. ALLERGIES: LATEX, PENICILLIN, and SULFA. MEDICATIONS: In the MAR. PAST MEDICAL HISTORY: She has a history of coronary artery disease with previous open heart surgery in the past, has had bilateral breast cancer, for which she had surgery for the same, previous appendectomy, hyperlipidemia, diabetes, chronic reflux, hiatal hernia, broken arm, broken hip, anemia secondary to GI blood loss. SOCIAL HISTORY: The patient does not smoke or drink. FAMILY HISTORY: Negative. PHYSICAL EXAMINATION: GENERAL: Pleasant 87-year-old white female who is awake and alert. CARDIOPULMONARY: Revealed a regular rate and rhythm. LUNGS: Clear. ABDOMEN: Soft. She is tender in the epigastric area. No rebound or guarding noted. LABORATORY TESTS: Revealed a white count of 17.3, hemoglobin 12.4, platelet count 283,000, MCV is 86.6 and RDW 18.4. Her total bilirubin is 2.4, alkaline phosphatase 389. Her AST is 71, ALT 34, albumin is 3.1. Her electrolytes are within normal limits. BUN and creatinine are 26 and 1.5 respectively for GFR of 33. DISCUSSION: At the present time, the patient has had problem with recurrent abdominal pain. I suspect that she has a common duct stone or stones causing her biliary obstruction. We will proceed with MRCP tomorrow and likely EGD and ERCP tomorrow afternoon. Discussed the plans with the patient, as well as her durable power of [place] attorney who we will get her consent for the same. <ELECTRONICALLY SIGNED> By: Abdiel Nelson DO 06/26/18 1610 1824 [id number] Nelson DO /nt
--- NOTE | 2018-06-26 17:59 | NUR ---
ASSESSMENT CHARTED. AFEBRILE. VITAL SIGNS STABLE. PT DENIES PAIN. PT WORKED WITH PT TODAY AND TOLERATED WELL. MEDICATION GIVEN. PT WILL GO TO [facility] TOMORROW.
[2018-06-26 20:00] VITALS: BP 147/80
--- NOTE | 2018-06-27 00:19 | NUR ---
ASSESSMENT: PT REMAIN ALERT AND ORIENT TIMES TWO, CONFUSED TO TIME AND SITUATION. NEW ORDER FOR TAMAZAPAM AND MIRTAZAPINE GIVEN WITH GOOD RESULTS. REPORT GIVEN TO RENATA CUNHA AT 0000. PT NOW SLEEPING. VSS, AFEBRILE.
--- NOTE | 2018-06-27 00:41 | NUR ---
ASSUMED CARE OF PT AT 0015 FROM Holly FREY. I AGREE WITH PREVIOUS ASSESSMENT. FALL PRECAUTIONS IN PLACE. CLWR
--- NOTE | 2018-06-27 06:45 | NUR ---
PT HAS SLEPT WELL T/O THIS SHIFT. NO C/O PAIN.
[2018-06-27 08:30] VITALS: BP 168/91
--- NOTE | 2018-06-27 10:40 | NUR ---
[facility] ST[facility]TODAY,IF READY FOR DISCHARGE. THEY CAN PICK HER UP PER VAN AT 1400. WILL FAX DISCHARGE ORDERS/SUMMARY WHEN RECEIVED TO [facility] [phone].
[2018-06-27] MEDS ORDERED: XARELTO10 MG PO (10:46)
[2018-06-27] MEDS ORDERED: REMERON15 MG PO (10:47)
[2018-06-27] MEDS ORDERED: PRENATAL PO (10:48)
[2018-06-27] MEDS ORDERED: LEVAQUIN 750 M750 MG PO (10:48)
[2018-06-27] MEDS ORDERED: LISINOPRIL10 MG PO (10:49)
[2018-06-27 13:26] VITALS: BP 168/91
--- NOTE | 2018-06-27 13:28 | NUR ---
PT.TO DISCHARGE TODAY BACK TO [facility]. ALBERTO/NATE SAID THEY CAN PICK HER UP AT 1400 PER WC VAN. CHART COPIED TO GO WITH PT. NURSING TO CALL REPORT TO NUMBER PROVIDED. FAXED DISCHARGE SUMMARY,ORTHO CONSULT ADN EGD PROCEDURE REPORT TO ALBERTO. NOTIFIED PT.AND FRIEND OF GRINDER TIME.
[2018-06-27] MEDS ORDERED: HYDROCODONE-AP1 EAC6 PO (14:02)
[2018-06-27 14:15] VITALS: BP 168/91
[2018-06-27 14:23] VITALS: BP 168/91
[2018-06-27 14:29] VITALS: BP 168/91
--- NOTE | 2018-06-27 15:36 | NUR ---
PT ALERT AND ORIENTED 2-3. CONFUSED AT TIMES. DENIES NAUSEA. RECEIVED PO HYDROCONDONE FOR PAIN @ 1137. UP WITH ASSIST X 1 WITH GAIT BELT AND WALKER. SIGNIFICANT BRUISING NOTED ON UPPER BACK. PT SAMISH. IV REMOVED. [facility] @ 13:25. PRESCRIPTION, DISCHARGE INSTRUCTIONS, AND COPY OF CHART SENT WITH PT. PT LEFT UNIT @ 14:35 BY WHEELCHAIR WITH TRANSPORTER TO LEAVE BY WHEELCHAIR VAN.
[2018-06-27 15:44] VITALS: BP 168/91
== END 2018-06-27 14:35 | DRG 871 ==
LOC: M.ERS 02:45 → M.TBA-ER 06:18 → M.2W 06:18 → M.ORTHSURG 06-24 16:09
PROVIDERS: Emergency Medicine; Family Medicine; Internal Medicine; Internal Medicine Gastroenterology; ADMIT Family Medicine
PROC: 0F798ZZ Dilation of Common Bile Duct, Via Natural or Artificial Opening Endoscopic (ICD-10-PCS; principal; 2018-06-24)
DX: A41.9 Sepsis, unspecified organism (principal); I50.33 Acute on chronic diastolic (congestive) heart failure; J15.6 Pneumonia due to other Gram-negative bacteria; N18.4 Chronic kidney disease, stage 4 (severe); I13.0 Hypertensive heart and chronic kidney disease with heart failure and stage 1 through stage 4 chronic kidney disease, or unspecified chronic kidney disease; I25.10 Atherosclerotic heart disease of native coronary artery without angina pectoris; F03.90 Unspecified dementia, unspecified severity, without behavioral disturbance, psychotic disturbance, mood disturbance, and anxiety; D63.8 Anemia in other chronic diseases classified elsewhere; D50.9 Iron deficiency anemia, unspecified; K44.9 Diaphragmatic hernia without obstruction or gangrene; K83.8 Other specified diseases of biliary tract; Z95.1 Presence of aortocoronary bypass graft; Z85.3 Personal history of malignant neoplasm of breast; Z87.81 Personal history of (healed) traumatic fracture; Z87.01 Personal history of pneumonia (recurrent); Z90.13 Acquired absence of bilateral breasts and nipples; Z90.49 Acquired absence of other specified parts of digestive tract; Z79.82 Long term (current) use of aspirin; Z79.899 Other long term (current) drug therapy; Z88.0 Allergy status to penicillin; Z88.2 Allergy status to sulfonamides; Z91.040 Latex allergy status; Z80.0 Family history of malignant neoplasm of digestive organs

== ENCOUNTER 2018-07-02 19:37 | Inpatient (IN) | payer MEDICARE, OTHER ==
[~2018-07-02] VITALS: Ht 149.9 cm; Wt 57.4 kg
--- NOTE | ~2018-07-02 | OP ---
[address] [address] OPERATIVE REPORT Name: ROMEL ESQUIVEL Room: [address] IN ..#: [id number] Admission: 07/02/18 Attend Phys: Cathy Dewitt MD Discharge: 07/08/18 Date of : 32 Report #: [id number] THIS REPORT FOR: //name// CC: Cathy Mendes DATE OF SERVICE: 07/03/2018 PREOPERATIVE DIAGNOSIS: Right intertrochanteric femur fracture. POSTOPERATIVE DIAGNOSIS: Right intertrochanteric femur fracture. PROCEDURE: Closed reduction and cephalomedullary nailing of right intertrochanteric femur fracture, physician-directed fluoroscopy less than 1 hour. SURGEON: Nic Latif DO CRICKET COACH: Bright Street DO ANESTHESIA: General. ANTIBIOTICS: Ancef IV preoperatively. BLOOD LOSS: 50 mL. FLUIDS: 1000 mL lactated Ringer's. COMPLICATIONS: None. SPECIMENS: Femoral reamings sent to pathology. DRAINS: None. CONDITION: The patient is stable to PACU. IMPLANTS: Oanh gamma nail, 11 x 340 mm x 125 degree with a 95 mm lag screw and one 5 mm interlocking screw statically. INDICATIONS FOR PROCEDURE: The patient was admitted to [facility] after she had a fall and sustained a right hip fracture. She has undergone operative fixation for a left hip fracture just within the last month. She is having pain in that extremity. Recommended operative fixation of the right hip, went over this with her and her sisters from ____ as well as her biological sister who were all present, just any questions they had, went over with them the plan for surgery as well as all details associated with it including risks and complications. Please see my consultation note for full [address] [address] OPERATIVE REPORT Name: ROMEL ESQUIVEL Room: [address] IN [facility]#: [id number] Admission: 07/02/18 Attend Phys: Cathy Dewitt MD Discharge: 07/08/18 Date of : 32 Report #: [id number] details of our discussion we had. We obtained consent to proceed. DESCRIPTION OF PROCEDURE: I marked the right lower extremity in the presence of the operative team members, everyone agreed this was correct. She was taken back to the operative suite where a briefing was performed indicating correct patient, procedure, site, antibiotics and that implants were present and sterile. All team members agreed. General anesthetic was administered. She was transferred over to the operative table in supine position, well-padded and secured. The table was used to perform a closed reduction, which was confirmed on multiplanar C-arm imaging to be appropriate. Right lower extremity was then sterilely prepped and draped in standard fashion. Timeout was performed indicating correct patient, procedure, and site, antibiotics and that implants were present sterile. All team members agreed. We marked out our incisions with the help of C-arm. We then made an incision proximal to the greater trochanter, scalpel through skin and careful soft tissue dissection down to the greater trochanter. A guidewire was inserted at the appropriate position, confirmed on multiplanar C-arm imaging. We then reamed over that guidewire. We then placed a ball tip guidewire down, confirmed that it was in the appropriate position on AP and lateral images of the knee. I then went back up to the hip and measured, it was measuring for 340 mm. Therefore, we performed an implant timeout and the 11 x 340 mm x 125 degree nail was drawn on to the back table. Prior to inserting this, we reamed over the guidewire with a 12.5 mm reamer, inserted the heather over this, made an incision for a double sleeve, inserted that down to bone. A guidewire for the lag screw was placed in the appropriate position on AP and lateral images, measured, reamed to 90 and placed a 95 screw. We then engaged the set screw and backed off 1 quarter turn. Confirmed the set screw was engaged by trying to turn the handle that could not be. We therefore removed the screwdriver handle, guidewire and external aiming guide. C-arm images were saved AP and lateral showing excellent position of hardware and fracture reduction. We then turned our attention distally where perfect oneida technique was performed to place a static screw. Scalpel through skin drilled and measured and placed the appropriate size static screw. C-arm images showed that this was within the nail and well seated. Saved those images, dismissed C-arm. Thoroughly irrigated all incision sites with normal saline and closure was with 0 Vicryl [id number] buried deep, 2-0 Monocryl, subQ and then mode for skin. All counts were correct and final, based off of our operative debriefing where we confirmed the procedure, blood loss and the counts were correct and final. All team members agreed. Sterile dressings of Xeroform gauze, 4 x 4s, ABD and tape were applied. She was extubated and transferred off the operative table, taken to PACU stable. POSTOPERATIVE COURSE AND EVALUATION: I called her sister on the phone and spoke with her sisters from [employer] addressing questions they had. They were thankful for my time and efforts. When I went to the PACU, she was having a little bit of low saturation and the recommendation between Dr. Voss, the Anesthesia, myself was that she go to the ICU for closer [place]. [place] [address] OPERATIVE REPORT Name: ROMEL ESQUIVELANOR Room: [address] M.R.#: [id number] Admission: 07/02/18 Attend Phys: Cathy Dewitt MD Discharge: 07/08/18 Date of : 32 Report #: [id number] as tolerated. DVT prophylaxis will be pharmacological and mechanical. PT, OT made sure that the care team does not hesitate to call me any time with questions or concerns. By: [id number] 1938Nic Latif DO /nt
[~2018-07-02 19:37] MED LIST changes: +COLACE100 MG PO; +CONSTULOSE10 GM/152 PO; +CORRECTOL5 M1 PO; +FLEET ENEMA133 ML RECTAL; +HYDROCODONE-AP1 EAC6 PO; +LEVAQUIN 750 M750 MG PO; +LISINOPRIL10 MG PO; +PRENATAL PO; +REMERON15 MG PO; +TYLENOL EXTRA500 MG PO; +XARELTO10 MG PO; +ZOFRAN ODT4 MG DISSOLVE
[2018-07-02 19:41] VITALS: BP 169/97
[2018-07-02] MEDS ORDERED: ASPIRIN325 PO (19:56)
[2018-07-02 20:46] LABS: HEMATOCRIT 30.1 % (37.0-47.0); HEMOGLOBIN 9.8 gm/dL (12.0-15.0); MCH 27.7 pg (26.0-34.0); MCHC 32.4 g/dL (28.0-37.0); MCV 85.5 fL (80.0-100.0); NUCLEATED RBCS 0 /100WBC; PLATELET COUNT* 190 thou/uL (150-400); RBC 3.52 mil/uL (4.20-5.00); RDW-CV 19.6 % (10.5-14.5); WBC 10.6 thou/uL (4.0-11.0)
[2018-07-02 20:52] LABS: CALCIUM 8.7 mg/dL (8.5-10.1); CREATININE 1.5 mg/dL (0.6-1.3); POTASSIUM 3.2 mmol/L (3.5-5.1)
[2018-07-02 20:54] LABS: APTT 32.6 Seconds (25.0-31.3); INR 1.2; PROTIME 11.9 Seconds (9.20-11.50)
[2018-07-02 20:57] LABS: ALBUMIN 2.8 g/dL (3.4-5.0); TOTAL BILIRUBIN 0.8 mg/dL (<0.1-1.0); TOTAL PROTEIN 6.3 g/dL (6.4-8.2)
[2018-07-02 21:19] LABS: ABSOLUTE EOSINOPHILS 0.2 thou/uL (0.0-0.7); ABSOLUTE LYMPHOCYTES 0.4 thou/uL (0.8-5.3); ABSOLUTE MONOCYTES 0.7 thou/uL (0.0-1.2); ABSOLUTE NEUTROPHILS 9.2 thou/uL (1.6-8.1); PLATELET ESTIMATE ADEQUATE
[2018-07-02 22:04] VITALS: BP 162/70
[2018-07-02 22:15] VITALS: BP 173/102
[2018-07-03] VITALS (10 sets, daily range): BP systolic 106–146; BP diastolic 52–90
[2018-07-03 05:18] LABS: HEMATOCRIT 28.1 % (37.0-47.0); HEMOGLOBIN 9.3 gm/dL (12.0-15.0); MCH 28.3 pg (26.0-34.0); MCV 85.7 fL (80.0-100.0); MPV 8.6 fl. (7.2-11.1); RBC 3.28 mil/uL (4.20-5.00); RDW-CV 19.7 % (10.5-14.5); WBC 9.6 thou/uL (4.0-11.0)
[2018-07-03 05:30] LABS: CALCIUM 8.2 mg/dL (8.5-10.1); CREATININE 1.4 mg/dL (0.6-1.3); MAGNESIUM 1.6 mg/dL (1.8-2.4); POTASSIUM 3.3 mmol/L (3.5-5.1)
--- NOTE | 2018-07-03 14:25 | EKG ---
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 : 1930 Requested By: Anish Gtz Order Number: [id number] MD: Alex Garrett Measurements Intervals [place] Rate: 103 P: 72 DC: 172 QRS: 11 QRSD: 79 T: 250 QT: 404 QTc: 529 Interpretive Statements Sinus tachycardia with irregular rate Borderline low voltage, extremity leads Prolonged QT interval Compared to ECG 06/23/2018 03:16:55 Sinus rhythm no longer present T-wave abnormality no longer present Possible ischemia no longer present Electronically Signed On 07-03-2018 14:25:21 [employer] by Alex Garrett [email or web address] <ELECTRONICALLY SIGNED> By: Alex Garrett MD, FAC 07/03/18 1425 52 52 Alex Garrett MD, [facility] /EPI
[2018-07-04] VITALS (12 sets, daily range): BP systolic 88–131; BP diastolic 46–62
[2018-07-04 03:21] LABS: HEMATOCRIT 24.7 % (37.0-47.0); HEMOGLOBIN 8.2 gm/dL (12.0-15.0)
[2018-07-04 03:32] LABS: CREATININE 1.6 mg/dL (0.6-1.3); MAGNESIUM 1.9 mg/dL (1.8-2.4)
[2018-07-04 03:33] LABS: POTASSIUM 5.4 mmol/L (3.5-5.1)
[2018-07-05 00:06] VITALS: BP 115/66
[2018-07-05 04:22] VITALS: BP 121/63
[2018-07-05 04:39] LABS: HEMATOCRIT 24.3 % (37.0-47.0); HEMOGLOBIN 7.8 gm/dL (12.0-15.0)
[2018-07-05 09:00] VITALS: BP 136/68
[2018-07-05 11:57] VITALS: BP 134/70
[2018-07-05 16:09] VITALS: BP 113/57
[2018-07-05 19:20] VITALS: BP 113/61
[2018-07-06] VITALS: BP 115/58
[2018-07-06 04:00] VITALS: BP 117/62
[2018-07-06 08:00] VITALS: BP 125/60
[2018-07-06 12:10] VITALS: BP 111/50
[2018-07-06 17:18] VITALS: BP 125/50
[2018-07-06 19:40] VITALS: BP 121/55
[2018-07-07] VITALS: BP 115/57
[2018-07-07 08:00] VITALS: BP 145/65
[2018-07-07 12:00] VITALS: BP 133/62
[2018-07-07 16:00] VITALS: BP 125/58
[2018-07-07 19:53] VITALS: BP 138/66
[2018-07-08 00:22] VITALS: BP 128/63
[2018-07-08 08:10] VITALS: BP 138/69
[2018-07-08 12:00] VITALS: BP 131/64
[2018-07-08] MEDS ORDERED: COLACE100 MG PO (13:15)
[2018-07-08] MEDS ORDERED: ELIQUIS2.5 MG PO (13:16)
[2018-07-08] MEDS ORDERED: LIDOCAINE PAIN1 EACH TOP (13:20)
[2018-07-08] MEDS ORDERED: MIRALAX17 GM PO (13:21)
[2018-07-08] MEDS ORDERED: TRAMADOL 50 MG50 MG PO (13:21)
[2018-07-08] MEDS ORDERED: PREDNISONE 10 M10 MG PO (13:23)
[2018-07-08 13:46] VITALS: BP 131/64
--- NOTE | 2018-07-09 13:08 | PATH ---
[address] [address] PATHOLOGY RPT PROCEDURE Name: ROMEL BRITTANOR Room: [address] IN M.R.#: [id number] Admission: 07/02/18 Date of : 32 Discharge: 07/08/18 Report #: [id number] Path Case #: [id number] [facility] Accession Number: [id number] . 01 Material submitted: . RIGHT FEMORAL REAMINGS . 01 Clinician provided ICD-10: S72.141A . 01 Clinical history: . Preop DX: Intertrochanteric fracture Postop DX: Right intratrochanteric fracture History of breast cancer R/O metastatic cancer . 02 Diagnosis: Right femoral reamings: - Fragments of benign and viable cancellous bone and abundant benign hematopoietic elements. (BECKY:pit 07/08/2018) QTP/07/08/2018 . 02 Electronically signed: . Daron Bartlett MD, Pathologist NPI- [id number] . 01 Gross description: . Received in formalin labeled "Romel Britt, right femoral reaming," is a 2.7 x 2.6 x 0.3 cm aggregate of granular, dark velasquez-brown reamings. The specimen is submitted entirely in cassette A1, following decalcification. (DAC; 07/05/2018) XDC/XDC . 02 Pathologist provided ICD-10: S72.141A, Z85.3 . 02 CPT . 974750, 313751 Specimen Comment: A courtesy copy of this report has been sent to Specimen Comment: [phone], , . Specimen Comment: Report sent to ,DR ABARCA / DR ISSA Specimen Comment: A duplicate report has been generated due to demographic updates. Performed at: [address] [facility] [address], [place], [place] [id number] MD Jh Almaguer MD Phone: [phone] [place] [address] PATHOLOGY RPT PROCEDURE Name: ROMEL BRITTANOR Room: [address] M.R.#: [id number] Admission: 07/02/18 Date of : 32 Discharge: 07/08/18 Report #: [id number] Path Case #: [id number] Performed at: 02 [facility] [address], [place] [id number] MD Daron Bartlett MD Phone: [phone]
== END 2018-07-08 16:00 | DRG 480 ==
LOC: M.ERS 19:37 → M.3W 20:09 → M.TBA-ER 20:09 → M.2W 20:09 → M.3W 22:09 → M.ICU 07-03 14:49 → M.2W 07-04 11:08
PROVIDERS: Nurse Practitioner Family; Orthopaedic Surgery; ADMIT Internal Medicine
PROC: 0QS634Z Reposition Right Upper Femur with Internal Fixation Device, Percutaneous Approach (ICD-10-PCS; principal; 2018-07-03)
DX: S72.141A Displaced intertrochanteric fracture of right femur, initial encounter for closed fracture (principal); I50.43 Acute on chronic combined systolic (congestive) and diastolic (congestive) heart failure; J18.9 Pneumonia, unspecified organism; N18.4 Chronic kidney disease, stage 4 (severe); I13.0 Hypertensive heart and chronic kidney disease with heart failure and stage 1 through stage 4 chronic kidney disease, or unspecified chronic kidney disease; I25.10 Atherosclerotic heart disease of native coronary artery without angina pectoris; Z95.1 Presence of aortocoronary bypass graft; Z90.13 Acquired absence of bilateral breasts and nipples; Z85.3 Personal history of malignant neoplasm of breast; Z90.49 Acquired absence of other specified parts of digestive tract; Z88.0 Allergy status to penicillin; Z88.2 Allergy status to sulfonamides; Z91.040 Latex allergy status; Z79.82 Long term (current) use of aspirin; Z79.899 Other long term (current) drug therapy; Z80.0 Family history of malignant neoplasm of digestive organs; W18.2XXA Fall in (into) shower or empty bathtub, initial encounter; Y93.89 Activity, other specified; Y92.89 Other specified places as the place of occurrence of the external cause; Y99.8 Other external cause status